=== PATIENT | female | born 1940 | race Caucasian/White ===

== ENCOUNTER 2017-11-16 09:33 | Outpatient (CLI) | payer MEDICARE, OTHER | END 2017-11-16 09:34 | disposition home or self-care (01) | LOC: BICMAMMO 09:33 | PROVIDERS: ATTEND Family Medicine | DX: Z12.31 Encounter for screening mammogram for malignant neoplasm of breast (principal) | CPT/HCPCS: 77063; 77067 ==

== ENCOUNTER 2019-01-13 10:56 | Inpatient (IN) | payer MEDICARE, OTHER ==
[2019-01-13 11:52] LABS: #Basophils 0.1 thou/uL (0.0-0.2); #Eosinphils 0.1 thou/uL (0.0-0.7); #Lymphocytes 1.7 thou/uL (1.20-3.40); #Monocytes 0.5 thou/uL (0.11-0.59); #Neutrophils 3.4 thou/uL (1.40-6.50); %Basophils 1.2 % (0.0-1.0); %Eosinophils 1.2 % (0.0-10.0); %Lymphocytes 29.2 % (21.0-51.0); %Monocytes 8.7 % (0.0-10.0); %Neutrophils 59.7 % (42.0-75.0); Hemoglobin 13.9 g/dL (12.0-16.0); Mean Corpuscular HGB CONC 31.9 g/dL (32.0-36.0); Mean Corpuscular Hemoglobin 28.3 pg (27.0-31.0); Mean Platelet Volume 9.4 fL (7.4-10.4); Platelet Count 164 thou/uL (130-400); Red Blood Cell (RBC) Count 4.91 mill/uL (4.20-5.40); White Blood Cell (WBC) Count 5.7 thou/uL (4.8-10.8)
[2019-01-13 11:58] LABS: INR-International Normal Ratio 2.4; PTT 34.5 SEC (22.9-36.1); Prothrombin Time 26.1 SEC (12.0-14.7)
[2019-01-13 12:06] LABS: Bilirubin Small (Negative); Blood, Urine Trace (Negative); Clarity CLOUDY (Clear); Glucose, Urine (Dipstick) Negative (Negative); Leukocyte Small (Negative); Nitrite Positive (Negative); Protein, Urine (Dipstick) Trace mg/dL (Neg-Trace); Specific Gravity, Urine 1.026 (1.002-1.036); Urobilinogen 0.2 mg/dL (0.2-1.0)
[2019-01-13 12:08] LABS: Bacteria/HPF 4+ HPF (None Seen); Squamous Epithelial 0-3 HPF (0-3)
[2019-01-13 12:10] LABS: Pathc Cast-AUWi Flag 5.71 (0-2.49)
[2019-01-13 12:19] LABS: ALT (SGPT) 20 U/L (8-55); AST (SGOT) 34 U/L (5-34); Albumin 3.8 g/dL (3.4-4.8); Alkaline Phosphatase 48 U/L (40-150); Anion Gap 15 mmol/L (10-20); BUN (Urea Nitrogen) 14 mg/dL (9.8-20.1); Bilirubin, Total 1.1 mg/dL (0.2-1.2); CK (CPK) 61 U/L (29-168); Calc. Creatinine Clearance 0 mL/min (70-130); Calcium 9.1 mg/dL (7.8-10.44); Carbon Dioxide 21 mmol/L (23-31); Chloride 110 mmol/L (98-107); Estimated GFR-MDRD Greater than 90; Globulin 3.3 g/dL (2.4-3.5); Glucose 105 mg/dL (83-110); Potassium 4.8 mmol/L (3.5-5.1); Protein, Total 7.1 g/dL (6.0-8.3); Sodium 141 mmol/L (136-145)
[2019-01-13 12:24] LABS: RBC/HPF 0-3 HPF (0-3)
[2019-01-13 12:25] LABS: Hyaline Casts/LPF 0-3 HYALINE CAST LPF (0-3 Hyaline)
--- NOTE | 2019-01-13 12:36 | CT ---
CT BRAIN NONCONTRAST: DATE: 01/13/2019 TIME: 12:09 p.m. HISTORY: A 78-year-old female with altered mental status. Confusion. Rule out stroke. COMPARISON: 01/05/2019 FINDINGS: Again noted is the moderate-sized region of low attenuation in the right occipital lobe. This is pro bably an infarction, either old or subacute (old is favored). There is a smaller possibility that th is could represent vasogenic edema, surrounding a tumor. Typically, an MRI with and without contrast would be recommended for this type of situation. However, the patient has a pacemaker. Therefore, contrast enhanced brain CT is recommended. The ventricles are normal in size and configuration. The re is diffuse prominence of the sulcus markings, representing diffuse brain parenchymal volume loss, typical for this age group. No acute intraaxial hemorrhage, mass effect, midline shift, or extraaxia l fluid collection. The calvarium is intact. There is no interval change overall. IMPRESSION: 1. No acute intracranial findings. 2. Moderate sized region of intraaxial low attenuation in the right occipital lobe, favored to repre sent an old or subacute infarction, in the right posterior cerebral artery territory, rather than rep resenting vasogenic edema around a neoplasm. In order to rule out the latter possibility, a contrast enhanced brain CT is recommended (unless there are contraindications). 3. No interval change overall since 01/05/2019. SHAWNEE Pollard POS: ABUNDIO
[2019-01-13] MEDS ORDERED: ISOVUE-370 76%-LOCM 1 ML ONE (12:47)
[2019-01-13] MEDS ORDERED: cefTRIAXone\\ROCEPHIN 1 GM VIAL ONE (13:05)
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
[2019-01-13 13:52] LABS: Digoxin 0.75 ng/mL (0.8-2.0)
--- NOTE | 2019-01-13 15:00 | PDOC.EVN ---
Event Note - Event Note Event Note: Date/Time: 01/13/19 1456 I personally evaluated the patient and discussed the management with Dr. Caba I agree with the History, Examination, Assessment and Plan documented above with any addition or exceptions noted below - 78 yo female with h/o A-fib on warfarin, hypothyroidism, NEGRITA, dementia brought to hospital due to worsening confusion over last 2 weeks. Recently seen by PCP and started on donazepril and had CT scan of brain. Son reports that plan was to obtain an MRI but that had not been scheduled yet. Denies any fever/chills/ N/V. PMH/PSH/Meds/SH reviewed and agree with resident's documentation. BP: 138/89 HR: 87 RR: 15 Tmax: 97.8 Pox: 98% on RA Wt: 64 kg Exam repeated by me and agree with resident's findings. Labs: WBC=5.7, H/H=13.9/43.7, Agc=999, UD=734, K=4.8, Ma=622, CO2=21, BUN/Cr=14/0.60, Udwx=561, Trop I,0.010, PT/INR=26.1/2.4, digoxin=0.75, U/A= (+) nitrite, tr blood, small LAE, 11-20 WBC, 4+ bact. CT brain- moderate sized area of intraaxial lowattenuatpmin R occipital lobe favoring old or subacute infarct. A/P: 1) AMS- increased confusion- Admit to stroke. Will check MRI if able due to findings on CT scan. On warfaring no need for aspirin. 2) UTI- start rocephin. Check urine culture. May also be contributing to patient's confusion. 3) H/o Afib now with pacer- continue warfarin. Monitor PT/INR. 4) Hypothyroidism- continue home meds.
[2019-01-13] MEDS ORDERED: Ondansetron ODT 4 MG TAB PO PRN (16:03)
[2019-01-13] MEDS ORDERED: Acetaminophen 325 MG TAB PO PRN (16:03)
[2019-01-13 16:06] VITALS: BMI 25.8
[2019-01-13 16:37] LABS: Amphetamine Not Detected (NotDetected); Barbiturates Screen Not Detected (NotDetected); Benzodiazepine Screen Not Detected (NotDetected); Cocaine Metabolite Screen Not Detected (NotDetected); Medtox Control Line Valid? VALID (VALID); Medtox Reader # READER 1; Methadone Not Detected (NotDetected); Methamphetamine Not Detected (NotDetected); Opiate Screen Not Detected (NotDetected); Oxycodone Screen Not Detected (NotDetected); Phencyclidine (PCP) Not Detected (NotDetected); THC/Cannabinoid Screen Not Detected (NotDetected); Tricyclic Screen Not Detected (NotDetected)
[2019-01-13 17:07] LABS: HIV (1/2) Antibody/Antigen Non-Reactive (NonReactive); HIV 1/2 INDEX 0.11 S/CO (<1.00); Syphilis Antibody Nonreactive (Nonreactive); Syphilis Antibody Index 0.06 S/CO (<1.00 Non-Reactive)
[2019-01-13] MEDS: Warfarin Sodium 2.5 MG TAB PO SCH (17:16)
--- NOTE | 2019-01-13 17:31 | CT ---
PRE AND POSTCONTRAST ENHANCED CT IMAGES BRAIN WELL CONTRAST ENHANCED CTA CAROTID ARTERY AND INT RACRANIAL CTA 01/13/19 2D and 3D reconstructed images performed on an independent 3D workstation. Pre and postcontrast enhanced CT images of the brain demonstrate an old area of infarction in the rig ht occipital area. This was seen on the patient's previous CT from 01/05/19 but has developed since th e previous CT from 03/19/16. CTA carotids/neck CT demonstrate multiple calcification of the aortopulmonary lymph nodes. This may r epresent previous inflammatory process. The right brachiocephalic artery is patent. The right and left subclavian arteries are patent. RIGHT CAROTID: The right common carotid artery is patent. Some mild atherosclerotic plaque seen in the distal right CCA extending to the right ECA. The right ICA is patent along its entire course. LEFT CAROTID: The left common carotid artery is patent. Minimal distal most aspect left CCA calcification seen. The right and left vertebral arteries are patent. INTRACRANIAL CTA: The supraclinoid ICAs bilaterally are unremarkable. Good flow seen in the GABRIELLA and MCA vessels bilater ally without evidence of occlusion. The right and left posterior cerebral arteries are patent. IMPRESSION: Subacute or old right occipital area of stroke present on patient's recent CT from 01/05/19. No other significant intracranial abnormality seen. No significant carotid or intracranial vascular abnormalit y seen. POS: TRAVIS
[2019-01-13] MEDS ORDERED: Prevnar 13-Val Conj/PF 0.5 ML SYRINGE IM ONE (21:00)
[2019-01-14 05:47] LABS: Anion Gap 11 mmol/L (10-20); BUN (Urea Nitrogen) 8 mg/dL (9.8-20.1); Calc. Creatinine Clearance 76 mL/min (70-130); Calcium 8.6 mg/dL (7.8-10.44); Carbon Dioxide 22 mmol/L (23-31); Chloride 110 mmol/L (98-107); Estimated GFR-MDRD Greater than 90; Glucose 110 mg/dL (83-110); Sodium 139 mmol/L (136-145)
--- NOTE | 2019-01-14 05:57 | PDOC.FM ---
- Subjective Subjective: A&O x2, not to time. Denies weakness, dysuria. No overnight events. She is unsure of the type of pacemaker she has placed. - Objective MAR Reviewed: Yes Vital Signs & Weight: Vital Signs (12 hours) Temp Pulse Resp BP Pulse Ox 01/14/19 03:48 97.9 F 72 18 140/87 97 01/13/19 23:47 98.1 F 70 12 103/69 95 01/13/19 20:00 98.7 F 72 16 123/78 97 Weight Weight 64.042 kg I&O: 01/12/19 01/13/19 01/14/19 06:59 06:59 06:59 Intake Total 540 Balance 540 Result Diagrams: 01/13/19 11:16 01/14/19 05:12 Phys Exam - Physical Examination Constitutional: NAD HEENT: moist MMs Neck: supple Respiratory: no wheezing, clear to auscultation bilateral Cardiovascular: RRR, no significant murmur V paced Gastrointestinal: soft, non-tender, positive bowel sounds Musculoskeletal: no edema Neurological: non-focal, moves all 4 limbs Psychiatric: normal affect Deviation from normal: A&O to person and place. Not to time Skin: cap refill <2 seconds Dx/Plan (1) UTI (urinary tract infection) Status: Acute (2) Acute encephalopathy Code(s): G93.40 - ENCEPHALOPATHY, UNSPECIFIED Status: Acute (3) Dementia Code(s): F03.90 - UNSPECIFIED DEMENTIA WITHOUT BEHAVIORAL DISTURBANCE Status: Acute (4) Generalized anxiety disorder Code(s): F41.1 - GENERALIZED ANXIETY DISORDER Status: Chronic (5) HTN (hypertension) Code(s): I10 - ESSENTIAL (PRIMARY) HYPERTENSION Status: Chronic (6) Hypothyroidism Code(s): E03.9 - HYPOTHYROIDISM, UNSPECIFIED Status: Chronic (7) Vitamin D deficiency Code(s): E55.9 - VITAMIN D DEFICIENCY, UNSPECIFIED Status: Chronic (8) Atrial fibrillation Code(s): I48.91 - UNSPECIFIED ATRIAL FIBRILLATION Status: Chronic - Plan Plan: 78yo female with pmh of dementia and atrial fibrillation on chronic AC with warfarin admitted for acute encephalopathy of 2 weeks duration Acute encephalopathy - Uncertain etiology. Treating UTI found on UA, culture pending. - Recent bloodwork 2 weeks ago, normal B12 & TSH levels - CT 3/8: subacute infarct vs vasogenic edema around neoplasm Right occipital lobe - Head & neck CTA: Subacute or old right occipital area of stroke seen on CT - UDS, RPR, HIV neg. Digoxin 0.75 - Haldol PRN for agitation, frequently reorientation. Avoid caffeine which, per son, provokes agitation. - Plan for MRI although pt with pacemaker, this will need to be evaluated to see if it is compatible. - Unable to have CT with contrast today due to contrast yesterday. Will order this for tomorrow. - PT/OT ordered to eval for placement - Echo ordered UTI - UA: cloudy & reynaldo in color with 4+ bacteria, LE, & nitrites. - Previous urine Cxs have been + for E. coli sensitive to cephalosporins - Continue IV Rocephin - Culture pending Hyperchloremic metabolic acidosis - Bicarb slightly low at 22 & Chloride 110. No GI losses but decreased PO intake. Likely mildly volume depleted 2/2 poor PO intake. - Improving with PO hydration - No IVF as not clinically volume depleted and HD stable Dementia - Continue home meds HTN - Continue home meds Hypothyroidism - Continue home meds Atrial fibrillation on chronic AC w/ warfarin - Continue Warfarin - Monitor INR Vitamin D deficiency - 01/05 low Vitamin D level - Continue home meds NEGRITA - Haldol for agitation - Consider chronic anxiolytic therapy initiation as an outpatient. Code Status: FULL DVT ppx: warfarin GI ppx: none
[2019-01-14] MEDS ORDERED: cefTRIAXone\\ROCEPHIN 1 GM in Sodium Chloride 0.9% 100 ML IVPB SCH (14:00)
[2019-01-14] MEDS: Warfarin Sodium 2.5 MG TAB PO SCH (16:55)
[2019-01-14] MEDS: Haloperidol Lactate 5 MG/ML VIAL SLOW IVP PRN ×2 (16:55→21:03)
[2019-01-14] MEDS: Donepezil HCl 5 MG TAB PO SCH (21:04)
--- NOTE | 2019-01-15 05:36 | PDOC.FM ---
- Subjective Subjective: Overnight had agitation requiring addition of scheduled quetiapine. This morning she was much more alert and oriented than yesterday. Oriented to person , place and year. - Objective MAR Reviewed: Yes Vital Signs & Weight: Vital Signs (12 hours) Temp Pulse Resp BP Pulse Ox 01/15/19 04:00 98.2 F 76 16 122/75 100 01/15/19 00:00 97.4 F L 71 16 109/64 94 L 01/14/19 20:00 97.4 F L 73 16 163/86 H 100 Weight Weight 64.042 kg I&O: 01/13/19 01/14/19 01/15/19 06:59 06:59 07:59 Intake Total 540 600 Balance 540 600 Result Diagrams: 01/13/19 11:16 01/14/19 05:12 Phys Exam - Physical Examination Constitutional: NAD HEENT: moist MMs Neck: supple Respiratory: no wheezing, clear to auscultation bilateral Cardiovascular: RRR, no significant murmur Gastrointestinal: soft, non-tender, positive bowel sounds Musculoskeletal: no edema Neurological: non-focal, moves all 4 limbs Psychiatric: normal affect Deviation from normal: Oriented to person place and year Skin: cap refill <2 seconds Dx/Plan (1) UTI (urinary tract infection) Status: Acute (2) Acute encephalopathy Code(s): G93.40 - ENCEPHALOPATHY, UNSPECIFIED Status: Acute (3) Dementia Code(s): F03.90 - UNSPECIFIED DEMENTIA WITHOUT BEHAVIORAL DISTURBANCE Status: Acute (4) Generalized anxiety disorder Code(s): F41.1 - GENERALIZED ANXIETY DISORDER Status: Chronic (5) HTN (hypertension) Code(s): I10 - ESSENTIAL (PRIMARY) HYPERTENSION Status: Chronic (6) Hypothyroidism Code(s): E03.9 - HYPOTHYROIDISM, UNSPECIFIED Status: Chronic (7) Vitamin D deficiency Code(s): E55.9 - VITAMIN D DEFICIENCY, UNSPECIFIED Status: Chronic (8) Atrial fibrillation Code(s): I48.91 - UNSPECIFIED ATRIAL FIBRILLATION Status: Chronic - Plan Plan: 78yo female with pmh of dementia and atrial fibrillation on chronic AC with warfarin admitted for acute encephalopathy of 2 weeks duration Acute encephalopathy - Uncertain etiology. Treating UTI found on UA, culture pending. - Recent bloodwork 2 weeks ago, normal B12 & TSH levels - CT 01/13: subacute infarct vs vasogenic edema around neoplasm Right occipital lobe - Head & neck CTA: Subacute or old right occipital area of stroke seen on CT - UDS, RPR, HIV neg. Digoxin 0.75 - Quetiapine GHADA and Haldol PRN for agitation, frequently reorientation. Avoid caffeine which, per son, provokes agitation. - Plan for CT with contrast today. Depending on results consider MRI although pacemaker compatibility will need to be investigated. - PT/OT ordered to eval for placement - Echo ordered UTI - UA: cloudy & reynaldo in color with 4+ bacteria, LE, & nitrites. - Urine culture E coli resistant to Augmentin and amoxicillin, intermediate to Zosyn - Transition from IV rocephin to Omnicef Hyperchloremic metabolic acidosis - Likely mildly volume depleted 12/10 poor PO intake - Improved with PO hydration - No IVF as not clinically volume depleted and HD stable Dementia - Continue home meds HTN - Continue home meds Hypothyroidism - Continue home meds Atrial fibrillation on chronic AC w/ warfarin - Continue Warfarin - Monitor INR Vitamin D deficiency - 01/05 low Vitamin D level - Continue home meds NEGRITA - Haldol for agitation - Consider chronic anxiolytic therapy initiation as an outpatient. Code Status: FULL DVT ppx: warfarin GI ppx: none
[2019-01-15] MEDS: Levothyroxine Sodium 100 MCG TAB PO SCH (05:54)
[2019-01-15 06:14] LABS: INR-International Normal Ratio 2.8; Prothrombin Time 29.3 SEC (12.0-14.7)
[2019-01-15] MEDS: Cefdinir 300 MG CAP PO SCH ×2 (10:28→20:52)
[2019-01-15] MEDS: Digoxin 0.125 MG TAB PO SCH (10:28)
[2019-01-15] MEDS ORDERED: Aspirin 81 mg Enteric Coated Tablet PO SCH (14:15)
[2019-01-15] MEDS: Warfarin Sodium 2.5 MG TAB PO SCH (18:10)
[2019-01-15] MEDS: Donepezil HCl 5 MG TAB PO SCH (20:52)
--- NOTE | 2019-01-16 05:50 | PDOC.FM ---
- Subjective Subjective: No overnight events. Oriented to person and place. Not time. Feels well and expresses desire to go home and to visit . Denies weakness, tingling. - Objective MAR Reviewed: Yes Vital Signs & Weight: Vital Signs (12 hours) Temp Pulse Resp BP Pulse Ox 01/16/19 04:00 97.5 F L 70 16 93/60 97 01/16/19 00:00 97.9 F 76 16 91/50 L 96 01/15/19 20:00 99.3 F 73 16 111/63 97 Weight Weight 64.042 kg I&O: 01/14/19 01/15/19 01/16/19 05:59 06:59 06:59 Intake Total 530 Balance 530 Result Diagrams: 01/13/19 11:16 01/14/19 05:12 Phys Exam - Physical Examination Constitutional: NAD HEENT: moist MMs Neck: supple Respiratory: no wheezing, clear to auscultation bilateral Cardiovascular: RRR, no significant murmur Gastrointestinal: soft, non-tender, positive bowel sounds Musculoskeletal: no edema Neurological: non-focal, moves all 4 limbs Psychiatric: normal affect Skin: cap refill <2 seconds Dx/Plan (1) UTI (urinary tract infection) Status: Acute (2) Acute encephalopathy Code(s): G93.40 - ENCEPHALOPATHY, UNSPECIFIED Status: Acute (3) Dementia Code(s): F03.90 - UNSPECIFIED DEMENTIA WITHOUT BEHAVIORAL DISTURBANCE Status: Acute (4) Generalized anxiety disorder Code(s): F41.1 - GENERALIZED ANXIETY DISORDER Status: Chronic (5) HTN (hypertension) Code(s): I10 - ESSENTIAL (PRIMARY) HYPERTENSION Status: Chronic (6) Hypothyroidism Code(s): E03.9 - HYPOTHYROIDISM, UNSPECIFIED Status: Chronic (7) Vitamin D deficiency Code(s): E55.9 - VITAMIN D DEFICIENCY, UNSPECIFIED Status: Chronic (8) Atrial fibrillation Code(s): I48.91 - UNSPECIFIED ATRIAL FIBRILLATION Status: Chronic - Plan Plan: 78yo female with pmh of dementia and atrial fibrillation on chronic AC with warfarin admitted for acute encephalopathy of 2 weeks duration Acute encephalopathy - Uncertain etiology. Treating E coli UTI - Recent bloodwork 2 weeks ago, normal B12 & TSH levels - CT 01/13: subacute infarct vs vasogenic edema around neoplasm Right occipital lobe - Head & neck CTA/CT with contrast: Subacute or old right occipital area of stroke seen on CT 01/05/19 - UDS, RPR, HIV neg. Digoxin 0.75 - Quetiapine GHADA and Haldol PRN for agitation, frequently reorientation. Avoid caffeine which, per son, provokes agitation. - PT/OT ordered to eval for placement - Echo: EF 50-55%. Mod/Sever mitral, tricuspid regurg. Mod aortic regurg. UTI - UA: cloudy & reynaldo in color with 4+ bacteria, LE, & nitrites. - Urine culture E coli resistant to Augmentin and amoxicillin, intermediate to Zosyn - Transition from IV rocephin to Omnicef Hyperchloremic metabolic acidosis - Likely mildly volume depleted 12/10 poor PO intake - Improved with PO hydration - No IVF as not clinically volume depleted and HD stable Dementia - Holding home med due to med interaction HTN - Continue home meds Hypothyroidism - Continue home meds Atrial fibrillation on chronic AC w/ warfarin - Continue Warfarin - Monitor INR Vitamin D deficiency - 01/05 low Vitamin D level - Continue home meds NEGRITA - Haldol for agitation - Consider chronic anxiolytic therapy initiation as an outpatient. Code Status: FULL DVT ppx: warfarin GI ppx: none Dispo: pending OT recs and CM
[2019-01-16] MEDS: Levothyroxine Sodium 100 MCG TAB PO SCH (06:06)
[2019-01-16 06:11] LABS: INR-International Normal Ratio 3.2; Prothrombin Time 32.7 SEC (12.0-14.7)
[2019-01-16] MEDS: Aspirin 81 mg Enteric Coated Tablet PO SCH (09:17)
[2019-01-16] MEDS: Digoxin 0.125 MG TAB PO SCH (09:17)
[2019-01-16] MEDS: Cefdinir 300 MG CAP PO SCH ×2 (09:17→21:07)
--- NOTE | 2019-01-16 10:01 | CON ---
DATE OF CONSULTATION: ADDENDUM: Please see the note from Dr. Ortiz, for which I agree. The patient was seen, evaluated, and discussed with the residents by bedside. This is a 78-year-old patient, who is being admitted for some change in mental status. She is not a good historian. Family is not around her. It sounds like it has been there for now a few weeks. She seems to completely deny it and is confabulating reasons why including little epithelial inclusion cyst on her scalp that she keeps talking about whenever we talk about what is going on with her intracranially. She is alert, oriented to place and name, but off on the date, although not severely. The problem is the CTA showed subacute or old right occipital area of the stroke; however, the CT was also read as the possibility of a vasogenic edema around the neoplasm as possible and so they wanted to repeat the CT. Otherwise, the workup for altered mental status and delirium has been basically normal. She has no focal signs or symptoms. Possibly UTI based on urine and actually some Escherichia coli is growing, so that could also be playing into this and has been put on Rocephin for that. On exam, I think it seems really pretty normal. So, unfortunately, because when the contrast was given, we are not able to get a CT with contrast until tomorrow and has a pacemaker, so we cannot get an MRI. So, as long as that looks like just a previous stroke, likely be able to be discharged home with outpatient therapy. Job ID: [id number]
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
[2019-01-16 15:23] LABS: Platelet Count 158 thou/uL (130-400)
[2019-01-16] MEDS ORDERED: Warfarin Sodium 2.5 MG TAB PO SCH (17:00)
[2019-01-16] MEDS: Donepezil HCl 5 MG TAB PO SCH (21:07)
[2019-01-16] MEDS: Haloperidol Lactate 5 MG/ML VIAL SLOW IVP PRN (23:01)
[2019-01-17] MEDS ORDERED: Haloperidol Lactate 5 MG/ML VIAL SLOW IVP SCH (01:00)
[2019-01-17 05:48] LABS: Prothrombin Time 31.2 SEC (12.0-14.7)
--- NOTE | 2019-01-17 06:26 | PDOC.FM ---
- Subjective Subjective: Patient attempted to leave the hospital yesterday evening. Required Haldol. Otherwise no events overnight. Oriented to person and time but not place. Son arranging caregiver during the day while he is at work. Plans to discharge today with son. Denies pain, weakness. - Objective MAR Reviewed: Yes Vital Signs & Weight: Vital Signs (12 hours) Temp Pulse Resp BP Pulse Ox 01/17/19 00:00 97.6 F 85 19 119/61 97 01/16/19 20:00 97.8 F 75 19 97/57 L 98 Weight Weight 64.042 kg I&O: 01/15/19 01/16/19 01/17/19 06:59 06:59 06:59 Intake Total 530 1500 Balance 530 1500 Result Diagrams: 01/16/19 15:14 01/14/19 05:12 Phys Exam - Physical Examination Constitutional: NAD HEENT: moist MMs Neck: supple Respiratory: no wheezing, clear to auscultation bilateral Cardiovascular: RRR, no significant murmur Gastrointestinal: soft, non-tender, positive bowel sounds Musculoskeletal: no edema Neurological: moves all 4 limbs Deviation from normal: oriented to person and time. Not place Skin: cap refill <2 seconds Dx/Plan (1) UTI (urinary tract infection) Status: Acute (2) Acute encephalopathy Code(s): G93.40 - ENCEPHALOPATHY, UNSPECIFIED Status: Acute (3) Dementia Code(s): F03.90 - UNSPECIFIED DEMENTIA WITHOUT BEHAVIORAL DISTURBANCE Status: Acute (4) Generalized anxiety disorder Code(s): F41.1 - GENERALIZED ANXIETY DISORDER Status: Chronic (5) HTN (hypertension) Code(s): I10 - ESSENTIAL (PRIMARY) HYPERTENSION Status: Chronic (6) Hypothyroidism Code(s): E03.9 - HYPOTHYROIDISM, UNSPECIFIED Status: Chronic (7) Vitamin D deficiency Code(s): E55.9 - VITAMIN D DEFICIENCY, UNSPECIFIED Status: Chronic (8) Atrial fibrillation Code(s): I48.91 - UNSPECIFIED ATRIAL FIBRILLATION Status: Chronic - Plan Plan: 78yo female with pmh of dementia and atrial fibrillation on chronic AC with warfarin admitted for acute encephalopathy of 2 weeks duration Acute encephalopathy - Improving with treatment of UTI - Head & neck CTA/CT with contrast: Subacute or old right occipital area of stroke seen on CT 01/05/19 - UDS, RPR, HIV neg. Digoxin 0.75 - Quetiapine GHADA and Haldol PRN for agitation, frequently reorientation. Avoid caffeine. - F/u OT recommendations UTI - UA: cloudy & reynaldo in color with 4+ bacteria, LE, & nitrites. - Urine culture E coli resistant to Augmentin and amoxicillin, intermediate to Zosyn - Continue Omnicef Hyperchloremic metabolic acidosis - Likely mildly volume depleted 2/2 poor PO intake - Improved with PO hydration - No IVF as not clinically volume depleted and HD stable Dementia - Holding home med due to med interaction HTN - Continue home meds Hypothyroidism - Continue home meds Atrial fibrillation on chronic AC w/ warfarin - Continue Warfarin - Monitor INR and adjust dose accordingly Vitamin D deficiency - 01/05 low Vitamin D level - Continue home meds NEGRITA - Haldol for agitation - Consider chronic anxiolytic therapy initiation as an outpatient. Code Status: FULL DVT ppx: warfarin GI ppx: none Dispo: with son home with 24hr care
[2019-01-17] MEDS: Digoxin 0.125 MG TAB PO SCH (08:07)
[2019-01-17] MEDS: Cefdinir 300 MG CAP PO SCH (08:09)
[2019-01-17] MEDS: Levothyroxine Sodium 100 MCG TAB PO SCH (08:09)
[2019-01-17] MEDS: Aspirin 81 mg Enteric Coated Tablet PO SCH (08:10)
[2019-01-17 11:39] VITALS: BP 121/62; TEMP 97.5
--- NOTE | 2019-01-17 12:14 | PRG ---
DATE OF SERVICE: 01/17/2019 SUBJECTIVE: Ms. Willard is sitting quietly in a chair, in no distress. We are awaiting her son to take her home. She has old cerebrovascular disease and dementia, currently stable. Job ID: [id number]
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
== END 2019-01-17 16:10 | disposition home or self-care (01) | DRG 71 ==
LOC: ERS 10:56 → ERHOLD 14:20 → EEVIPCON 14:20 → 2SE 15:41
PROVIDERS: ADMIT Family Medicine; ATTEND Family Medicine
DX: G93.40 Encephalopathy, unspecified (principal); N39.0 Urinary tract infection, site not specified; E87.2 Acidosis; F03.90 Unspecified dementia, unspecified severity, without behavioral disturbance, psychotic disturbance, mood disturbance, and anxiety; I48.91 Unspecified atrial fibrillation; I10 Essential (primary) hypertension; B96.20 Unspecified Escherichia coli [E. coli] as the cause of diseases classified elsewhere; I08.3 Combined rheumatic disorders of mitral, aortic and tricuspid valves; R40.2412 Glasgow coma scale score 13-15, at arrival to emergency department; E03.9 Hypothyroidism, unspecified; E55.9 Vitamin D deficiency, unspecified; F41.1 Generalized anxiety disorder; Z95.0 Presence of cardiac pacemaker; Z86.73 Personal history of transient ischemic attack (TIA), and cerebral infarction without residual deficits; Z79.01 Long term (current) use of anticoagulants; Z91.14 Patient's other noncompliance with medication regimen; Z16.11 Resistance to penicillins
CPT/HCPCS: 36415; 70450; 70496; 70498; 80048; 80053; 80162; 80306; 81003; 81015; 82550; 84484; 85014; 85018; 85025; 85049; 85610; 85730; 86780; 87077; 87086; 87186; 87389; 90471; 90662; 90670; 93005; 93306; 96365; G0008; G0009; J0696; J1630; J7050; Q9966

== ENCOUNTER 2020-09-06 09:36 | Inpatient (IN) | payer MEDICARE, OTHER ==
[2020-09-06 10:44] LABS: #Eosinphils 0.1 thou/uL (0.0-0.7); #Lymphocytes 1.5 thou/uL (1.20-3.40); #Monocytes 0.6 thou/uL (0.11-0.59); #Neutrophils 3.3 thou/uL (1.40-6.50); %Basophils 0.5 % (0.0-1.0); %Lymphocytes 27.7 % (21.0-51.0); %Monocytes 11.2 % (0.0-10.0); %Neutrophils 59.6 % (42.0-75.0); Hemoglobin 12.7 g/dL (12.0-16.0); Mean Corpuscular HGB CONC 32.2 g/dL (32.0-36.0); Mean Corpuscular Hemoglobin 28.5 pg (27.0-31.0); Mean Corpuscular Volume 88.3 fL (78.0-98.0); Mean Platelet Volume 7.8 fL (7.4-10.4); Platelet Count 151 thou/uL (130-400); RBC Distribution Width 13.3 % (11.5-14.5); Red Blood Cell (RBC) Count 4.47 mill/uL (4.20-5.40); White Blood Cell (WBC) Count 5.5 thou/uL (4.8-10.8)
--- NOTE | 2020-09-06 11:10 | CT ---
CT ABDOMEN AND PELVIS WITH IV CONTRAST 09/06/2020 CLINICAL INFORMATION: Diarrhea and fever. Generalized weakness. COMPARISON: 08/19/2016 Technique: Multiple contiguous axial CT images are obtained through the abdomen and pelvis with IV contrast. Cor onal reformatted images are provided. FINDINGS: Lower Chest: There are groundglass density seen at each lung base greater on the right which are nons pecific but worrisome for viral pneumonitis such as Covid 19. The heart is enlarged. There is partial visualization of cardiac pacemaking leads. Trace left pleural effusion is present. Vessels: Scattered vascular calcium lesions are seen. The abdominal aorta is normal in caliber withou t evidence of an aortic dissection. Abdomen: Portal vein:Not opacified on this exam due to phase of imaging. Gallbladder: Surgically absent. Liver: Scattered hepatic granulomata. Spleen: Scattered splenic granulomata. Pancreas: within normal limits. Adrenals: within normal limits. Kidneys: Small fat density mass inferior pole left kidney is seen measuring 10 mm likely represents a n angiomyolipoma. There is a slightly increased density cystic lesion at the inferior pole right kidney measuring 1.4 cm which is stable in size compared to prior study although this lesion demonstr ated more hypodense appearance compared to prior study. Findings may be related to small amount of hemorrhage within the cyst. Subcentimeter too small to characterize hypodense lesions are seen in eac h kidney. Bowel: Multiple colonic diverticuli seen involving the descending and sigmoid colon. There is suggest ion of mild eccentric thickening involving the distal esophagus. Appendix: Not definitely visualized on this exam, but there are no secondary signs to suggest appendi citis. Peritoneum: No ascites or free air; no fluid collection. Mesentery and Retroperitoneum: No enlarged mesenteric or retroperitoneal lymph nodes. Abdominal Wall: within normal limits. Pelvis: Reproductive Organs: Evidence of hysterectomy. Bladder: within normal limits. Bones: Multilevel degenerative changes again present in the spine. IMPRESSION: 1. Bibasilar groundglass densities greater on the right which have the appearance suggestive of viral pneumonitis such as Covid 19. 2. Trace left pleural effusion. 3. Suggestion of eccentric thickening distal esophagus. Further evaluation with follow-up upper GI or endoscopy is recommended. 4. Left renal angiomyolipoma. 5. Hypodense cystic lesion inferior pole right kidney which is stable in size compared to prior exam in 2016, but now demonstrates slightly greater increased density which could be related to small amount of hemorrhage within the cyst. 6. Colonic diverticulosis. 7. Cardiomegaly. 8. Postoperative changes related to hysterectomy and cholecystectomy.
[2020-09-06 11:14] LABS: ALT (SGPT) 16 U/L (8-55); AST (SGOT) 27 U/L (5-34); Albumin 2.8 g/dL (3.4-4.8); Alkaline Phosphatase 49 U/L (40-110); Anion Gap 11 mmol/L (10-20); BUN (Urea Nitrogen) 11 mg/dL (9.8-20.1); Bilirubin, Total 0.3 mg/dL (0.2-1.2); Calc. Creatinine Clearance 0 mL/min (70-130); Calcium 7.4 mg/dL (7.8-10.44); Carbon Dioxide 22 mmol/L (23-31); Chloride 103 mmol/L (98-107); Estimated GFR-MDRD 88; Glucose 80 mg/dL (83-110); Lipase 22 U/L (8-78); Potassium 3.7 mmol/L (3.5-5.1); Protein, Total 5.8 g/dL (6.0-8.3); Sodium 132 mmol/L (136-145)
[2020-09-06] MEDS ORDERED: Cefepime 2 GM VIAL ONE (13:01)
[2020-09-06] MEDS ORDERED: Levofloxacin 500 mg/D5W 100 ml Premix Bag ONE (13:02)
[2020-09-06] MEDS ORDERED: Vancomycin 1 GM/200 ML BAG ONE (13:06)
[2020-09-06 13:48] LABS: SARS-CoV-2 NAA Rapid Test DETECTED (NotDetected)
--- NOTE | 2020-09-06 14:55 | RAD ---
PORTABLE CHEST ONE VIEW: 09/06/20 at 10:46 a.m. HISTORY: Fever, diarrhea. Generalized weakness. FINDINGS: Comparison is made with the exam of 06/10/20. The heart size is normal. Left sided pacing device remains in place. Calcified lymph node in the AP w indow is again noted. The lungs are well expanded with stable chronic changes. No lobar consolidation , pneumothoraces, or pleural effusions are seen. IMPRESSION: No acute process. POS: AH
[2020-09-06] MEDS ORDERED: Iopamidol 370 76% 100 ML VIAL ONE (15:06)
--- NOTE | 2020-09-06 15:27 | PDOC.HHP ---
Hospitalist HPI - History of Present Illness Fever, diarrhea History of Present Illness: 80 YO F with a PMH of Dementia, aFIB and hypothyroidism who resides in a NH and presented with fever and diarrhea. Pt is not able to provide a hx due to Dementia. Hx is therefore taken from discussion with Er Dr and review of past records. Pt was noted w fever and diarrhea of a few days duration. However, on presen tation to the ER, she was noted to be hypothermic requiring a bear hugger. CT abd was neg but COVID was positive. Unclear if [place] already has a COVID outbreak. she is therefore admitted for further eval. Hospitalist ROS - Review of Systems ROS unobtainable: due to mental status Constitutional: reports: fever Gastrointestinal: reports: diarrhea Hospitalist History - Past Medical History Source: old records Cardiac: reports: AFIB DESIGN TRANSFERRER: reports: Dementia Musculoskeletal: reports: Osteoarthritis Endocrine: reports: Hypothyroidism - Past Surgical History Past Surgical History: reports: Hysterectomy, Total Knee Replacement - Family History Family History: reports: cancer, cerebrovascular accident, hypertension - Social History Smoking Status: Former smoker Alcohol: reports: None Drugs: reports: none Living Situation: [facility] Activity level: uses cane/walker - Exam General Appearance: awake alert Eye: PERRL, anicteric sclera ENT: normocephalic atraumatic, no oropharyngeal lesions Neck: supple, symmetric, no JVD, no thyromegaly Heart: RRR, no gallops, no rubs, normal peripheral pulses Respiratory: CTAB, no wheezes, no rales, no ronchi Gastrointestinal: soft, non-tender, non-distended Gastrointestinal - other findings: distended due to palable bladder Extremities: no cyanosis, no clubbing, no edema Skin: no lesions, no rashes Neurological: cranial nerve grossly intact, no focal deficits Neurological - other findings: Not AAO x 3. Musculoskeletal: no muscle wasting Psychiatric - other findings: unable to fully asses due to dementia Hospitalist Results - Labs Result Diagrams: 09/06/20 10:37 09/06/20 10:37 Lab results: WBC 5.5 thou/uL (4.8-10.8) 09/06/20 10:37 Hgb 12.7 g/dL (12.0-16.0) 09/06/20 10:37 Hct 39.5 % (36.0-47.0) 10/30/20 10:37 MCV 88.3 fL (78.0-98.0) 09/06/20 10:37 Plt Count 151 thou/uL (130-400) 09/06/20 10:37 Neutrophils % 59.6 % (42.0-75.0) 09/06/20 10:37 Sodium 132 mmol/L (136-145) L 09/06/20 10:37 Potassium 3.7 mmol/L (3.5-5.1) 09/06/20 10:37 Chloride 103 mmol/L (98-107) 09/06/20 10:37 Carbon Dioxide 22 mmol/L (23-31) L 09/06/20 10:37 BUN 11 mg/dL (9.8-20.1) 09/06/20 10:37 Creatinine 0.65 mg/dL (0.6-1.1) 09/06/20 10:37 Glucose 80 mg/dL (83-110) L 09/06/20 10:37 Lactic Acid 1.2 mmol/L (0.5-2.2) 09/06/20 10:37 Calcium 7.4 mg/dL (7.8-10.44) L 09/06/20 10:37 Total Bilirubin 0.3 mg/dL (0.2-1.2) 09/06/20 10:37 AST 27 U/L (5-34) 09/06/20 10:37 ALT 16 U/L (8-55) 09/06/20 10:37 Alkaline Phosphatase 49 U/L (40-110) 09/06/20 10:37 Serum Total Protein 5.8 g/dL (6.0-8.3) L 09/06/20 10:37 Albumin 2.8 g/dL (3.4-4.8) L 09/06/20 10:37 Lipase 22 U/L (8-78) 09/06/20 10:37 Hospitalist H&P A/P - Problem (1) COVID-19 Code(s): U07.1 - COVID-19 Status: Acute Assessment and Plan: New diagnosis. Has received abx and steroids in the ER. Will cont abx and steroids. Add Vit D and C, Zinc. Monitor for symp improvement. (2) Dementia Code(s): F03.90 - UNSPECIFIED DEMENTIA WITHOUT BEHAVIORAL DISTURBANCE Status: Acute Qualifiers: Dementia type: unspecified type Dementia behavioral disturbance: without behavioral disturbance Qualified Code(s): F03.90 - Unspecified dementia without behavioral disturbance Assessment and Plan: Stable, cont supportive mgt. (3) HTN (hypertension) Code(s): I10 - ESSENTIAL (PRIMARY) HYPERTENSION Status: Chronic Assessment and Plan: Was hypotensive, improved after IVF. Monitor for now. Hold BP meds. (4) Hypothyroidism Code(s): E03.9 - HYPOTHYROIDISM, UNSPECIFIED Status: Chronic Qualifiers: Hypothyroidism type: unspecified Qualified Code(s): E03.9 - Hypothyroidism, unspecified Assessment and Plan: Will check TSH given recent hypothermia. (5) Hypothermia Code(s): T68.XXXA - HYPOTHERMIA, INITIAL ENCOUNTER Status: Acute Assessment and Plan: May be due to sepsis. Cont junior hugger as needed. Treat sepsis. (6) Sepsis Code(s): A41.9 - SEPSIS, UNSPECIFIED ORGANISM Status: Acute Qualifiers: Sepsis type: sepsis due to unspecified organism Assessment and Plan: Blood cx are pending. Sepsis as identified w hypothermia is likley due to COVID. Cont abx. Monitor sepsis indices (7) Diarrhea Code(s): R19.7 - DIARRHEA, UNSPECIFIED Status: Acute Qualifiers: Diarrhea type: unspecified type Qualified Code(s): R19.7 - Diarrhea, unspecified Assessment and Plan: Will send stool for cx and C diff testing. - Plan Plan: PPx: SCDs. CODE: Full. Dispo: Admit as inpat.
[2020-09-06] MEDS ORDERED: Guaifenesin DM 100-10/5 ML UDCUP PO PRN (15:51)
[2020-09-06] MEDS ORDERED: Communication Order-Pharmacy FS PRN (15:51)
[2020-09-06] MEDS ORDERED: Ondansetron PF 4 MG/2 ML Vial IVP PRN (15:51)
[2020-09-06 17:59] VITALS: BMI 25.2
[2020-09-06 18:08] LABS: Bacteria/HPF None Seen HPF (None Seen); Bilirubin Negative (Negative); Blood, Urine Negative (Negative); Clarity Clear (Clear); Glucose, Urine (Dipstick) Normal (Negative); Ketone, Urine Negative (Negative); Leukocyte Negative Leu/uL (Negative); Nitrite Negative (Negative); Protein, Urine (Dipstick) Negative (Neg-Trace); RBC/HPF 0-3 HPF (0-3); Specific Gravity, Urine 1.014 (1.002-1.036); Squamous Epithelial None Seen HPF (0-3); Urobilinogen Normal mg/dL (Less than 2); WBC/HPF 0-3 HPF (0-3); pH, Urine 6.5 (5.0-9.0)
[2020-09-06 18:14] LABS: Urine Culture Reflex No No
[2020-09-06] MEDS ORDERED: Enoxaparin Sodium 40 MG/0.4 ML SYRINGE SC SCH (21:00)
[2020-09-06] MEDS: Temazepam 15 MG CAP PO SCH (21:14)
[2020-09-06] MEDS: Cefepime 1 GM in Sodium Chloride 0.9% 100 ML IVPB SCH (21:14)
[2020-09-06] MEDS: OLANZapine 2.5 MG TAB PO SCH (21:15)
[2020-09-06] MEDS: Apixaban 5 MG TAB PO SCH (21:15)
[2020-09-06] MEDS: Famotidine 20 MG TAB PO SCH (21:15)
[2020-09-06] MEDS: OLANZapine 5 MG TAB PO SCH (21:15)
[2020-09-06] MEDS: Donepezil HCl 10 MG TAB PO SCH (21:15)
[2020-09-07] MEDS ORDERED: Levothyroxine Sodium 25 MCG TAB PO SCH (06:00)
[2020-09-07 06:46] LABS: #Lymphocytes 1.1 thou/uL (1.20-3.40); #Monocytes 0.7 thou/uL (0.11-0.59); #Neutrophils 6.9 thou/uL (1.40-6.50); %Eosinophils 0.2 % (0.0-10.0); %Lymphocytes 12.3 % (21.0-51.0); %Monocytes 7.6 % (0.0-10.0); Hemoglobin 13.3 g/dL (12.0-16.0); Mean Corpuscular HGB CONC 32.9 g/dL (32.0-36.0); Mean Corpuscular Hemoglobin 28.4 pg (27.0-31.0); Mean Corpuscular Volume 86.2 fL (78.0-98.0); Mean Platelet Volume 7.9 fL (7.4-10.4); Platelet Count 204 thou/uL (130-400); RBC Distribution Width 13.1 % (11.5-14.5); White Blood Cell (WBC) Count 8.6 thou/uL (4.8-10.8)
[2020-09-07 07:10] LABS: Anion Gap 12 mmol/L (10-20); BUN (Urea Nitrogen) 8 mg/dL (9.8-20.1); Calc. Creatinine Clearance 72 mL/min (70-130); Calcium 8.3 mg/dL (7.8-10.44); Carbon Dioxide 27 mmol/L (23-31); Chloride 104 mmol/L (98-107); Estimated GFR-MDRD Greater than 90; Glucose 91 mg/dL (83-110); Potassium 3.4 mmol/L (3.5-5.1); Sodium 140 mmol/L (136-145)
[2020-09-07] MEDS ORDERED: Potassium Chloride 20 MEQ TAB PO SCH (08:30)
[2020-09-07] MEDS ORDERED: FLU VACC QS2020-21(65YR UP)/PF 240 MCG/0.7 ML SYRINGE IM ONE (09:00)
[2020-09-07] MEDS: Apixaban 5 MG TAB PO SCH ×2 (09:45→20:26)
[2020-09-07] MEDS: Ascorbic Acid 500 mg Chewable Tablet PO SCH (09:45)
[2020-09-07] MEDS: Cholecalciferol 1,000 UNITS (25 MCG) TAB PO SCH (09:45)
[2020-09-07] MEDS: Cefepime 1 GM in Sodium Chloride 0.9% 100 ML IVPB SCH ×2 (09:45→20:27)
[2020-09-07] MEDS: OLANZapine 2.5 MG TAB PO SCH ×2 (09:45→20:26)
[2020-09-07] MEDS: Famotidine 20 MG TAB PO SCH ×2 (09:45→20:26)
[2020-09-07] MEDS: Zinc Sulfate 220 MG CAP PO SCH (09:45)
[2020-09-07] MEDS: Hydrochlorothiazide 25 MG TAB PO SCH (09:45)
[2020-09-07] MEDS: Aspirin 81 mg Enteric Coated Tablet PO SCH (09:45)
[2020-09-07] MEDS: Dexamethasone 4 mg/ml Vial SLOW IVP SCH (09:45)
--- NOTE | 2020-09-07 11:52 | PDOC.HOSPP ---
- Subjective Encounter Date: 09/07/20 Subjective: Pt is more and interactive. Looks clinically improved. Not oriented to place, I'm assuming this is her baseline. - Objective Vital Signs & Weight: Vital Signs (12 hours) Temp Pulse Resp BP Pulse Ox 09/07/20 04:00 98.3 F 75 18 125/74 99 Weight Weight 138 lb Result Diagrams: 09/07/20 06:07 09/07/20 06:07 Hospitalist ROS - Review of Systems Constitutional: denies: fever, chills, sweats, weakness, malaise, other Eyes: denies: pain, vision change, conjunctivae inflammation, eyelid inflammation, redness, other ENT: denies: ear pain, ear discharge, nose pain, nose discharge, nose congestion, mouth pain, mouth swelling, throat pain, throat swelling, other Respiratory: denies: cough, dry, shortness of breath, hemoptysis, SOB with excertion, pleuritic pain, sputum, wheezing, other Cardiovascular: denies: chest pain, palpitations, orthopnea, paroxysmal noc. dyspnea, edema, light headedness, other Gastrointestinal: denies: nausea, vomiting, abdominal pain, diarrhea, constipation, melena, hematochezia, other Genitourinary: denies: dysuria, frequency, incontinence, hematuria, retention, other Musculoskeletal: denies: neck pain, shoulder pain, arm pain, back pain, hand pain, leg pain, foot pain, other Skin: denies: rash, lesions, na, bruising, other Neurological: denies: weakness, numbness, incoordination, change in speech, confusion, seizures, other - Medication Medications: Active Medications Generic Name Dose Route Start Last Admin Trade Name Freq PRN Reason Stop Dose Admin Apixaban 5 mg 09/06/20 21:00 09/06/20 21:15 Apixaban 5 Mg Tab PO 5 mg BID GHADA Administration Donepezil HCl 10 mg 09/06/20 21:00 09/06/20 21:15 Donepezil Hcl 10 Mg Tab PO 10 mg HS GHADA Administration Famotidine 20 mg 09/06/20 21:00 09/06/20 21:15 Famotidine 20 Mg Tab PO 20 mg BID GHADA Administration Cefepime HCl 1 gm/ Sodium 100 mls @ 200 mls/hr 09/06/20 21:00 09/06/20 21:14 Chloride IVPB 100 mls Q12HR GHADA Administration Memantine 10 mg 09/06/20 21:00 09/06/20 21:15 Memantine Hcl 10 Mg Tab PO 10 mg BID GHADA Administration Olanzapine 2.5 mg 09/06/20 21:00 09/06/20 21:15 Olanzapine 2.5 Mg Tab PO 2.5 mg BID GHADA Administration Olanzapine 10 mg 09/06/20 21:00 09/06/20 21:15 Olanzapine 5 Mg Tab PO 10 mg HS GHADA Administration Temazepam 30 mg 09/06/20 21:00 09/06/20 21:14 Temazepam 15 Mg Cap PO 30 mg HS GHADA Administration - Exam General Appearance: NAD, awake alert Eye: PERRL, anicteric sclera ENT: normocephalic atraumatic, no oropharyngeal lesions Neck: supple, symmetric, no JVD, no thyromegaly Heart: RRR, no murmur, no gallops, no rubs Respiratory: CTAB, no wheezes, no rales, no ronchi Gastrointestinal: soft, non-tender, non-distended, normal bowel sounds Extremities: no clubbing, no edema Skin: no lesions, no rashes Neurological: cranial nerve grossly intact, no focal deficits Musculoskeletal: normal strength, no muscle wasting Psychiatric: normal affect, normal behavior Psychiatric - other findings: Pt has baseline dementia Hosp A/P (1) COVID-19 Code(s): U07.1 - COVID-19 Status: Acute Plan: Pt looks clinically improved. Not needing additional oxygen now. No fever noted. (2) Dementia Code(s): F03.90 - UNSPECIFIED DEMENTIA WITHOUT BEHAVIORAL DISTURBANCE Status: Acute Qualifiers: Dementia type: unspecified type Dementia behavioral disturbance: without behavioral disturbance Qualified Code(s): F03.90 - Unspecified dementia without behavioral disturbance Plan: At baseline. Will cont supportive care. (3) HTN (hypertension) Code(s): I10 - ESSENTIAL (PRIMARY) HYPERTENSION Status: Chronic Qualifiers: Hypertension type: essential hypertension Qualified Code(s): I10 - Essential (primary) hypertension Plan: Controlled. Cont BP meds. (4) Hypothyroidism Code(s): E03.9 - HYPOTHYROIDISM, UNSPECIFIED Status: Chronic Qualifiers: Hypothyroidism type: unspecified Qualified Code(s): E03.9 - Hypothyroidism, unspecified Plan: Very uncontrolled. TSH is 19.31. This may explain pt's hypothermia. Have increased dose of Synthroid to 125 mcg. Pt should f/u with her PCP in 1 month for TSH recheck. (5) Hypothermia Code(s): T68.XXXA - HYPOTHERMIA, INITIAL ENCOUNTER Status: Acute Qualifiers: Encounter type: initial encounter Qualified Code(s): T68.XXXA - Hypothermia, initial encounter Plan: Resolved. May have been from sepsis vs uncontrolled hypothyroidism. Cont to monitor temp. (6) Sepsis Code(s): A41.9 - SEPSIS, UNSPECIFIED ORGANISM Status: Acute Qualifiers: Sepsis type: sepsis due to unspecified organism Plan: Improved, cont current abx. (7) Diarrhea Code(s): R19.7 - DIARRHEA, UNSPECIFIED Status: Acute Qualifiers: Diarrhea type: unspecified type Qualified Code(s): R19.7 - Diarrhea, unspecified Plan: Improved. - Plan continue antibiotics, GI proph PPx: Lovenox. CODE: FULL. Dispo: cont current mgt. d/c in 1 -2 days.
[2020-09-07] MEDS: Temazepam 15 MG CAP PO SCH (20:26)
[2020-09-07] MEDS: Donepezil HCl 10 MG TAB PO SCH (20:26)
[2020-09-07] MEDS: OLANZapine 5 MG TAB PO SCH (20:26)
[2020-09-08] MEDS: Levothyroxine Sodium 125 MCG TAB PO SCH (05:43)
[2020-09-08 06:45] LABS: #Lymphocytes 1.4 thou/uL (1.20-3.40); #Monocytes 0.7 thou/uL (0.11-0.59); #Neutrophils 5.9 thou/uL (1.40-6.50); %Basophils 0.1 % (0.0-1.0); %Eosinophils 0.3 % (0.0-10.0); %Lymphocytes 17.4 % (21.0-51.0); %Monocytes 8.9 % (0.0-10.0); %Neutrophils 73.3 % (42.0-75.0); Hemoglobin 13.6 g/dL (12.0-16.0); Mean Corpuscular HGB CONC 32.6 g/dL (32.0-36.0); Mean Corpuscular Hemoglobin 28.1 pg (27.0-31.0); Mean Corpuscular Volume 86.2 fL (78.0-98.0); Platelet Count 256 thou/uL (130-400); RBC Distribution Width 13.1 % (11.5-14.5); Red Blood Cell (RBC) Count 4.82 mill/uL (4.20-5.40)
[2020-09-08 07:08] LABS: Anion Gap 16 mmol/L (10-20); BUN (Urea Nitrogen) 11 mg/dL (9.8-20.1); Calc. Creatinine Clearance 69 mL/min (70-130); Calcium 8.6 mg/dL (7.8-10.44); Carbon Dioxide 25 mmol/L (23-31); Chloride 103 mmol/L (98-107); Estimated GFR-MDRD 88; Glucose 97 mg/dL (83-110); Potassium 3.8 mmol/L (3.5-5.1); Sodium 140 mmol/L (136-145)
[2020-09-08] MEDS: OLANZapine 2.5 MG TAB PO SCH ×2 (08:59→21:46)
[2020-09-08] MEDS: Zinc Sulfate 220 MG CAP PO SCH (08:59)
[2020-09-08] MEDS: Ascorbic Acid 500 mg Chewable Tablet PO SCH (09:00)
[2020-09-08] MEDS: Famotidine 20 MG TAB PO SCH ×2 (09:01→21:47)
[2020-09-08] MEDS: Cholecalciferol 1,000 UNITS (25 MCG) TAB PO SCH (09:01)
[2020-09-08] MEDS: Aspirin 81 mg Enteric Coated Tablet PO SCH (09:02)
[2020-09-08] MEDS: Apixaban 5 MG TAB PO SCH ×2 (09:02→21:47)
[2020-09-08] MEDS: Cefepime 1 GM in Sodium Chloride 0.9% 100 ML IVPB SCH ×2 (09:02→21:43)
[2020-09-08] MEDS: Hydrochlorothiazide 25 MG TAB PO SCH (09:02)
[2020-09-08] MEDS: Dexamethasone 4 mg/ml Vial SLOW IVP SCH (09:05)
--- NOTE | 2020-09-08 15:42 | PDOC.HOSPP ---
- Subjective Encounter Date: 09/08/20 Encounter Time: 15:35 Subjective: f/u for COVID PNA receiving Cefepime/Dexamethasone/Eliquis/Vit C/Zinc. Has remained confused and placed in soft wrist restraints due to combativeness and pulling at IV's. - Objective Vital Signs & Weight: Vital Signs (12 hours) Temp Pulse Resp BP Pulse Ox 09/08/20 08:00 97.8 F 79 16 105/73 95 Weight Admit Weight 138 lb Weight 138 lb Result Diagrams: 09/08/20 05:58 09/08/20 05:58 Additional Labs: Microbiology 09/06/20 10:37 Venous blood - Right Hand Blood Culture - Preliminary NO GROWTH AT 48 HOURS 09/06/20 10:27 Venous blood - Left Hand Blood Culture - Preliminary NO GROWTH AT 48 HOURS Laboratory Tests 09/06/20 09/06/20 09/07/20 10:00 10:37 06:07 Sodium 132 L Potassium 3.7 3.4 L TSH 3rd Generation SARS-CoV-2 Rap RNA(RT-PCR) DETECTED A* 09/07/20 06:07 Sodium Potassium TSH 3rd Generation 19.3184 H SARS-CoV-2 Rap RNA(RT-PCR) Hospitalist ROS - Medication Medications: Active Medications Generic Name Dose Route Start Last Admin Trade Name Freq PRN Reason Stop Dose Admin Apixaban 5 mg 09/06/20 21:00 09/08/20 09:02 Apixaban 5 Mg Tab PO 5 mg BID GHADA Administration Ascorbic Acid 1,000 mg 09/07/20 09:00 09/08/20 09:00 Ascorbic Acid 500 Mg Chewable Tablet PO 1,000 mg DAILY GHADA Administration Aspirin 81 mg 09/07/20 09:00 09/08/20 09:02 Aspirin 81 Mg Enteric Coated Tablet PO 81 mg DAILY GHADA Administration Cholecalciferol 2,000 units 09/07/20 09:00 09/08/20 09:01 Cholecalciferol 1,000 Units (25 Mcg) Tab PO 2,000 units DAILY GHADA Administration Dexamethasone 6 mg 09/07/20 09:00 09/08/20 09:05 Dexamethasone 4 Mg/Ml Vial SLOW IVP 09/11/20 09:01 6 mg DAILY GHADA Administration Donepezil HCl 10 mg 09/06/20 21:00 09/07/20 20:26 Donepezil Hcl 10 Mg Tab PO 10 mg HS GHADA Administration Famotidine 20 mg 09/06/20 21:00 09/08/20 09:01 Famotidine 20 Mg Tab PO 20 mg BID GHADA Administration Hydrochlorothiazide 25 mg 09/07/20 09:00 09/08/20 09:02 Hydrochlorothiazide 25 Mg Tab PO 25 mg DAILY GHADA Administration Cefepime HCl 1 gm/ Sodium 100 mls @ 200 mls/hr 09/06/20 21:00 09/08/20 09:02 Chloride IVPB 100 mls Q12HR GHADA Administration Levothyroxine Sodium 125 mcg 09/08/20 06:00 09/08/20 05:43 Levothyroxine Sodium 125 Mcg Tab PO 125 mcg 0600 GHADA Administration Memantine 10 mg 09/06/20 21:00 09/08/20 09:01 Memantine Hcl 10 Mg Tab PO 10 mg BID GHADA Administration Metoprolol Succinate 75 mg 09/07/20 09:00 09/08/20 09:00 Metoprolol Succinate Xl 50 Mg Tab PO 75 mg DAILY GHADA Administration Olanzapine 2.5 mg 09/06/20 21:00 09/08/20 08:59 Olanzapine 2.5 Mg Tab PO 2.5 mg BID GHADA Administration Olanzapine 10 mg 09/06/20 21:00 09/07/20 20:26 Olanzapine 5 Mg Tab PO 10 mg HS GHADA Administration Temazepam 30 mg 09/06/20 21:00 09/07/20 20:26 Temazepam 15 Mg Cap PO 30 mg HS GHADA Administration Zinc Sulfate 220 mg 09/07/20 09:00 09/08/20 08:59 Zinc Sulfate 220 Mg Cap PO 220 mg DAILY GHADA Administration - Exam General Appearance: NAD, awake alert Eye: PERRL, anicteric sclera ENT: normocephalic atraumatic, no oropharyngeal lesions Neck: supple, symmetric, no JVD, no thyromegaly, no lymphadenopathy Heart: RRR, no gallops, no rubs, normal peripheral pulses Heart - other findings: S1, S2 Respiratory: CTAB, no wheezes, no rales, no ronchi, normal chest expansion, no tachypnea Gastrointestinal: soft, non-tender, non-distended, normal bowel sounds, no palpable masses Extremities: no cyanosis, no clubbing, no edema Skin: normal turgor, no lesions Neurological: cranial nerve grossly intact, no new deficit Musculoskeletal: normal tone, generalized weakness Psychiatric: oriented to person, flat affect Hosp A/P (1) COVID-19 Code(s): U07.1 - COVID-19 Status: Acute Plan: Continue Cefepime/Dexamethasone/Eliquis/Vit C/Zinc, currently no O2 requirement (2) Diarrhea Code(s): R19.7 - DIARRHEA, UNSPECIFIED Status: Acute Qualifiers: Diarrhea type: unspecified type Qualified Code(s): R19.7 - Diarrhea, unspecified Plan: Likely related to #1, supportive (3) Sepsis Code(s): A41.9 - SEPSIS, UNSPECIFIED ORGANISM Status: Acute Qualifiers: Sepsis type: sepsis due to unspecified organism Plan: Secondary to #1, resolving (4) Acute encephalopathy Code(s): G93.40 - ENCEPHALOPATHY, UNSPECIFIED Status: Acute Plan: Likely multifactorial given COVID 19 and baseline dementia (5) Dementia Code(s): F03.90 - UNSPECIFIED DEMENTIA WITHOUT BEHAVIORAL DISTURBANCE Status: Acute Qualifiers: Dementia type: unspecified type Dementia behavioral disturbance: without behavioral disturbance Qualified Code(s): F03.90 - Unspecified dementia without behavioral disturbance (6) Hypothyroidism Code(s): E03.9 - HYPOTHYROIDISM, UNSPECIFIED Status: Chronic Qualifiers: Hypothyroidism type: unspecified Qualified Code(s): E03.9 - Hypothyroidism, unspecified Plan: Poor control, check FT4 level, continue home Synthroid - Plan continue antibiotics, geriatric social worker, respiratory therapy, out of bed/ambulate, DVT proph w/SCDs Continue supportive mgmt Continue Cefepime Continue Dexamethasone Continue Eliquis O2 PRN Soft wrist restraints PRN for safety AM lab: FT4
[2020-09-08] MEDS: Donepezil HCl 10 MG TAB PO SCH (21:46)
[2020-09-08] MEDS: Temazepam 15 MG CAP PO SCH (21:46)
[2020-09-08] MEDS: OLANZapine 5 MG TAB PO SCH (21:46)
[2020-09-09] MEDS: Levothyroxine Sodium 125 MCG TAB PO SCH (05:32)
[2020-09-09] MEDS: Zinc Sulfate 220 MG CAP PO SCH (08:49)
[2020-09-09] MEDS: Hydrochlorothiazide 25 MG TAB PO SCH (08:49)
[2020-09-09] MEDS: Famotidine 20 MG TAB PO SCH ×2 (08:49→20:32)
[2020-09-09] MEDS: Cholecalciferol 1,000 UNITS (25 MCG) TAB PO SCH (08:49)
[2020-09-09] MEDS: Aspirin 81 mg Enteric Coated Tablet PO SCH (08:49)
[2020-09-09] MEDS: Ascorbic Acid 500 mg Chewable Tablet PO SCH (08:50)
[2020-09-09] MEDS: Apixaban 5 MG TAB PO SCH ×2 (08:50→20:33)
[2020-09-09] MEDS: Cefepime 1 GM in Sodium Chloride 0.9% 100 ML IVPB SCH ×2 (08:50→20:33)
[2020-09-09] MEDS: Dexamethasone 4 mg/ml Vial SLOW IVP SCH (08:51)
[2020-09-09] MEDS: OLANZapine 2.5 MG TAB PO SCH ×2 (08:57→20:39)
--- NOTE | 2020-09-09 15:38 | PDOC.HOSPP ---
- Subjective Encounter Date: 09/09/20 Encounter Time: 15:35 Subjective: f/u for COVID PNA on Dexamethasone/Remdesivir/Cefepime/Zinc/Vit C. Remains out of wrist restraints per nursing. - Objective Vital Signs & Weight: Vital Signs (12 hours) Temp Pulse Resp BP Pulse Ox 09/09/20 12:35 97.7 F 72 18 116/69 97 09/09/20 08:00 97.4 F L 77 20 126/73 99 Weight Admit Weight 138 lb Weight 138 lb Result Diagrams: 09/08/20 05:58 09/08/20 05:58 Additional Labs: Microbiology 09/06/20 10:37 Venous blood - Right Hand Blood Culture - Preliminary NO GROWTH AT 48 HOURS 09/06/20 10:27 Venous blood - Left Hand Blood Culture - Preliminary NO GROWTH AT 48 HOURS Laboratory Tests 09/06/20 09/06/20 09/07/20 10:00 10:37 06:07 Sodium 132 L Potassium 3.7 3.4 L TSH 3rd Generation SARS-CoV-2 Rap RNA(RT-PCR) DETECTED A* 09/07/20 06:07 Sodium Potassium TSH 3rd Generation 19.3184 H SARS-CoV-2 Rap RNA(RT-PCR) Hospitalist ROS - Medication Medications: Active Medications Generic Name Dose Route Start Last Admin Trade Name Freq PRN Reason Stop Dose Admin Apixaban 5 mg 09/06/20 21:00 09/09/20 08:50 Apixaban 5 Mg Tab PO 5 mg BID GHADA Administration Ascorbic Acid 1,000 mg 09/07/20 09:00 09/09/20 08:50 Ascorbic Acid 500 Mg Chewable Tablet PO 1,000 mg DAILY GHADA Administration Aspirin 81 mg 09/07/20 09:00 09/09/20 08:49 Aspirin 81 Mg Enteric Coated Tablet PO 81 mg DAILY GHADA Administration Cholecalciferol 2,000 units 09/07/20 09:00 09/09/20 08:49 Cholecalciferol 1,000 Units (25 Mcg) Tab PO 2,000 units DAILY GHADA Administration Dexamethasone 6 mg 09/07/20 09:00 09/09/20 08:51 Dexamethasone 4 Mg/Ml Vial SLOW IVP 09/11/20 09:01 6 mg DAILY GHADA Administration Donepezil HCl 10 mg 09/06/20 21:00 09/08/20 21:46 Donepezil Hcl 10 Mg Tab PO 10 mg HS GHADA Administration Famotidine 20 mg 09/06/20 21:00 09/09/20 08:49 Famotidine 20 Mg Tab PO 20 mg BID GHADA Administration Hydrochlorothiazide 25 mg 09/07/20 09:00 09/09/20 08:49 Hydrochlorothiazide 25 Mg Tab PO 25 mg DAILY GHADA Administration Cefepime HCl 1 gm/ Sodium 100 mls @ 200 mls/hr 09/06/20 21:00 09/09/20 08:50 Chloride IVPB 100 mls Q12HR GHADA Administration Levothyroxine Sodium 125 mcg 09/08/20 06:00 09/09/20 05:32 Levothyroxine Sodium 125 Mcg Tab PO 125 mcg 0600 GHADA Administration Memantine 10 mg 09/06/20 21:00 09/09/20 08:51 Memantine Hcl 10 Mg Tab PO 10 mg BID GHADA Administration Metoprolol Succinate 75 mg 09/07/20 09:00 09/09/20 08:51 Metoprolol Succinate Xl 50 Mg Tab PO 75 mg DAILY GHADA Administration Olanzapine 2.5 mg 09/06/20 21:00 09/09/20 08:57 Olanzapine 2.5 Mg Tab PO 2.5 mg BID GHADA Administration Olanzapine 10 mg 09/06/20 21:00 09/08/20 21:46 Olanzapine 5 Mg Tab PO 10 mg HS GHADA Administration Temazepam 30 mg 09/06/20 21:00 09/08/20 21:46 Temazepam 15 Mg Cap PO 30 mg HS GHADA Administration Zinc Sulfate 220 mg 09/07/20 09:00 09/09/20 08:49 Zinc Sulfate 220 Mg Cap PO 220 mg DAILY GHADA Administration - Exam General Appearance: NAD, awake alert Eye: PERRL, anicteric sclera ENT: normocephalic atraumatic, no oropharyngeal lesions Neck: supple, symmetric, no JVD, no thyromegaly, no lymphadenopathy Heart: RRR, no gallops, no rubs, normal peripheral pulses Heart - other findings: S1, S2 Respiratory: CTAB, no wheezes, no rales, no ronchi, normal chest expansion, no tachypnea Gastrointestinal: soft, non-tender, non-distended, normal bowel sounds, no palpable masses, no hepatomegaly Extremities: no cyanosis, no clubbing, no edema Skin: normal turgor, no lesions Neurological: cranial nerve grossly intact, no new deficit Musculoskeletal: normal tone, generalized weakness Psychiatric: oriented to person, flat affect Hosp A/P (1) COVID-19 Code(s): U07.1 - COVID-19 Status: Acute Plan: Continue Dexamethasone/Cefepime/Eliquis/Vit C/Zinc (2) Diarrhea Code(s): R19.7 - DIARRHEA, UNSPECIFIED Status: Acute Qualifiers: Diarrhea type: unspecified type Qualified Code(s): R19.7 - Diarrhea, unspecified Plan: Resolving (3) Sepsis Code(s): A41.9 - SEPSIS, UNSPECIFIED ORGANISM Status: Acute Qualifiers: Sepsis type: sepsis due to unspecified organism (4) Acute encephalopathy Code(s): G93.40 - ENCEPHALOPATHY, UNSPECIFIED Status: Acute Plan: Persistent but improved, out of wrist restraints, supportive mgmt (5) Dementia Code(s): F03.90 - UNSPECIFIED DEMENTIA WITHOUT BEHAVIORAL DISTURBANCE Status: Acute Qualifiers: Dementia type: unspecified type Dementia behavioral disturbance: without behavioral disturbance Qualified Code(s): F03.90 - Unspecified dementia without behavioral disturbance (6) Hypothyroidism Code(s): E03.9 - HYPOTHYROIDISM, UNSPECIFIED Status: Chronic Qualifiers: Hypothyroidism type: unspecified Qualified Code(s): E03.9 - Hypothyroidism, unspecified - Plan continue antibiotics, PT/OT, forensic social worker, out of bed/ambulate, DVT proph w/SCDs Continue supportive mgmt Continue Cefepime Continue Dexamethasone Continue Eliquis O2 PRN Soft wrist restraints d/c Continue isolation protocol
[2020-09-09] MEDS: Temazepam 15 MG CAP PO SCH (20:32)
[2020-09-09] MEDS: Melatonin 3 MG TAB PO PRN (20:33)
[2020-09-09] MEDS: Donepezil HCl 10 MG TAB PO SCH (20:33)
[2020-09-09] MEDS: OLANZapine 5 MG TAB PO SCH (20:40)
[2020-09-10] MEDS: Levothyroxine Sodium 125 MCG TAB PO SCH (06:05)
[2020-09-10] MEDS: Famotidine 20 MG TAB PO SCH ×2 (07:46→22:17)
[2020-09-10] MEDS: Cholecalciferol 1,000 UNITS (25 MCG) TAB PO SCH (07:46)
[2020-09-10] MEDS: Aspirin 81 mg Enteric Coated Tablet PO SCH (07:46)
[2020-09-10] MEDS: Apixaban 5 MG TAB PO SCH ×2 (07:46→22:14)
[2020-09-10] MEDS: Ascorbic Acid 500 mg Chewable Tablet PO SCH (07:46)
[2020-09-10] MEDS: Hydrochlorothiazide 25 MG TAB PO SCH (07:47)
[2020-09-10] MEDS: Dexamethasone 4 mg/ml Vial SLOW IVP SCH (07:47)
[2020-09-10] MEDS: Cefepime 1 GM in Sodium Chloride 0.9% 100 ML IVPB SCH ×2 (07:47→22:14)
[2020-09-10] MEDS: Zinc Sulfate 220 MG CAP PO SCH (07:51)
[2020-09-10] MEDS: OLANZapine 2.5 MG TAB PO SCH ×2 (07:53→22:18)
[2020-09-10] MEDS: Acetaminophen 325 MG TAB PO PRN (15:45)
--- NOTE | 2020-09-10 18:07 | PDOC.HOSPP ---
- Subjective Encounter Date: 09/10/20 Encounter Time: 18:00 Subjective: f/u for COVID PNA on Remdesivir/Cefepime/Dexamethasone/Vit C/Zinc. Remains confused and required soft wrist restraints temporarily. - Objective Vital Signs & Weight: Vital Signs (12 hours) Temp Pulse Resp BP Pulse Ox 09/10/20 13:00 97.7 F 71 24 H 130/98 H 96 09/10/20 08:15 97.3 F L 76 20 126/80 98 Weight Admit Weight 138 lb Weight 138 lb I&O: 09/09/20 09/10/20 09/11/20 06:59 06:59 06:59 Intake Total 810 120 Balance 810 120 Result Diagrams: 09/08/20 05:58 09/08/20 05:58 Additional Labs: Microbiology 09/06/20 10:37 Venous blood - Right Hand Blood Culture - Preliminary NO GROWTH AT 48 HOURS 09/06/20 10:27 Venous blood - Left Hand Blood Culture - Preliminary NO GROWTH AT 48 HOURS Laboratory Tests 09/06/20 09/06/20 09/07/20 10:00 10:37 06:07 Sodium 132 L Potassium 3.7 3.4 L TSH 3rd Generation SARS-CoV-2 Rap RNA(RT-PCR) DETECTED A* 09/07/20 06:07 Sodium Potassium TSH 3rd Generation 19.3184 H SARS-CoV-2 Rap RNA(RT-PCR) Hospitalist ROS - Medication Medications: Active Medications Generic Name Dose Route Start Last Admin Trade Name Freq PRN Reason Stop Dose Admin Acetaminophen 650 mg 09/06/20 15:51 09/10/20 15:45 Acetaminophen 325 Mg Tab PO 650 mg Q4H PRN Administration Headache/Fever/Mild Pain (1-3) Apixaban 5 mg 09/06/20 21:00 09/10/20 07:46 Apixaban 5 Mg Tab PO 5 mg BID GHADA Administration Ascorbic Acid 1,000 mg 09/07/20 09:00 09/10/20 07:46 Ascorbic Acid 500 Mg Chewable Tablet PO 1,000 mg DAILY GHADA Administration Aspirin 81 mg 09/07/20 09:00 09/10/20 07:46 Aspirin 81 Mg Enteric Coated Tablet PO 81 mg DAILY GHADA Administration Cholecalciferol 2,000 units 09/07/20 09:00 09/10/20 07:46 Cholecalciferol 1,000 Units (25 Mcg) Tab PO 2,000 units DAILY GHADA Administration Dexamethasone 6 mg 09/07/20 09:00 09/10/20 07:47 Dexamethasone 4 Mg/Ml Vial SLOW IVP 09/11/20 09:01 6 mg DAILY GHADA Administration Donepezil HCl 10 mg 09/06/20 21:00 09/09/20 20:33 Donepezil Hcl 10 Mg Tab PO 10 mg HS GHADA Administration Famotidine 20 mg 09/06/20 21:00 09/10/20 07:46 Famotidine 20 Mg Tab PO 20 mg BID GHADA Administration Hydrochlorothiazide 25 mg 09/07/20 09:00 09/10/20 07:47 Hydrochlorothiazide 25 Mg Tab PO 25 mg DAILY GHADA Administration Cefepime HCl 1 gm/ Sodium 100 mls @ 200 mls/hr 09/06/20 21:00 09/10/20 07:47 Chloride IVPB 100 mls Q12HR GHADA Administration Levothyroxine Sodium 125 mcg 09/08/20 06:00 09/10/20 06:05 Levothyroxine Sodium 125 Mcg Tab PO 125 mcg 0600 GHADA Administration Melatonin 3 mg 09/09/20 19:56 09/09/20 20:33 Melatonin 3 Mg Tab PO 3 mg HS PRN Administration Insomnia Memantine 10 mg 09/06/20 21:00 09/10/20 07:47 Memantine Hcl 10 Mg Tab PO 10 mg BID GHADA Administration Metoprolol Succinate 75 mg 09/07/20 09:00 09/10/20 07:45 Metoprolol Succinate Xl 50 Mg Tab PO 75 mg DAILY GHADA Administration Olanzapine 2.5 mg 09/06/20 21:00 09/10/20 07:53 Olanzapine 2.5 Mg Tab PO 2.5 mg BID GHADA Administration Olanzapine 10 mg 09/06/20 21:00 09/09/20 20:40 Olanzapine 5 Mg Tab PO 10 mg HS GHADA Administration Temazepam 30 mg 09/06/20 21:00 09/09/20 20:32 Temazepam 15 Mg Cap PO 30 mg HS GHADA Administration Zinc Sulfate 220 mg 09/07/20 09:00 09/10/20 07:51 Zinc Sulfate 220 Mg Cap PO 220 mg DAILY GHADA Administration - Exam General Appearance: NAD, awake alert Eye: PERRL, anicteric sclera ENT: normocephalic atraumatic, no oropharyngeal lesions Neck: supple, symmetric, no JVD, no thyromegaly Heart: RRR, no gallops, no rubs, normal peripheral pulses Heart - other findings: S1, S2 Respiratory: normal chest expansion, no tachypnea Respiratory - other findings: few rhonchi o/w clear Gastrointestinal: soft, non-tender, non-distended, normal bowel sounds, no palpable masses Extremities: no cyanosis, no clubbing, no edema Skin: normal turgor, no lesions Neurological: cranial nerve grossly intact, no new deficit Psychiatric: oriented to person, flat affect Hosp A/P (1) COVID-19 Code(s): U07.1 - COVID-19 Status: Acute Plan: Continue Remdesivir/Cefepime/Dexamethasone/Vit C/Zinc (2) Diarrhea Code(s): R19.7 - DIARRHEA, UNSPECIFIED Status: Acute Qualifiers: Diarrhea type: unspecified type Qualified Code(s): R19.7 - Diarrhea, unspecified (3) Sepsis Code(s): A41.9 - SEPSIS, UNSPECIFIED ORGANISM Status: Acute Qualifiers: Sepsis type: sepsis due to unspecified organism (4) Acute encephalopathy Code(s): G93.40 - ENCEPHALOPATHY, UNSPECIFIED Status: Acute Plan: Improved, continue supportive mgmt, likely exacerbated by underlying dementia (5) Dementia Code(s): F03.90 - UNSPECIFIED DEMENTIA WITHOUT BEHAVIORAL DISTURBANCE Status: Acute Qualifiers: Dementia type: unspecified type Dementia behavioral disturbance: without behavioral disturbance Qualified Code(s): F03.90 - Unspecified dementia without behavioral disturbance (6) Hypothyroidism Code(s): E03.9 - HYPOTHYROIDISM, UNSPECIFIED Status: Chronic Qualifiers: Hypothyroidism type: unspecified Qualified Code(s): E03.9 - Hypothyroidism, unspecified - Plan continue antibiotics, PT/OT, social sciences chair, respiratory therapy, out of bed/ambulate, DVT proph w/SCDs Continue supportive mgmt Continue Cefepime Continue Dexamethasone Continue Eliquis O2 PRN Soft wrist restraints d/c Continue isolation protocol
[2020-09-10] MEDS: Donepezil HCl 10 MG TAB PO SCH (22:16)
[2020-09-10] MEDS: OLANZapine 5 MG TAB PO SCH (22:18)
[2020-09-10] MEDS: Temazepam 15 MG CAP PO SCH (22:18)
[2020-09-11] MEDS: Levothyroxine Sodium 125 MCG TAB PO SCH (06:11)
[2020-09-11] MEDS: Cefepime 1 GM in Sodium Chloride 0.9% 100 ML IVPB SCH ×2 (08:42→21:14)
[2020-09-11] MEDS: Ascorbic Acid 500 mg Chewable Tablet PO SCH (08:47)
[2020-09-11] MEDS: Cholecalciferol 1,000 UNITS (25 MCG) TAB PO SCH (08:47)
[2020-09-11] MEDS: Apixaban 5 MG TAB PO SCH ×2 (08:48→21:14)
[2020-09-11] MEDS: Famotidine 20 MG TAB PO SCH ×2 (08:48→21:15)
[2020-09-11] MEDS: Dexamethasone 4 mg/ml Vial SLOW IVP SCH (08:48)
[2020-09-11] MEDS: Aspirin 81 mg Enteric Coated Tablet PO SCH (08:48)
[2020-09-11] MEDS: Hydrochlorothiazide 25 MG TAB PO SCH (08:48)
[2020-09-11] MEDS: Zinc Sulfate 220 MG CAP PO SCH (08:48)
[2020-09-11] MEDS: OLANZapine 2.5 MG TAB PO SCH ×2 (12:36→21:16)
--- NOTE | 2020-09-11 17:25 | PDOC.HOSPP ---
- Subjective Encounter Date: 09/11/20 Encounter Time: 17:15 Subjective: f/u for COVID PNA s/p Remdesivir now receiving Dexamethasone/Cefepime/Vit C/Zinc. - Objective Vital Signs & Weight: Vital Signs (12 hours) Temp Pulse Resp BP BP Pulse Ox 09/11/20 15:21 98 F 80 20 118/80 97 09/11/20 13:00 98 F 74 20 112/77 96 09/11/20 08:40 98 F 74 20 121/80 99 Weight Admit Weight 138 lb Weight 138 lb I&O: 09/10/20 09/11/20 09/12/20 06:59 06:59 06:59 Intake Total 810 120 920 Output Total 1500 Balance 810 120 -580 Result Diagrams: 09/08/20 05:58 09/08/20 05:58 Additional Labs: Microbiology 09/06/20 10:37 Venous blood - Right Hand Blood Culture - Preliminary NO GROWTH AT 48 HOURS 09/06/20 10:27 Venous blood - Left Hand Blood Culture - Preliminary NO GROWTH AT 48 HOURS Laboratory Tests 09/06/20 09/06/20 09/07/20 10:00 10:37 06:07 Sodium 132 L Potassium 3.7 3.4 L TSH 3rd Generation SARS-CoV-2 Rap RNA(RT-PCR) DETECTED A* 09/07/20 06:07 Sodium Potassium TSH 3rd Generation 19.3184 H SARS-CoV-2 Rap RNA(RT-PCR) Hospitalist ROS - Medication Medications: Active Medications Generic Name Dose Route Start Last Admin Trade Name Freq PRN Reason Stop Dose Admin Acetaminophen 650 mg 09/06/20 15:51 09/10/20 15:45 Acetaminophen 325 Mg Tab PO 650 mg Q4H PRN Administration Headache/Fever/Mild Pain (1-3) Apixaban 5 mg 09/06/20 21:00 09/11/20 08:48 Apixaban 5 Mg Tab PO 5 mg BID GHADA Administration Ascorbic Acid 1,000 mg 09/07/20 09:00 09/11/20 08:47 Ascorbic Acid 500 Mg Chewable Tablet PO 1,000 mg DAILY GHADA Administration Aspirin 81 mg 09/07/20 09:00 09/11/20 08:48 Aspirin 81 Mg Enteric Coated Tablet PO 81 mg DAILY GHADA Administration Cholecalciferol 2,000 units 09/07/20 09:00 09/11/20 08:47 Cholecalciferol 1,000 Units (25 Mcg) Tab PO 2,000 units DAILY GHADA Administration Donepezil HCl 10 mg 09/06/20 21:00 09/10/20 22:16 Donepezil Hcl 10 Mg Tab PO 10 mg HS GHADA Administration Famotidine 20 mg 09/06/20 21:00 09/11/20 08:48 Famotidine 20 Mg Tab PO 20 mg BID GHADA Administration Hydrochlorothiazide 25 mg 09/07/20 09:00 09/11/20 08:48 Hydrochlorothiazide 25 Mg Tab PO 25 mg DAILY GHADA Administration Cefepime HCl 1 gm/ Sodium 100 mls @ 200 mls/hr 09/06/20 21:00 09/11/20 08:42 Chloride IVPB 100 mls Q12HR GHADA Administration Levothyroxine Sodium 125 mcg 09/08/20 06:00 09/11/20 06:11 Levothyroxine Sodium 125 Mcg Tab PO 125 mcg 0600 GHADA Administration Melatonin 3 mg 09/09/20 19:56 09/09/20 20:33 Melatonin 3 Mg Tab PO 3 mg HS PRN Administration Insomnia Memantine 10 mg 09/06/20 21:00 09/11/20 08:48 Memantine Hcl 10 Mg Tab PO 10 mg BID GHADA Administration Metoprolol Succinate 75 mg 09/07/20 09:00 09/11/20 08:47 Metoprolol Succinate Xl 50 Mg Tab PO 75 mg DAILY GHADA Administration Olanzapine 2.5 mg 09/06/20 21:00 09/11/20 12:36 Olanzapine 2.5 Mg Tab PO 2.5 mg BID GHADA Administration Olanzapine 10 mg 09/06/20 21:00 09/10/20 22:18 Olanzapine 5 Mg Tab PO 10 mg HS GHADA Administration Temazepam 30 mg 09/06/20 21:00 09/10/20 22:18 Temazepam 15 Mg Cap PO 30 mg HS GHADA Administration Zinc Sulfate 220 mg 09/07/20 09:00 09/11/20 08:48 Zinc Sulfate 220 Mg Cap PO 220 mg DAILY GHADA Administration - Exam General Appearance: NAD, awake alert Eye: PERRL, anicteric sclera ENT: normocephalic atraumatic, no oropharyngeal lesions Neck: supple, symmetric, no JVD, no thyromegaly Heart: RRR, no gallops, no rubs, normal peripheral pulses Heart - other findings: S1, S2 Respiratory: CTAB, no wheezes, no rales, no ronchi, normal chest expansion Gastrointestinal: soft, non-tender, non-distended, normal bowel sounds, no palpable masses Extremities: no cyanosis, no clubbing, no edema Skin: normal turgor, no lesions Neurological: cranial nerve grossly intact, no new deficit Musculoskeletal: generalized weakness Psychiatric: oriented to person, flat affect Hosp A/P (1) COVID-19 Code(s): U07.1 - COVID-19 Status: Acute (2) Diarrhea Code(s): R19.7 - DIARRHEA, UNSPECIFIED Status: Acute Qualifiers: Diarrhea type: unspecified type Qualified Code(s): R19.7 - Diarrhea, unspecified Plan: Resolving, likely related to COVID-19 (3) Sepsis Code(s): A41.9 - SEPSIS, UNSPECIFIED ORGANISM Status: Acute Qualifiers: Sepsis type: sepsis due to unspecified organism (4) Acute encephalopathy Code(s): G93.40 - ENCEPHALOPATHY, UNSPECIFIED Status: Acute (5) Dementia Code(s): F03.90 - UNSPECIFIED DEMENTIA WITHOUT BEHAVIORAL DISTURBANCE Status: Acute Qualifiers: Dementia type: unspecified type Dementia behavioral disturbance: without behavioral disturbance Qualified Code(s): F03.90 - Unspecified dementia without behavioral disturbance (6) Hypothyroidism Code(s): E03.9 - HYPOTHYROIDISM, UNSPECIFIED Status: Chronic Qualifiers: Hypothyroidism type: unspecified Qualified Code(s): E03.9 - Hypothyroidism, unspecified - Plan 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
[2020-09-11] MEDS: Donepezil HCl 10 MG TAB PO SCH (21:15)
[2020-09-11] MEDS: Temazepam 15 MG CAP PO SCH (21:16)
[2020-09-11] MEDS: OLANZapine 5 MG TAB PO SCH (21:36)
[2020-09-12] MEDS: Levothyroxine Sodium 125 MCG TAB PO SCH (05:36)
[2020-09-12] MEDS: Zinc Sulfate 220 MG CAP PO SCH (09:14)
[2020-09-12] MEDS: Cholecalciferol 1,000 UNITS (25 MCG) TAB PO SCH (09:14)
[2020-09-12] MEDS: OLANZapine 2.5 MG TAB PO SCH ×2 (09:14→23:04)
[2020-09-12] MEDS: Apixaban 5 MG TAB PO SCH ×2 (09:15→23:02)
[2020-09-12] MEDS: Hydrochlorothiazide 25 MG TAB PO SCH (09:16)
[2020-09-12] MEDS: Aspirin 81 mg Enteric Coated Tablet PO SCH (09:16)
[2020-09-12] MEDS: Famotidine 20 MG TAB PO SCH ×2 (09:17→23:02)
[2020-09-12] MEDS: Ascorbic Acid 500 mg Chewable Tablet PO SCH (09:18)
[2020-09-12] MEDS: Cefepime 1 GM in Sodium Chloride 0.9% 100 ML IVPB SCH (09:18)
[2020-09-12] MEDS: Acetaminophen 325 MG TAB PO PRN (11:30)
--- NOTE | 2020-09-12 11:39 | PDOC.HOSPP ---
- Subjective Encounter Date: 09/12/20 Encounter Time: 11:25 Subjective: f/u for COVID-19 viral infection receiving Cefepime/Eliquis. Nurse reports pt was wandering in halls and had to be placed in restraints. - Objective Vital Signs & Weight: Vital Signs (12 hours) Pulse Resp Pulse Ox 09/12/20 00:15 74 18 97 Weight Admit Weight 138 lb Weight 138 lb I&O: 09/11/20 09/12/20 09/13/20 06:59 06:59 06:59 Intake Total 120 1750 Output Total 1500 Balance 120 250 Result Diagrams: 09/08/20 05:58 09/08/20 05:58 Additional Labs: Microbiology 09/06/20 10:37 Venous blood - Right Hand Blood Culture - Preliminary NO GROWTH AT 48 HOURS 09/06/20 10:27 Venous blood - Left Hand Blood Culture - Preliminary NO GROWTH AT 48 HOURS Laboratory Tests 09/06/20 09/06/20 09/07/20 10:00 10:37 06:07 Sodium 132 L Potassium 3.7 3.4 L TSH 3rd Generation SARS-CoV-2 Rap RNA(RT-PCR) DETECTED A* 09/07/20 06:07 Sodium Potassium TSH 3rd Generation 19.3184 H SARS-CoV-2 Rap RNA(RT-PCR) Hospitalist ROS - Medication Medications: Active Medications Generic Name Dose Route Start Last Admin Trade Name Freq PRN Reason Stop Dose Admin Acetaminophen 650 mg 09/06/20 15:51 09/10/20 15:45 Acetaminophen 325 Mg Tab PO 650 mg Q4H PRN Administration Headache/Fever/Mild Pain (1-3) Apixaban 5 mg 09/06/20 21:00 09/12/20 09:15 Apixaban 5 Mg Tab PO 5 mg BID GHADA Administration Ascorbic Acid 1,000 mg 09/07/20 09:00 09/12/20 09:18 Ascorbic Acid 500 Mg Chewable Tablet PO 1,000 mg DAILY GHADA Administration Aspirin 81 mg 09/07/20 09:00 09/12/20 09:16 Aspirin 81 Mg Enteric Coated Tablet PO 81 mg DAILY GHADA Administration Cholecalciferol 2,000 units 09/07/20 09:00 09/12/20 09:14 Cholecalciferol 1,000 Units (25 Mcg) Tab PO 2,000 units DAILY GHADA Administration Donepezil HCl 10 mg 09/06/20 21:00 09/11/20 21:15 Donepezil Hcl 10 Mg Tab PO 10 mg HS GHADA Administration Famotidine 20 mg 09/06/20 21:00 09/12/20 09:17 Famotidine 20 Mg Tab PO 20 mg BID GHADA Administration Hydrochlorothiazide 25 mg 09/07/20 09:00 09/12/20 09:16 Hydrochlorothiazide 25 Mg Tab PO 25 mg DAILY GHADA Administration Cefepime HCl 1 gm/ Sodium 100 mls @ 200 mls/hr 09/06/20 21:00 09/12/20 09:18 Chloride IVPB 100 mls Q12HR GHADA Administration Levothyroxine Sodium 125 mcg 09/08/20 06:00 09/12/20 05:36 Levothyroxine Sodium 125 Mcg Tab PO 125 mcg 0600 GHADA Administration Melatonin 3 mg 09/09/20 19:56 09/09/20 20:33 Melatonin 3 Mg Tab PO 3 mg HS PRN Administration Insomnia Memantine 10 mg 09/06/20 21:00 09/12/20 09:17 Memantine Hcl 10 Mg Tab PO 10 mg BID GHADA Administration Metoprolol Succinate 75 mg 09/07/20 09:00 09/12/20 09:17 Metoprolol Succinate Xl 50 Mg Tab PO 75 mg DAILY GHADA Administration Olanzapine 2.5 mg 09/06/20 21:00 09/12/20 09:14 Olanzapine 2.5 Mg Tab PO 2.5 mg BID GHADA Administration Olanzapine 10 mg 09/06/20 21:00 09/11/20 21:36 Olanzapine 5 Mg Tab PO 10 mg HS GHADA Administration Temazepam 30 mg 09/06/20 21:00 09/11/20 21:16 Temazepam 15 Mg Cap PO 30 mg HS GHADA Administration Zinc Sulfate 220 mg 09/07/20 09:00 09/12/20 09:14 Zinc Sulfate 220 Mg Cap PO 220 mg DAILY GHADA Administration - Exam General Appearance: NAD, awake alert Eye: PERRL, anicteric sclera ENT: normocephalic atraumatic, no oropharyngeal lesions Neck: supple, symmetric, no JVD, no thyromegaly, no lymphadenopathy Heart: RRR, no gallops, no rubs, normal peripheral pulses Heart - other findings: S1, S2 Respiratory: CTAB, no wheezes, no rales, no ronchi, normal chest expansion Gastrointestinal: soft, non-tender, non-distended, normal bowel sounds, no palpable masses Extremities: no cyanosis, no clubbing, no edema Skin: normal turgor, no lesions Neurological: cranial nerve grossly intact, no new deficit Musculoskeletal: normal tone, generalized weakness Psychiatric: oriented to person, flat affect Hosp A/P (1) COVID-19 Code(s): U07.1 - COVID-19 Status: Acute Plan: s/p Remdesivir, continue Eliquis/Vit C/Zinc (2) Diarrhea Code(s): R19.7 - DIARRHEA, UNSPECIFIED Status: Acute Qualifiers: Diarrhea type: unspecified type Qualified Code(s): R19.7 - Diarrhea, unspecified Plan: Resolving (3) Sepsis Code(s): A41.9 - SEPSIS, UNSPECIFIED ORGANISM Status: Acute Qualifiers: Sepsis type: sepsis due to unspecified organism Plan: Resolved (4) Acute encephalopathy Code(s): G93.40 - ENCEPHALOPATHY, UNSPECIFIED Status: Acute Plan: Likely multifactorial with component of advanced dementia (5) Dementia Code(s): F03.90 - UNSPECIFIED DEMENTIA WITHOUT BEHAVIORAL DISTURBANCE Status: Acute Qualifiers: Dementia type: unspecified type Dementia behavioral disturbance: without behavioral disturbance Qualified Code(s): F03.90 - Unspecified dementia without behavioral disturbance (6) Hypothyroidism Code(s): E03.9 - HYPOTHYROIDISM, UNSPECIFIED Status: Chronic Qualifiers: Hypothyroidism type: unspecified Qualified Code(s): E03.9 - Hypothyroidism, unspecified Plan: Continue Levothyroxine - Plan 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
[2020-09-12] MEDS: Temazepam 15 MG CAP PO SCH (23:01)
[2020-09-12] MEDS: Donepezil HCl 10 MG TAB PO SCH (23:02)
[2020-09-12] MEDS: OLANZapine 5 MG TAB PO SCH (23:04)
[2020-09-13] MEDS: Levothyroxine Sodium 125 MCG TAB PO SCH (06:44)
[2020-09-13] MEDS: Ascorbic Acid 500 mg Chewable Tablet PO SCH (09:48)
[2020-09-13] MEDS: Famotidine 20 MG TAB PO SCH ×2 (09:48→23:50)
[2020-09-13] MEDS: Hydrochlorothiazide 25 MG TAB PO SCH (09:48)
[2020-09-13] MEDS: Apixaban 5 MG TAB PO SCH ×2 (09:48→23:50)
[2020-09-13] MEDS: Cholecalciferol 1,000 UNITS (25 MCG) TAB PO SCH (09:49)
[2020-09-13] MEDS: Zinc Sulfate 220 MG CAP PO SCH (09:49)
[2020-09-13] MEDS: Aspirin 81 mg Enteric Coated Tablet PO SCH (09:50)
[2020-09-13] MEDS: OLANZapine 2.5 MG TAB PO SCH ×2 (09:53→23:50)
--- NOTE | 2020-09-13 12:14 | PDOC.HOSPP ---
- Subjective Encounter Date: 09/13/20 Encounter Time: 11:00 Subjective: f/u for COVID infection but no respiratory compromise receiving previous Remdesivir/Cefepime now on Eliquis. Wandering in halls per nursing and required wrist restraints given COVID infection. - Objective Vital Signs & Weight: Vital Signs (12 hours) Temp Pulse Resp BP Pulse Ox 09/13/20 08:00 97.8 F 75 18 110/67 96 Weight Admit Weight 138 lb Weight 138 lb I&O: 09/12/20 09/13/20 09/14/20 06:59 06:59 06:59 Intake Total 1750 Output Total 1500 Balance 250 Result Diagrams: 09/08/20 05:58 09/08/20 05:58 Additional Labs: Microbiology 09/06/20 10:37 Venous blood - Right Hand Blood Culture - Preliminary NO GROWTH AT 48 HOURS 09/06/20 10:27 Venous blood - Left Hand Blood Culture - Preliminary NO GROWTH AT 48 HOURS Laboratory Tests 09/06/20 09/06/20 09/07/20 10:00 10:37 06:07 Sodium 132 L Potassium 3.7 3.4 L TSH 3rd Generation SARS-CoV-2 Rap RNA(RT-PCR) DETECTED A* 09/07/20 06:07 Sodium Potassium TSH 3rd Generation 19.3184 H SARS-CoV-2 Rap RNA(RT-PCR) Hospitalist ROS - Medication Medications: Active Medications Generic Name Dose Route Start Last Admin Trade Name Freq PRN Reason Stop Dose Admin Acetaminophen 650 mg 09/06/20 15:51 09/12/20 11:30 Acetaminophen 325 Mg Tab PO 650 mg Q4H PRN Administration Headache/Fever/Mild Pain (1-3) Apixaban 5 mg 09/06/20 21:00 09/13/20 09:48 Apixaban 5 Mg Tab PO 5 mg BID GHADA Administration Ascorbic Acid 1,000 mg 09/07/20 09:00 09/13/20 09:48 Ascorbic Acid 500 Mg Chewable Tablet PO 1,000 mg DAILY GHADA Administration Aspirin 81 mg 09/07/20 09:00 09/13/20 09:50 Aspirin 81 Mg Enteric Coated Tablet PO 81 mg DAILY GHADA Administration Cholecalciferol 2,000 units 09/07/20 09:00 09/13/20 09:49 Cholecalciferol 1,000 Units (25 Mcg) Tab PO 2,000 units DAILY GHADA Administration Donepezil HCl 10 mg 09/06/20 21:00 09/12/20 23:02 Donepezil Hcl 10 Mg Tab PO 10 mg HS GHADA Administration Famotidine 20 mg 09/06/20 21:00 09/13/20 09:48 Famotidine 20 Mg Tab PO 20 mg BID GHADA Administration Hydrochlorothiazide 25 mg 09/07/20 09:00 09/13/20 09:48 Hydrochlorothiazide 25 Mg Tab PO 25 mg DAILY GHADA Administration Levothyroxine Sodium 125 mcg 09/08/20 06:00 09/13/20 06:44 Levothyroxine Sodium 125 Mcg Tab PO 125 mcg 0600 GHADA Administration Melatonin 3 mg 09/09/20 19:56 09/09/20 20:33 Melatonin 3 Mg Tab PO 3 mg HS PRN Administration Insomnia Memantine 10 mg 09/06/20 21:00 09/13/20 09:48 Memantine Hcl 10 Mg Tab PO 10 mg BID GHADA Administration Metoprolol Succinate 75 mg 09/07/20 09:00 09/13/20 09:49 Metoprolol Succinate Xl 50 Mg Tab PO 75 mg DAILY GHADA Administration Olanzapine 2.5 mg 09/06/20 21:00 09/13/20 09:53 Olanzapine 2.5 Mg Tab PO 2.5 mg BID GHADA Administration Olanzapine 10 mg 09/06/20 21:00 09/12/20 23:04 Olanzapine 5 Mg Tab PO 10 mg HS GHADA Administration Temazepam 30 mg 09/06/20 21:00 09/12/20 23:01 Temazepam 15 Mg Cap PO 30 mg HS GHADA Administration Zinc Sulfate 220 mg 09/07/20 09:00 09/13/20 09:49 Zinc Sulfate 220 Mg Cap PO 220 mg DAILY GHADA Administration - Exam General Appearance: NAD, awake alert Eye: PERRL, anicteric sclera ENT: normocephalic atraumatic, no oropharyngeal lesions Neck: supple, symmetric, no JVD, no thyromegaly, no lymphadenopathy Heart: RRR, no gallops, no rubs, normal peripheral pulses Heart - other findings: S1, S2 Respiratory: CTAB, no wheezes, no rales, no ronchi, normal chest expansion Gastrointestinal: soft, non-tender, non-distended, normal bowel sounds, no palpa ble masses Extremities: no cyanosis, no clubbing, no edema Skin: normal turgor, no lesions Neurological: cranial nerve grossly intact, no new deficit Musculoskeletal: normal tone, no muscle wasting Psychiatric: oriented to person, flat affect Hosp A/P (1) COVID-19 Code(s): U07.1 - COVID-19 Status: Acute Plan: s/p Dexamethasone/Remdesivir/Cefepime, continue Eliquis/Vit C/Zinc, no respiratory compromise (2) Diarrhea Code(s): R19.7 - DIARRHEA, UNSPECIFIED Status: Acute Qualifiers: Diarrhea type: unspecified type Qualified Code(s): R19.7 - Diarrhea, unspecified Plan: resolving (3) Sepsis Code(s): A41.9 - SEPSIS, UNSPECIFIED ORGANISM Status: Acute Qualifiers: Sepsis type: sepsis due to unspecified organism Plan: Resolved (4) Acute encephalopathy Code(s): G93.40 - ENCEPHALOPATHY, UNSPECIFIED Status: Acute (5) Dementia Code(s): F03.90 - UNSPECIFIED DEMENTIA WITHOUT BEHAVIORAL DISTURBANCE Status: Acute Qualifiers: Dementia type: unspecified type Dementia behavioral disturbance: without behavioral disturbance Qualified Code(s): F03.90 - Unspecified dementia without behavioral disturbance Plan: Advanced, supportive mgmt, re-orientation techniques (6) Hypothyroidism Code(s): E03.9 - HYPOTHYROIDISM, UNSPECIFIED Status: Chronic Qualifiers: Hypothyroidism type: unspecified Qualified Code(s): E03.9 - Hypothyroidism, unspecified - 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
[2020-09-13] MEDS ORDERED: Ziprasidone 20 MG CAP PO SCH (17:30)
[2020-09-13] MEDS: OLANZapine 5 MG TAB PO SCH (23:49)
[2020-09-13] MEDS: Donepezil HCl 10 MG TAB PO SCH (23:50)
[2020-09-14] MEDS: Temazepam 15 MG CAP PO SCH ×2 (00:40→20:01)
[2020-09-14] MEDS: Levothyroxine Sodium 125 MCG TAB PO SCH (07:25)
[2020-09-14] MEDS: Ascorbic Acid 500 mg Chewable Tablet PO SCH (08:47)
[2020-09-14] MEDS: Aspirin 81 mg Enteric Coated Tablet PO SCH (08:48)
[2020-09-14] MEDS: Hydrochlorothiazide 25 MG TAB PO SCH (08:48)
[2020-09-14] MEDS: Cholecalciferol 1,000 UNITS (25 MCG) TAB PO SCH (08:48)
[2020-09-14] MEDS: Famotidine 20 MG TAB PO SCH ×2 (08:48→20:01)
[2020-09-14] MEDS: Apixaban 5 MG TAB PO SCH ×2 (08:48→20:01)
[2020-09-14] MEDS: OLANZapine 2.5 MG TAB PO SCH ×2 (08:49→20:01)
[2020-09-14] MEDS: Zinc Sulfate 220 MG CAP PO SCH (08:49)
[2020-09-14] MEDS: Ziprasidone 20 MG CAP PO SCH (08:49)
[2020-09-14 10:01] LABS: Thyroid Stimulating Hormone 18.9977 uIU/mL (0.35-4.94)
[2020-09-14 10:06] LABS: Free T4 (Free Thyroxine) 0.9 ng/dL (0.70-1.48)
--- NOTE | 2020-09-14 13:11 | PDOC.HOSPP ---
- Subjective Encounter Date: 09/14/20 Encounter Time: 09:50 Subjective: She is confused and talking nonstop. Very tangential talk not able to comprehend anything. She is on restraints and that has been renewed today.sats are better 96% in the room air. Afebrile. - Objective Vital Signs & Weight: Vital Signs (12 hours) Temp Pulse Resp BP Pulse Ox 09/14/20 09:30 97.3 F L 70 16 120/80 96 09/14/20 08:47 96 Weight Admit Weight 138 lb Weight 138 lb I&O: 09/13/20 09/14/20 09/15/20 06:59 06:59 06:59 Intake Total 400 Balance 400 Result Diagrams: 09/08/20 05:58 09/08/20 05:58 Hospitalist ROS - Medication Medications: Active Medications Generic Name Dose Route Start Last Admin Trade Name Freq PRN Reason Stop Dose Admin Acetaminophen 650 mg 09/06/20 15:51 09/12/20 11:30 Acetaminophen 325 Mg Tab PO 650 mg Q4H PRN Administration Headache/Fever/Mild Pain (1-3) Apixaban 5 mg 09/06/20 21:00 09/14/20 08:48 Apixaban 5 Mg Tab PO 5 mg BID GHADA Administration Ascorbic Acid 1,000 mg 09/07/20 09:00 09/14/20 08:47 Ascorbic Acid 500 Mg Chewable Tablet PO 1,000 mg DAILY GHADA Administration Aspirin 81 mg 09/07/20 09:00 09/14/20 08:48 Aspirin 81 Mg Enteric Coated Tablet PO 81 mg DAILY GHADA Administration Cholecalciferol 2,000 units 09/07/20 09:00 09/14/20 08:48 Cholecalciferol 1,000 Units (25 Mcg) Tab PO 2,000 units DAILY GHADA Administration Donepezil HCl 10 mg 09/06/20 21:00 09/13/20 23:50 Donepezil Hcl 10 Mg Tab PO 10 mg HS GHADA Administration Famotidine 20 mg 09/06/20 21:00 09/14/20 08:48 Famotidine 20 Mg Tab PO 20 mg BID GHADA Administration Hydrochlorothiazide 25 mg 09/07/20 09:00 09/14/20 08:48 Hydrochlorothiazide 25 Mg Tab PO 25 mg DAILY GHADA Administration Levothyroxine Sodium 125 mcg 09/08/20 06:00 09/14/20 07:25 Levothyroxine Sodium 125 Mcg Tab PO 125 mcg 0600 GHADA Administration Melatonin 3 mg 09/09/20 19:56 09/09/20 20:33 Melatonin 3 Mg Tab PO 3 mg HS PRN Administration Insomnia Memantine 10 mg 09/06/20 21:00 09/14/20 08:48 Memantine Hcl 10 Mg Tab PO 10 mg BID GHADA Administration Metoprolol Succinate 75 mg 09/07/20 09:00 09/14/20 08:52 Metoprolol Succinate Xl 50 Mg Tab PO 75 mg DAILY GHADA Administration Olanzapine 2.5 mg 09/06/20 21:00 09/14/20 08:49 Olanzapine 2.5 Mg Tab PO 2.5 mg BID GHADA Administration Olanzapine 10 mg 09/06/20 21:00 09/13/20 23:49 Olanzapine 5 Mg Tab PO 10 mg HS GHADA Administration Temazepam 30 mg 09/06/20 21:00 09/14/20 00:40 Temazepam 15 Mg Cap PO 30 mg HS GHADA Administration Zinc Sulfate 220 mg 09/07/20 09:00 09/14/20 08:49 Zinc Sulfate 220 Mg Cap PO 220 mg DAILY GHADA Administration Ziprasidone 40 mg 09/14/20 08:00 09/14/20 08:49 Ziprasidone 20 Mg Cap PO 40 mg QAM-WM GHADA Administration - Exam General Appearance: NAD, awake alert General - other findings: Disoriented Eye: PERRL ENT: normocephalic atraumatic Neck: supple Neurological: no focal deficits Psychiatric: not oriented Hosp A/P - Plan (1) COVID-19 Code(s): U07.1 - COVID-19 Status: Acute Plan: s/p Dexamethasone/Remdesivir/Cefepime, continue Eliquis/Vit C/Zinc, no respiratory compromise (2) Diarrhea Resolved (3) Sepsis Code(s): A41.9 - SEPSIS, UNSPECIFIED ORGANISM Status: Acute Qualifiers: Sepsis type: sepsis due to unspecified organism Plan: Resolved (4) Acute encephalopathy Code(s): G93.40 - ENCEPHALOPATHY, UNSPECIFIED Status: Acute (5) Dementia Code(s): F03.90 - UNSPECIFIED DEMENTIA WITHOUT BEHAVIORAL DISTURBANCE Status: Acute Qualifiers: Dementia type: unspecified type Dementia behavioral disturbance: without behavioral disturbance Qualified Code(s): F03.90 - Unspecified dementia without behavioral disturbance Plan: Advanced, supportive mgmt, re-orientation techniques (6) Hypothyroidism Code(s): E03.9 - HYPOTHYROIDISM, UNSPECIFIED Status: Chronic Qualifiers: Hypothyroidism type: unspecified Qualified Code(s): E03.9 - Hypothyroidism, unspecified Status post cefepime dexamethasone and remdesivir Continue Eliquis O2 PRN--sats are better 96% in the room air. Soft wrist restraints PRN for safety Continue isolation protocol CM for SNF/NH options
--- NOTE | 2020-09-14 16:39 | EKG ---
Test Reason : Blood Pressure : / mmHG Vent. Rate : 072 BPM Atrial Rate : 083 BPM P-R Int : 000 ms QRS Dur : 166 ms QT Int : 480 ms P-R-T Axes : 000 -76 084 degrees QTc Int : 525 ms Electronic ventricular pacemaker Confirmed by NU MERAZ MD [id number]), news editor LANCE LARA ([id number]) on 09/14/2020 4:39:44 PM Referred By: Confirmed By:NU MERAZ MD
[2020-09-14] MEDS: OLANZapine 5 MG TAB PO SCH (20:01)
[2020-09-14] MEDS: Donepezil HCl 10 MG TAB PO SCH (20:01)
[2020-09-14] MEDS: Acetaminophen 325 MG TAB PO PRN (21:27)
[2020-09-15] MEDS: Levothyroxine Sodium 125 MCG TAB PO SCH (05:26)
[2020-09-15] MEDS: Famotidine 20 MG TAB PO SCH ×2 (09:07→20:10)
[2020-09-15] MEDS: Ziprasidone 20 MG CAP PO SCH (09:07)
[2020-09-15] MEDS: Ascorbic Acid 500 mg Chewable Tablet PO SCH (09:07)
[2020-09-15] MEDS: Cholecalciferol 1,000 UNITS (25 MCG) TAB PO SCH (09:07)
[2020-09-15] MEDS: Apixaban 5 MG TAB PO SCH ×2 (09:08→20:11)
[2020-09-15] MEDS: OLANZapine 2.5 MG TAB PO SCH ×2 (09:08→20:10)
[2020-09-15] MEDS: Hydrochlorothiazide 25 MG TAB PO SCH (09:08)
[2020-09-15] MEDS: Aspirin 81 mg Enteric Coated Tablet PO SCH (09:08)
[2020-09-15] MEDS: Zinc Sulfate 220 MG CAP PO SCH (09:08)
--- NOTE | 2020-09-15 13:00 | PDOC.HOSPP ---
- Subjective Encounter Date: 09/15/20 Encounter Time: 09:50 Subjective: Patient is resting. She is talking on her own again. Not able to communicate meaningfully with the patient. Requires ongoing restraint renewal. Sats good at 97% in room air. Blood pressure is on the low side of normal. - Objective Vital Signs & Weight: Vital Signs (12 hours) Temp Pulse Resp BP Pulse Ox 09/15/20 09:26 97.9 F 69 16 98/65 97 09/15/20 09:08 97 Weight Admit Weight 138 lb Weight 138 lb I&O: 09/14/20 09/15/20 09/16/20 06:59 06:59 06:59 Intake Total 760 Balance 760 Result Diagrams: 09/08/20 05:58 09/08/20 05:58 Hospitalist ROS - Medication Medications: Active Medications Generic Name Dose Route Start Last Admin Trade Name Freq PRN Reason Stop Dose Admin Acetaminophen 650 mg 09/06/20 15:51 09/14/20 21:27 Acetaminophen 325 Mg Tab PO 650 mg Q4H PRN Administration Headache/Fever/Mild Pain (1-3) Apixaban 5 mg 09/06/20 21:00 09/15/20 09:08 Apixaban 5 Mg Tab PO 5 mg BID GHADA Administration Ascorbic Acid 1,000 mg 09/07/20 09:00 09/15/20 09:07 Ascorbic Acid 500 Mg Chewable Tablet PO 1,000 mg DAILY GHADA Administration Aspirin 81 mg 09/07/20 09:00 09/15/20 09:08 Aspirin 81 Mg Enteric Coated Tablet PO 81 mg DAILY GHADA Administration Cholecalciferol 2,000 units 09/07/20 09:00 09/15/20 09:07 Cholecalciferol 1,000 Units (25 Mcg) Tab PO 2,000 units DAILY GHADA Administration Donepezil HCl 10 mg 09/06/20 21:00 09/14/20 20:01 Donepezil Hcl 10 Mg Tab PO 10 mg HS GHADA Administration Famotidine 20 mg 09/06/20 21:00 09/15/20 09:07 Famotidine 20 Mg Tab PO 20 mg BID GHADA Administration Hydrochlorothiazide 25 mg 09/07/20 09:00 09/15/20 09:08 Hydrochlorothiazide 25 Mg Tab PO 25 mg DAILY GHADA Administration Levothyroxine Sodium 125 mcg 09/08/20 06:00 09/15/20 05:26 Levothyroxine Sodium 125 Mcg Tab PO 125 mcg 0600 GHADA Administration Melatonin 3 mg 09/09/20 19:56 09/09/20 20:33 Melatonin 3 Mg Tab PO 3 mg HS PRN Administration Insomnia Memantine 10 mg 09/06/20 21:00 09/15/20 09:08 Memantine Hcl 10 Mg Tab PO 10 mg BID GHADA Administration Metoprolol Succinate 75 mg 09/07/20 09:00 09/15/20 09:28 Metoprolol Succinate Xl 50 Mg Tab PO Not Given DAILY GHADA Olanzapine 2.5 mg 09/06/20 21:00 09/15/20 09:08 Olanzapine 2.5 Mg Tab PO 2.5 mg BID GHADA Administration Olanzapine 10 mg 09/06/20 21:00 09/14/20 20:01 Olanzapine 5 Mg Tab PO 10 mg HS GHADA Administration Temazepam 30 mg 09/06/20 21:00 09/14/20 20:01 Temazepam 15 Mg Cap PO 30 mg HS GHADA Administration Zinc Sulfate 220 mg 09/07/20 09:00 09/15/20 09:08 Zinc Sulfate 220 Mg Cap PO 220 mg DAILY GHADA Administration Ziprasidone 40 mg 09/14/20 08:00 09/15/20 09:07 Ziprasidone 20 Mg Cap PO 40 mg QAM-WM GHADA Administration - Exam General Appearance: NAD General - other findings: Confused; tangential Eye: PERRL ENT: normocephalic atraumatic Neck: supple Heart: RRR Respiratory: CTAB, normal chest expansion Neurological: no focal deficits Psychiatric: not oriented Hosp A/P - Plan (1) COVID-19 Code(s): U07.1 - COVID-19 Status: Acute Plan: s/p Dexamethasone/Remdesivir/Cefepime, continue Eliquis/Vit C/Zinc, no respiratory compromise (2) Diarrhea Resolved (3) Sepsis Code(s): A41.9 - SEPSIS, UNSPECIFIED ORGANISM Status: Acute Qualifiers: Sepsis type: sepsis due to unspecified organism Plan: Resolved (4) Acute encephalopathy Code(s): G93.40 - ENCEPHALOPATHY, UNSPECIFIED Status: Acute (5) Dementia Code(s): F03.90 - UNSPECIFIED DEMENTIA WITHOUT BEHAVIORAL DISTURBANCE Status: Acute Qualifiers: Dementia type: unspecified type Dementia behavioral disturbance: without behavioral disturbance Qualified Code(s): F03.90 - Unspecified dementia without behavioral disturbance Plan: Advanced, supportive mgmt, re-orientation techniques (6) Hypothyroidism Code(s): E03.9 - HYPOTHYROIDISM, UNSPECIFIED Status: Chronic Qualifiers: Hypothyroidism type: unspecified Qualified Code(s): E03.9 - Hypothyroidism, unspecified Status post cefepime dexamethasone and remdesivir Continue Eliquis O2 PRN--sats are better 96% in the room air. Soft wrist restraints PRN for safety Continue isolation protocol CM for SNF/NH options
[2020-09-15] MEDS: OLANZapine 5 MG TAB PO SCH (20:10)
[2020-09-15] MEDS: Donepezil HCl 10 MG TAB PO SCH (20:11)
[2020-09-15] MEDS: Temazepam 15 MG CAP PO SCH (20:11)
[2020-09-16] MEDS: Levothyroxine Sodium 125 MCG TAB PO SCH (05:12)
[2020-09-16] MEDS: Apixaban 5 MG TAB PO SCH ×2 (08:59→22:10)
[2020-09-16] MEDS: Ziprasidone 20 MG CAP PO SCH (08:59)
[2020-09-16] MEDS: Ascorbic Acid 500 mg Chewable Tablet PO SCH (08:59)
[2020-09-16] MEDS: Cholecalciferol 1,000 UNITS (25 MCG) TAB PO SCH (08:59)
[2020-09-16] MEDS: Hydrochlorothiazide 25 MG TAB PO SCH (09:00)
[2020-09-16] MEDS: OLANZapine 2.5 MG TAB PO SCH ×2 (09:00→22:11)
[2020-09-16] MEDS: Famotidine 20 MG TAB PO SCH ×2 (09:00→22:10)
[2020-09-16] MEDS: Aspirin 81 mg Enteric Coated Tablet PO SCH (09:00)
[2020-09-16] MEDS: Zinc Sulfate 220 MG CAP PO SCH (11:21)
--- NOTE | 2020-09-16 11:35 | PDOC.HOSPP ---
- Subjective Encounter Date: 09/16/20 Encounter Time: 11:33 Subjective: no appropriate responce, confused due to chronic dementia - Objective Vital Signs & Weight: Vital Signs (12 hours) Temp Pulse Resp BP Pulse Ox 09/16/20 08:31 97 09/16/20 08:00 97.9 F 69 16 105/68 97 Weight Admit Weight 138 lb Weight 138 lb I&O: 09/15/20 09/16/20 09/17/20 06:59 06:59 06:59 Intake Total 760 490 Balance 760 490 Result Diagrams: 09/08/20 05:58 09/08/20 05:58 Hospitalist ROS - Medication Medications: Active Medications Generic Name Dose Route Start Last Admin Trade Name Freq PRN Reason Stop Dose Admin Acetaminophen 650 mg 09/06/20 15:51 09/14/20 21:27 Acetaminophen 325 Mg Tab PO 650 mg Q4H PRN Administration Headache/Fever/Mild Pain (1-3) Apixaban 5 mg 09/06/20 21:00 09/16/20 08:59 Apixaban 5 Mg Tab PO 5 mg BID GHADA Administration Ascorbic Acid 1,000 mg 09/07/20 09:00 09/16/20 08:59 Ascorbic Acid 500 Mg Chewable Tablet PO 1,000 mg DAILY GHADA Administration Aspirin 81 mg 09/07/20 09:00 09/16/20 09:00 Aspirin 81 Mg Enteric Coated Tablet PO 81 mg DAILY GHADA Administration Cholecalciferol 2,000 units 09/07/20 09:00 09/16/20 08:59 Cholecalciferol 1,000 Units (25 Mcg) Tab PO 2,000 units DAILY GHADA Administration Donepezil HCl 10 mg 09/06/20 21:00 09/15/20 20:11 Donepezil Hcl 10 Mg Tab PO 10 mg HS GHADA Administration Famotidine 20 mg 09/06/20 21:00 09/16/20 09:00 Famotidine 20 Mg Tab PO 20 mg BID GHADA Administration Hydrochlorothiazide 25 mg 09/07/20 09:00 09/16/20 09:00 Hydrochlorothiazide 25 Mg Tab PO 25 mg DAILY GHADA Administration Levothyroxine Sodium 125 mcg 09/08/20 06:00 09/16/20 05:12 Levothyroxine Sodium 125 Mcg Tab PO 125 mcg 0600 GHADA Administration Melatonin 3 mg 09/09/20 19:56 09/09/20 20:33 Melatonin 3 Mg Tab PO 3 mg HS PRN Administration Insomnia Memantine 10 mg 09/06/20 21:00 09/16/20 09:00 Memantine Hcl 10 Mg Tab PO 10 mg BID GHADA Administration Metoprolol Succinate 75 mg 09/07/20 09:00 09/16/20 09:00 Metoprolol Succinate Xl 50 Mg Tab PO 75 mg DAILY GHADA Administration Olanzapine 2.5 mg 09/06/20 21:00 09/16/20 09:00 Olanzapine 2.5 Mg Tab PO 2.5 mg BID GHADA Administration Olanzapine 10 mg 09/06/20 21:00 09/15/20 20:10 Olanzapine 5 Mg Tab PO 10 mg HS GHADA Administration Temazepam 30 mg 09/06/20 21:00 09/15/20 20:11 Temazepam 15 Mg Cap PO 30 mg HS GHADA Administration Zinc Sulfate 220 mg 09/07/20 09:00 09/16/20 11:21 Zinc Sulfate 220 Mg Cap PO 220 mg DAILY GHADA Administration Ziprasidone 40 mg 09/14/20 08:00 09/16/20 08:59 Ziprasidone 20 Mg Cap PO 40 mg QAM-WM GHADA Administration - Exam General Appearance: awake alert Neck: no JVD Heart: RRR, no murmur Respiratory: CTAB Gastrointestinal: soft, normal bowel sounds Extremities: no edema Hosp A/P (1) COVID-19 Code(s): U07.1 - COVID-19 Status: Acute (2) Dementia Code(s): F03.90 - UNSPECIFIED DEMENTIA WITHOUT BEHAVIORAL DISTURBANCE Status: Acute Qualifiers: Dementia type: unspecified type Dementia behavioral disturbance: without behavioral disturbance Qualified Code(s): F03.90 - Unspecified dementia without behavioral disturbance (3) HTN (hypertension) Code(s): I10 - ESSENTIAL (PRIMARY) HYPERTENSION Status: Chronic Qualifiers: Hypertension type: essential hypertension Qualified Code(s): I10 - Essential (primary) hypertension (4) Hypothyroidism Code(s): E03.9 - HYPOTHYROIDISM, UNSPECIFIED Status: Chronic Qualifiers: Hypothyroidism type: unspecified Qualified Code(s): E03.9 - Hypothyroidism, unspecified (5) Atrial fibrillation Code(s): I48.91 - UNSPECIFIED ATRIAL FIBRILLATION Status: Acute (6) Anticoagulant long-term use Code(s): 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
[2020-09-16] MEDS: Temazepam 15 MG CAP PO SCH (22:02)
[2020-09-16] MEDS: Donepezil HCl 10 MG TAB PO SCH (22:10)
[2020-09-16] MEDS: OLANZapine 5 MG TAB PO SCH (22:11)
[2020-09-16] MEDS: Melatonin 3 MG TAB PO PRN (22:11)
[2020-09-17] MEDS: Levothyroxine Sodium 125 MCG TAB PO SCH (06:23)
[2020-09-17] MEDS: Ziprasidone 20 MG CAP PO SCH (08:58)
[2020-09-17] MEDS: Cholecalciferol 1,000 UNITS (25 MCG) TAB PO SCH (08:58)
[2020-09-17] MEDS: Hydrochlorothiazide 25 MG TAB PO SCH (08:59)
[2020-09-17] MEDS: Ascorbic Acid 500 mg Chewable Tablet PO SCH (08:59)
[2020-09-17] MEDS: Apixaban 5 MG TAB PO SCH ×2 (09:00→20:55)
[2020-09-17] MEDS: Famotidine 20 MG TAB PO SCH ×2 (09:00→20:55)
[2020-09-17] MEDS: Aspirin 81 mg Enteric Coated Tablet PO SCH (09:00)
--- NOTE | 2020-09-17 10:30 | PDOC.HOSPP ---
- Subjective Encounter Date: 09/17/20 Encounter Time: 10:24 Subjective: no distress. severe dementia - Objective Vital Signs & Weight: Weight Admit Weight 138 lb Weight 138 lb I&O: 09/16/20 09/17/20 09/18/20 06:59 06:59 06:59 Intake Total 490 610 Balance 490 610 Result Diagrams: 09/08/20 05:58 09/08/20 05:58 Hospitalist ROS - Medication Medications: Active Medications Generic Name Dose Route Start Last Admin Trade Name Freq PRN Reason Stop Dose Admin Acetaminophen 650 mg 09/06/20 15:51 09/14/20 21:27 Acetaminophen 325 Mg Tab PO 650 mg Q4H PRN Administration Headache/Fever/Mild Pain (1-3) Apixaban 5 mg 09/06/20 21:00 09/17/20 09:00 Apixaban 5 Mg Tab PO 5 mg BID GHADA Administration Ascorbic Acid 1,000 mg 09/07/20 09:00 09/17/20 08:59 Ascorbic Acid 500 Mg Chewable Tablet PO 1,000 mg DAILY GHADA Administration Aspirin 81 mg 09/07/20 09:00 09/17/20 09:00 Aspirin 81 Mg Enteric Coated Tablet PO 81 mg DAILY GHADA Administration Cholecalciferol 2,000 units 09/07/20 09:00 09/17/20 08:58 Cholecalciferol 1,000 Units (25 Mcg) Tab PO 2,000 units DAILY GHADA Administration Donepezil HCl 10 mg 09/06/20 21:00 09/16/20 22:10 Donepezil Hcl 10 Mg Tab PO 10 mg HS GHADA Administration Famotidine 20 mg 09/06/20 21:00 09/17/20 09:00 Famotidine 20 Mg Tab PO 20 mg BID GHADA Administration Hydrochlorothiazide 25 mg 09/07/20 09:00 09/17/20 08:59 Hydrochlorothiazide 25 Mg Tab PO 25 mg DAILY GHADA Administration Levothyroxine Sodium 125 mcg 09/08/20 06:00 09/17/20 06:23 Levothyroxine Sodium 125 Mcg Tab PO 125 mcg 0600 GHADA Administration Melatonin 3 mg 09/09/20 19:56 09/16/20 22:11 Melatonin 3 Mg Tab PO 3 mg HS PRN Administration Insomnia Memantine 10 mg 09/06/20 21:00 09/17/20 08:59 Memantine Hcl 10 Mg Tab PO 10 mg BID GHADA Administration Metoprolol Succinate 75 mg 09/07/20 09:00 09/17/20 08:58 Metoprolol Succinate Xl 50 Mg Tab PO 75 mg DAILY GHADA Administration Olanzapine 2.5 mg 09/06/20 21:00 09/16/20 22:11 Olanzapine 2.5 Mg Tab PO 2.5 mg BID GHADA Administration Olanzapine 10 mg 09/06/20 21:00 09/16/20 22:11 Olanzapine 5 Mg Tab PO 10 mg HS GHADA Administration Zinc Sulfate 220 mg 09/07/20 09:00 09/16/20 11:21 Zinc Sulfate 220 Mg Cap PO 220 mg DAILY GHADA Administration Ziprasidone 40 mg 09/14/20 08:00 09/17/20 08:58 Ziprasidone 20 Mg Cap PO 40 mg QAM-WM GHADA Administration - Exam General Appearance: awake alert Neck: no JVD Heart: RRR, no murmur Respiratory - other findings: diffuse fine rales Gastrointestinal: soft, normal bowel sounds Extremities: no edema Hosp A/P (1) COVID-19 Code(s): U07.1 - COVID-19 Status: Acute (2) Dementia Code(s): F03.90 - UNSPECIFIED DEMENTIA WITHOUT BEHAVIORAL DISTURBANCE Status: Acute Qualifiers: Dementia type: unspecified type Dementia behavioral disturbance: without behavioral disturbance Qualified Code(s): F03.90 - Unspecified dementia without behavioral disturbance (3) HTN (hypertension) Code(s): I10 - ESSENTIAL (PRIMARY) HYPERTENSION Status: Chronic Qualifiers: Hypertension type: essential hypertension Qualified Code(s): I10 - Essential (primary) hypertension (4) Hypothyroidism Code(s): E03.9 - HYPOTHYROIDISM, UNSPECIFIED Status: Chronic Qualifiers: Hypothyroidism type: unspecified Qualified Code(s): E03.9 - Hypothyroidism, unspecified (5) Atrial fibrillation Code(s): I48.91 - UNSPECIFIED ATRIAL FIBRILLATION Status: Acute (6) Anticoagulant long-term use Code(s): 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
[2020-09-17] MEDS: Zinc Sulfate 220 MG CAP PO SCH (12:27)
[2020-09-17] MEDS: OLANZapine 2.5 MG TAB PO SCH ×2 (12:28→20:55)
[2020-09-17] MEDS: OLANZapine 5 MG TAB PO SCH (20:55)
[2020-09-17] MEDS: Donepezil HCl 10 MG TAB PO SCH (20:55)
[2020-09-17] MEDS: Acetaminophen 325 MG TAB PO PRN (21:09)
[2020-09-17] MEDS: Melatonin 3 MG TAB PO PRN (23:16)
[2020-09-18] MEDS: Levothyroxine Sodium 125 MCG TAB PO SCH (05:39)
[2020-09-18] MEDS: Ascorbic Acid 500 mg Chewable Tablet PO SCH (08:18)
[2020-09-18] MEDS: Aspirin 81 mg Enteric Coated Tablet PO SCH (08:19)
[2020-09-18] MEDS: Cholecalciferol 1,000 UNITS (25 MCG) TAB PO SCH (08:19)
[2020-09-18] MEDS: Famotidine 20 MG TAB PO SCH (08:19)
[2020-09-18] MEDS: Apixaban 5 MG TAB PO SCH (08:20)
[2020-09-18] MEDS: Zinc Sulfate 220 MG CAP PO SCH (08:20)
[2020-09-18] MEDS: OLANZapine 5 MG TAB PO SCH (08:20)
[2020-09-18] MEDS: Ziprasidone 20 MG CAP PO SCH (08:21)
[2020-09-18] MEDS: Hydrochlorothiazide 25 MG TAB PO SCH (08:28)
[2020-09-18] MEDS: OLANZapine 2.5 MG TAB PO SCH (08:54)
[2020-09-18 09:33] VITALS: TEMP 97.3
--- NOTE | 2020-09-18 10:49 | DIS ---
DATE OF ADMISSION: 09/07/2020 DATE OF DISCHARGE: 09/18/2020 PRIMARY CARE PROVIDER: Mihai Noyola MD DISPOSITION: Discharged back to [facility]. FINAL DIAGNOSES: COVID-19 infection, atrial fibrillation anticoagulant long-term use, dementia, hypertension, and hypothyroidism. DISCHARGE MEDICATIONS: 1. Metoprolol 75 mg a day. 2. Donepezil 10 mg a day. 3. Temazepam 1 p.o. at bedtime p.r.n. 4. Zyprexa 10 mg at bedtime and 2.5 mg twice a day. 5. Aspirin 81 mg a day. 6. Eliquis 5 mg twice a day. 7. Hydrochlorothiazide 25 mg a day. 8. Levothyroxine 25 mcg a day. 9. Memantine 10 mg p.o. b.i.d. ALLERGIES: ALLERGIC TO SULFA AND CAFFEINE. CODE STATUS: Full. PENDING AT TIME OF DISCHARGE: Nothing. DIET: Heart healthy. HOSPITAL COURSE: The patient admitted to [facility] through the Emergency Department. The patient presented with fever and diarrhea. The patient has dementia, unable to give a decent history, been present for several days. She was noted to be COVID positive. She was admitted. She received antibiotics and steroids in the ER. Pertinent laboratory; white count 5.5, hemoglobin 12.7, and platelet count 151,000. Sodium 132, potassium 3.7, CO2 of 22, BUN 11, and creatinine 0.65. A CT of the abdomen and pelvis was done, which revealed bibasilar ground glass densities suggestive of COVID-19. Consultations during hospital stay, none. On 09/07, she was lucid, although demented. Her status was that she did not need oxygen at that time. Her medications at that time included vitamin C, dexamethasone 6 mg IV, Lovenox, and her usual home medicines including metoprolol, levothyroxine, etc. On 09/09/2020, she was continued on dexamethasone, cefepime, Eliquis, and vancomycin. The enoxaparin was discontinued because of the Eliquis. Because of her dementia and wandering, she required a gentle restraint. Her TSH was elevated, but her T4 was normal. Liver function tests were normal. I do not see where markers such as ferritin and CRP were done. No D-dimer was done. Serology was positive for COVID. The patient remained stable during her hospital stay. She has finally reached a point, where she can be returned to her normal assisted living. She has not required oxygen. She has not been symptomatic since the first day here. No procedures were done. She needs followup with her primary care provider in 3 to 7 days. Job ID: [id number]
[2020-09-18 13:14] VITALS: BP 123/78
== END 2020-09-18 13:55 | DRG 871 ==
LOC: ERS 09:36 → T4-B 15:38 → OBSVTOIN 09-07 11:50
PROVIDERS: ADMIT Hospitalist; ATTEND Internal Medicine
PROC: 8E0ZXY6 Isolation (ICD-10-PCS; principal; 2020-09-07)
DX: A41.89 Other specified sepsis (principal); U07.1 COVID-19; J12.89 Other viral pneumonia; G93.49 Other encephalopathy; E03.9 Hypothyroidism, unspecified; I48.91 Unspecified atrial fibrillation; F03.90 Unspecified dementia, unspecified severity, without behavioral disturbance, psychotic disturbance, mood disturbance, and anxiety; I10 Essential (primary) hypertension; M19.90 Unspecified osteoarthritis, unspecified site; Z96.659 Presence of unspecified artificial knee joint; G89.29 Other chronic pain; M54.89 Other dorsalgia; I25.10 Atherosclerotic heart disease of native coronary artery without angina pectoris; Z78.1 Physical restraint status; Z28.21 Immunization not carried out because of patient refusal; Z79.01 Long term (current) use of anticoagulants; Z88.2 Allergy status to sulfonamides; Z91.018 Allergy to other foods; Z90.710 Acquired absence of both cervix and uterus; Z87.891 Personal history of nicotine dependence; Z95.0 Presence of cardiac pacemaker
CPT/HCPCS: 36415; 71045; 74177; 80048; 80053; 81001; 83605; 83690; 84439; 84443; 85025; 87040; 93005; 96365; 96366; 96367; 96375; G0378; J0692; J1100; J1956; J3370; J3490; Q9967; U0002

== ENCOUNTER 2020-09-30 16:03 | Inpatient (IN) | payer MEDICARE, OTHER ==
[~2020-09-30 16:03] MED LIST: Iopamidol-370 76% 500 ML 1 ML ONE
[2020-09-30 16:56] LABS: #Lymphocytes 1.4 thou/uL (1.20-3.40); #Neutrophils 12.6 thou/uL (1.40-6.50); %Basophils 0.1 % (0.0-1.0); %Eosinophils 0.3 % (0.0-10.0); %Lymphocytes 9.4 % (21.0-51.0); %Monocytes 6.6 % (0.0-10.0); %Neutrophils 83.7 % (42.0-75.0); Hemoglobin 10.3 g/dL (12.0-16.0); Mean Corpuscular HGB CONC 33.1 g/dL (32.0-36.0); Mean Corpuscular Volume 87.6 fL (78.0-98.0); Mean Platelet Volume 8.5 fL (7.4-10.4); Platelet Count 191 thou/uL (130-400); RBC Distribution Width 13.9 % (11.5-14.5); Red Blood Cell (RBC) Count 3.54 mill/uL (4.20-5.40)
[2020-09-30 17:05] LABS: INR-International Normal Ratio 2.1; PTT 39.2 sec (22.9-36.1)
[2020-09-30 17:22] LABS: ALT (SGPT) 14 U/L (8-55); AST (SGOT) 29 U/L (5-34); Alkaline Phosphatase 66 U/L (40-110); Anion Gap 12 mmol/L (10-20); BUN (Urea Nitrogen) 20 mg/dL (9.8-20.1); Bilirubin, Total 1.1 mg/dL (0.2-1.2); Calc. Creatinine Clearance 0 mL/min (70-130); Calcium 7.4 mg/dL (7.8-10.44); Carbon Dioxide 28 mmol/L (23-31); Chloride 103 mmol/L (98-107); Estimated GFR-MDRD 86; Globulin 2.8 g/dL (2.4-3.5); Glucose 96 mg/dL (83-110); Protein, Total 5.8 g/dL (6.0-8.3); Sodium 140 mmol/L (136-145)
[2020-09-30 17:25] LABS: Potassium 2.6 mmol/L (3.5-5.1)
[2020-09-30] MEDS ORDERED: Pantoprazole 40 MG VIAL ONE (18:14)
[2020-09-30] MEDS ORDERED: Magnesium 2 GM/50 ML BAG (IN WATER) ONE (18:14)
[2020-09-30] MEDS ORDERED: Potassium Chloride 20 MEQ TAB ONE (18:14)
--- NOTE | 2020-09-30 19:03 | CT ---
CT ABDOMEN WITH CONTRAST CT PELVIS WITH CONTRAST: DATE: 09-30-2020 TIME: 5:49 P.M. HISTORY: 80-year-old female with bloody stools, hypotension, and generalized abdominal pain. COMPARISON: 09-06-2020 TECHNIQUE: IV injection of iodinated contrast media: Administered Oral contrast media: Not administered FINDINGS: The previously demonstrated bibasilar pulmonary infiltrates have improved. Mild infiltrates remain, r ight greater than left. No pleural effusion, pneumoperitoneum or ascites. New finding of severe distention of the urinary bladder with dome of bladder reaching the L3-4 level, superior to the umbilicus. Normal, thin lópez of the urinary bladder. New finding of moderate dilation of bilateral ureters and bilateral renal collecting systems. 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 No evidence of pyelonephritis. No major pathology of liver, pancreas, or spleen. Normal air filled appendix. New finding of large amount of stool distending the rectum with AP and transverse dimensions of 7.1 x 6.8 cm. Mild perirectal fat stranding representing edema, including presacral space. Mild mural thic kening of rectum, 3 mm. IMPRESSION: 1. Bilateral moderate hydroureteronephrosis due to severely distended urinary bladder. Consider Franklin catheter placement. 2. Fecal rectal stool impaction with risk for stercoral proctitis. 3. Interval improvement, but not resolution of, bilateral pulmonary infiltrates consistent with improvement in pneumonia. SHAWNEE Pollard POS: DENNY
[2020-09-30 19:11] LABS: Bilirubin Negative (Negative); Blood, Urine Negative (Negative); Clarity Clear (Clear); Glucose, Urine (Dipstick) Normal (Negative); Ketone, Urine Negative (Negative); Leukocyte 250 Leu/uL (Negative); Nitrite Negative (Negative); Protein, Urine (Dipstick) Negative (Neg-Trace); Squamous Epithelial 0-3 HPF (0-3); WBC/HPF Greater than 50 HPF (0-3)
[2020-09-30 19:12] LABS: Magnesium 1.6 mg/dL (1.6-2.6); Phosphorus 2.6 mg/dL (2.3-4.7)
[2020-09-30 19:20] LABS: Bacteria/HPF 1+ HPF (None Seen)
[2020-09-30 19:21] LABS: Yeast-Budding 1+ HPF (None Seen); Yeast-Hyphae 1+ HPF (None Seen)
--- NOTE | 2020-09-30 20:41 | PDOC.HHP ---
Hospitalist HPI - History of Present Illness GI bleeding History of Present Illness: Patient is a 80-year-old female with dementia, atrial fibrillation on anticoagulation with recent COVID-19 infection presented to the emergency room by EMS with above complaints. Patient currently resides at a [facility]. Patient is a poor historian and most of the information was obtained from the ER chart. Over the last 3 days patient has blood in her stools. Today patient was found to have bright red diarrhea. Her mentation was also more altered than her usual. She was also found to have low blood pressure at the nursing facility. She received IV fluid bolus after which her blood pressure improved to 114/62 from 93/60. Her hemoglobin in the emergency room was 10.3. Recent hemoglobin 3 weeks ago was 13.6. She was also found to have potassium of 2.6 in the emergency room. PAST MEDICAL HISTORY: Paroxysmal atrial fibrillation on anticoagulation, advanced dementia, recent COVID-19 infection, hypertension, hypothyroidism, diverticulosis, degenerative joint disease, anxiety PAST SURGICAL HISTORY: Colonoscopy in 2013 showed diverticular disease, pacemaker placement, hysterectomy, total knee replacement ALLERGIES: Sulfa and caffeine HOME MEDICATIONS: Unable to Verify Due To Current Mentation SOCIAL HISTORY: Patient currently resides at nursing facility. She is a former smoker. Ambulates with the help of a cane/walker FAMILY HISTORY: Cannot be obtained from the patient due to current mentation ED Course: VITAL SIGNS WedSep 30, 2020 16:28 RENEE Hathaway Brandi BP: 94/55, MAP: 68, Pulse: 79, Resp: 16, Temp: 98.5 (Oral), Pain: 0, O2 sat: 100 on (Room Air), Time: 09/30/2020 16:28. Hospitalist ROS - Review of Systems ROS unobtainable: due to mental status Hospitalist History - Past Medical History Musculoskeletal: reports: Osteoarthritis Endocrine: reports: Hypothyroidism - Past Surgical History Past Surgical History: reports: Hysterectomy, Total Knee Replacement - Social History Alcohol: reports: None Drugs: reports: none - Exam General Appearance: ill appearing Eye: PERRL, anicteric sclera ENT: normocephalic atraumatic, dry oral mucosa Neck: supple, symmetric, no JVD, no thyromegaly Heart: RRR, no gallops, no rubs, normal peripheral pulses Respiratory: no wheezes, no rales, no ronchi, no tachypnea Gastrointestinal: soft, non-distended, normal bowel sounds, no guarding, no rigidity Gastrointestinal - other findings: Rectal exam in the ER showed heme positive stool per ER physician Extremities: no cyanosis, no clubbing Skin: normal turgor Neurological - other findings: Neuro/psych exam limited due to current mentation Hospitalist Results - Labs Result Diagrams: 09/30/20 16:41 09/30/20 16:41 Lab results: WBC 15.0 thou/uL (4.8-10.8) H 09/30/20 16:41 Hgb 10.3 g/dL (12.0-16.0) L 09/30/20 16:41 Hct 31.0 % (36.0-47.0) L 09/30/20 16:41 MCV 87.6 fL (78.0-98.0) 09/30/20 16:41 Plt Count 191 thou/uL (130-400) 09/30/20 16:41 Neutrophils % 83.7 % (42.0-75.0) H 09/30/20 16:41 Sodium 140 mmol/L (136-145) 09/30/20 16:41 Potassium 2.6 mmol/L (3.5-5.1) L* 09/30/20 16:41 Chloride 103 mmol/L (98-107) 09/30/20 16:41 Carbon Dioxide 28 mmol/L (23-31) 09/30/20 16:41 BUN 20 mg/dL (9.8-20.1) 09/30/20 16:41 Creatinine 0.66 mg/dL (0.6-1.1) 09/30/20 16:41 Glucose 96 mg/dL (83-110) 09/30/20 16:41 Calcium 7.4 mg/dL (7.8-10.44) L 09/30/20 16:41 Total Bilirubin 1.1 mg/dL (0.2-1.2) 09/30/20 16:41 AST 29 U/L (5-34) 09/30/20 16:41 ALT 14 U/L (8-55) 09/30/20 16:41 Alkaline Phosphatase 66 U/L (40-110) 09/30/20 16:41 Serum Total Protein 5.8 g/dL (6.0-8.3) L 09/30/20 16:41 Albumin 3.0 g/dL (3.4-4.8) L 09/30/20 16:41 Urine Ketones Negative mg/dL (Negative) 09/30/20 18:53 Urine Blood Negative (Negative) 09/30/20 18:53 Urine Nitrite Negative (Negative) 09/30/20 18:53 Ur Leukocyte Esterase 250 Ines/uL (Negative) A 09/30/20 18:53 Urine RBC 4-6 HPF (0-3) A 09/30/20 18:53 Urine WBC Greater than 50 HPF (0-3) A 09/30/20 18:53 Ur Squamous Epith Cells 0-3 HPF (0-3) 09/30/20 18:53 Urine Bacteria 1+ HPF (None Seen) A 09/30/20 18:53 - EKG Interpretation EKG: Paced rhythm reviewed by me - Radiology Interpretation CT scan - abdomen Status: image reviewed by me Additional Comment: FINDINGS: The previously demonstrated bibasilar pulmonary infiltrates have improved. Mild infiltrates remain, r ight greater than left. No pleural effusion, pneumoperitoneum or ascites. New finding of severe distention of the urinary bladder with dome of bladder reaching the L3-4 level, superior to the umbilicus. Normal, thin lópez of the urinary bladder. New finding of moderate dilation of bilateral ureters and bilateral renal collecting systems. 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 No evidence of pyelonephritis. No major pathology of liver, pancreas, or spleen. Normal air filled appendix. New finding of large amount of stool distending the rectum with AP and transverse dimensions of 7.1 x 6.8 cm. Mild perirectal fat stranding representing edema, including presacral space. Mild mural thic kening of rectum, 3 mm. IMPRESSION: 1. Bilateral moderate hydroureteronephrosis due to severely distended urinary bladder. Consider Franklin catheter placement. 2. Fecal rectal stool impaction with risk for stercoral proctitis. 3. Interval improvement, but not resolution of, bilateral pulmonary infiltrates consistent with improvement in pneumonia. Hospitalist H&P A/P - Plan Plan: Acute GI bleeding Acute blood loss anemia Urinary retention with bilateral moderate hydroureteronephrosis requiring Franklin catheter placement in the emergency room Stool impaction Hypokalemia Hypomagnesemia Toxic metabolic encephalopathy/sepsis due to UTI Recent COVID-19 infection CKD stage II Advanced dementia Hypertension Chronic atrial fibrillation on Eliquis Hypothyroidism Moderate protein calorie malnutrition Plan: Patient will be monitored in the telemetry unit due to abnormal electrolytes and hypotension. Patient will be kept n.p.o. Consult gastroenterology. Monitor H&H closely. Type and screen and transfuse if needed. IV PPIs. Start bowel regimen. Replace potassium and magnesium. Stool work-up. Empiric antibiotics for UTI. CT abdomen also showed bilateral moderate hydroureteronephrosis due to severely distended urinary bladder. Restart home medications once verified. Full code. DPKATELYN is her son
[2020-09-30] MEDS ORDERED: Electrolyte Replacement Protoc 1 EACH EACH IVPB PRN (20:44)
[2020-09-30] MEDS ORDERED: Magnesium Sulfate 4 GM in Sodium Chloride 0.9% 250 ML 250 ML IVPB SCH (20:45)
[2020-09-30] MEDS ORDERED: Acetaminophen 325 MG TAB PO PRN (21:11)
[2020-09-30] MEDS ORDERED: Calcium Carbonate 500 MG ChewTAB PO PRN (21:11)
[2020-09-30] MEDS ORDERED: Polyethylene Glycol 3350 17 GM Packet PO SCH (21:15)
[2020-09-30] MEDS ORDERED: Senokot S 8.6-50 MG TAB PO SCH (21:15)
[2020-09-30] MEDS: Pantoprazole 40 MG VIAL IVP SCH (23:28)
[2020-10-01] MEDS: cefTRIAXone\\ROCEPHIN 2 GM in Sodium Chloride 0.9% 100 ML IVPB SCH ×2 (00:05→21:04)
[2020-10-01] MEDS: D5 1/2 NS w/40 mEq KCL 1,000 ML IV SCH ×4 (01:53→21:03)
[2020-10-01] MEDS ORDERED: Sodium Chloride 0.9% 500 ML IVPB SCH (02:00)
[2020-10-01 02:28] VITALS: BMI 22.1
[2020-10-01 04:20] LABS: #Eosinphils 0.1 thou/uL (0.0-0.7); #Lymphocytes 1.5 thou/uL (1.20-3.40); #Monocytes 0.8 thou/uL (0.11-0.59); #Neutrophils 8.7 thou/uL (1.40-6.50); %Basophils 0.2 % (0.0-1.0); %Lymphocytes 13.7 % (21.0-51.0); %Monocytes 7.5 % (0.0-10.0); %Neutrophils 77.6 % (42.0-75.0); Mean Corpuscular HGB CONC 32.3 g/dL (32.0-36.0); Mean Corpuscular Hemoglobin 28.3 pg (27.0-31.0); Mean Corpuscular Volume 87.8 fL (78.0-98.0); Mean Platelet Volume 8.6 fL (7.4-10.4); Platelet Count 194 thou/uL (130-400); Red Blood Cell (RBC) Count 3.52 mill/uL (4.20-5.40); White Blood Cell (WBC) Count 11.2 thou/uL (4.8-10.8)
[2020-10-01 04:37] LABS: ALT (SGPT) 17 U/L (8-55); AST (SGOT) 28 U/L (5-34); Albumin 2.9 g/dL (3.4-4.8); Alkaline Phosphatase 71 U/L (40-110); Anion Gap 12 mmol/L (10-20); BUN (Urea Nitrogen) 11 mg/dL (9.8-20.1); Bilirubin, Total 0.7 mg/dL (0.2-1.2); Calc. Creatinine Clearance 82 mL/min (70-130); Calcium 7.1 mg/dL (7.8-10.44); Carbon Dioxide 23 mmol/L (23-31); Chloride 111 mmol/L (98-107); Estimated GFR-MDRD Greater than 90; Globulin 2.6 g/dL (2.4-3.5); Glucose 114 mg/dL (83-110); Iron 34 ug/dL (50-170); Iron Binding Capacity, Total 163 mcg/dL (265-497); Potassium 3.2 mmol/L (3.5-5.1); Protein, Total 5.5 g/dL (6.0-8.3); Sodium 143 mmol/L (136-145)
[2020-10-01 05:07] LABS: Ferritin 434.77 ng/mL (10-291)
--- NOTE | 2020-10-01 08:16 | PDOC.HOSPP ---
- Subjective Encounter Date: 10/01/20 Encounter Time: 08:12 Subjective: pleasantly demented - Objective Vital Signs & Weight: Vital Signs (12 hours) Pulse Ox 10/01/20 03:24 100 Weight Weight 133 lb Most Recent Monitor Data Heart Rate from ECG 80 NIBP 117/90 NIBP BP-Mean 99 Respiration from ECG 21 SpO2 100 I&O: 09/30/20 10/01/20 10/02/20 06:59 06:59 06:59 Output Total 1300 Balance -1300 Result Diagrams: 10/01/20 03:55 10/01/20 03:55 Hospitalist ROS - Medication Medications: Active Medications Generic Name Dose Route Start Last Admin Trade Name Freq PRN Reason Stop Dose Admin Potassium Chloride/Dextrose/Sod Cl 1,000 mls @ 125 mls/hr 09/30/20 20:45 10/01/20 01:53 D5 1/2 Ns W/40 Meq Kcl IV 1,000 mls .Q8H GHADA Administration Ceftriaxone Sodium 2 gm/ 100 mls @ 200 mls/hr 09/30/20 22:00 10/01/20 00:05 Sodium Chloride IVPB 100 mls Q24HR GHADA Administration Pantoprazole Sodium 40 mg 09/30/20 21:00 09/30/20 23:28 Pantoprazole 40 Mg Vial IVP Not Given Q12HR GHADA - Exam General Appearance: awake alert Neck: no JVD Heart: RRR, no murmur Respiratory: CTAB Gastrointestinal: soft, non-distended, normal bowel sounds Extremities: no edema Hosp A/P (1) Hydronephrosis Code(s): N13.30 - UNSPECIFIED HYDRONEPHROSIS Status: Acute Qualifiers: Hydronephrosis type: unspecified Qualified Code(s): N13.30 - Unspecified hydronephrosis (2) GI bleeding Code(s): K92.2 - GASTROINTESTINAL HEMORRHAGE, UNSPECIFIED Status: Acute Qualifiers: GI bleed type/associated pathology: anorectal hemorrhage Qualified Code(s): K62.5 - Hemorrhage of anus and rectum (3) Anemia due to blood loss, acute Code(s): D62 - ACUTE POSTHEMORRHAGIC ANEMIA Status: Acute (4) Anticoagulant long-term use Code(s): Z79.01 - JAIL (CURRENT) USE OF ANTICOAGULANTS Status: Chronic (5) Atrial fibrillation Code(s): I48.91 - UNSPECIFIED ATRIAL FIBRILLATION Status: Chronic Qualifiers: Atrial fibrillation type: permanent Qualified Code(s): I48.21 - Permanent atrial fibrillation (6) COVID-19 Code(s): U07.1 - COVID-19 Status: Acute (7) Dementia Code(s): F03.90 - UNSPECIFIED DEMENTIA WITHOUT BEHAVIORAL DISTURBANCE Status: Acute Qualifiers: Dementia type: unspecified type Dementia behavioral disturbance: without behavioral disturbance Qualified Code(s): F03.90 - Unspecified dementia without behavioral disturbance (8) Atrial fibrillation Code(s): I48.91 - UNSPECIFIED ATRIAL FIBRILLATION Status: Chronic (9) HTN (hypertension) Code(s): I10 - ESSENTIAL (PRIMARY) HYPERTENSION Status: Chronic Qualifiers: Hypertension type: essential hypertension Qualified Code(s): I10 - Essential (primary) hypertension - Plan cont indwelling mann serial CBC, BMP hold anticoag transfuse prn GI consult cont rocephin, await urine C&S
[2020-10-01] MEDS ORDERED: Potassium Chloride 20 MEQ TAB PO SCH (08:30)
[2020-10-01] MEDS ORDERED: Polyethylene Glycol 3350 17 GM Packet PO SCH ×2 (09:00→20:00)
[2020-10-01] MEDS ORDERED: FLU VACC QS2020-21(65YR UP)/PF 240 MCG/0.7 ML SYRINGE IM ONE (09:00)
[2020-10-01] MEDS: Saccharomyces boulardii 250 MG CAP PO SCH (09:44)
[2020-10-01] MEDS: Senokot S 8.6-50 MG TAB PO SCH ×2 (09:44→21:04)
[2020-10-01] MEDS: Cyanocobalamin (Vitamin B-12) 1,000 MCG TAB PO SCH (09:44)
[2020-10-01] MEDS: Calcium Carbonate 600 MG + Vit D TAB PO SCH ×2 (09:44→18:45)
--- NOTE | 2020-10-01 11:05 | CON ---
DATE OF CONSULTATION: 10/01/2020 REASON FOR CONSULTATION: Rectal bleeding. HISTORY OF PRESENT ILLNESS: Ms. Willard is a 80-year-old female, who is a long-term resident with history significant for dementia and atrial fibrillation, on Eliquis, recently had COVID-19 infection a month ago. Reportedly, she was noted to have some claudia-colored stool and bright red rectal bleeding at the long-term. The patient was thus admitted for further observation and evaluation. The patient is demented and further history is not obtainable. She has done well overnight without any evidence of rectal bleeding. There is no indication of abdominal pain. There is no observation of any nausea or vomiting. On admission, CT showed distended bladder with hydronephrosis in addition to fecal impaction. PAST MEDICAL HISTORY: 1. Advanced dementia. 2. Paroxysmal atrial fibrillation, on Eliquis. 3. Hypertension. 4. Hypothyroidism. 5. Diverticulosis coli, last colonoscopy in 2013. 6. Degenerative joint disease. ALLERGIES: SULFA AND CAFFEINE. [facility] MEDICATIONS: Include: 1. Donepezil 10 mg at bedtime. 2. Ecotrin 81 mg daily. 3. Eliquis 5 mg b.i.d. 4. Metoprolol 50 mg tablet, 1.5 tablets p.o. daily. 5. Memantine 10 mg b.i.d. 6. Synthroid 25 mcg daily. 7. Hydrochlorothiazide 25 mg daily. 8. Zyprexa p.o. at bedtime. 9. Temazepam 15 mg 2 tablets at bedtime. SOCIAL HISTORY: The patient is a long-term resident. No tobacco history or alcohol usage per chart review. FAMILY HISTORY: Not obtainable because of mental status. REVIEW OF SYSTEMS: Not obtainable because of mental status. PHYSICAL EXAMINATION: VITAL SIGNS: Temperature is 98.4, blood pressure 117/90, pulse of 80. GENERAL: She is alert without distress, obviously demented. HEENT: Shows anicteric sclerae. Oropharynx is clear. CV: Shows normal S1 and S2, regular rate and rhythm. CHEST: Shows breath sounds poor excursion. ABDOMEN: Nondistended. No tympany. No tenderness. She has active bowel sounds. EXTREMITIES: Show no edema. RECTAL: Shows small flat external hemorrhoids, large amount of impacted stool in the rectal vault. Stool is brown. LABORATORY DATA: WBCs 11.2; hemoglobin 10.3, baseline is 12 to 13. INR is 2.1, PT 24. Electrolytes within normal range. Creatinine 0.53, BUN of 11. LFTs are normal. B12 is 288. Folic acid is 5.9. Ferritin is 434. ASSESSMENT: 1. A 80-year-old female with fecal impaction, confirmed by rectal exam and seen on CT, presented with rectal bleeding from the long-term. I suspect rectal bleeding is outlet in origin. The stool in the rectal vault on exam is brownish and nonbloody. No further signs of bleeding since admission. 2. Anemia, multifactorial. 3. Dementia. 4. Atrial fibrillation. 5. Recent COVID-19 infection. RECOMMENDATIONS: 1. Bedside fecal disimpaction this afternoon. 2. Continue to hold Eliquis. 3. Bleeding appears to be outlet in origin. As of now, no indication for any endoscopic evaluation. Job ID: [id number]
[2020-10-01 11:34] LABS: SARS-CoV-2 MS2 Positive; SARS-CoV-2 N Gene Negative; SARS-CoV-2 S Gene Negative; SARS-CoV-2 by NAA Not Detected (NotDetected); SARS-CoV-2 orf1ab Negative
[2020-10-01] MEDS ORDERED: Fleet Enema 133 ML BOT FS PRN (12:00)
[2020-10-01] MEDS ORDERED: Fleet Enema 133 ML BOT FS SCH (12:00)
--- NOTE | 2020-10-01 12:15 | PDOC.PALCO ---
Palliative Care Consult - Consult Details Requesting Physician: Dr coreas Reason for Consult: goals of care, advance directives assistance, family support Family Members Present: None - spoke with patient son Jr Willard via phone - Pertinent HPI 80 year old female with history of dementia. She also is noted to have atrial fibrillation, on anticoagulation with recent discharge from [facility] secondary to Covid 19. She had recently lived at [facility] in [place], her this past June. Over the past three days she has been noted to have blood in her stools, and on day of presentation to emergency room she was noted to have bright red bloody diarrhea, with increase in altered mentation as well as hypotension. She was transferred to [facility] for further evaluation. Given fluid bolus. HGB was 10.3 and three weeks ago was 13.6. Admitted for further evaluation and medical management. 6 Emergency room/hospital stays in past year. - Pertinent PMH Paroxysmal atrial fibrillation currently on anticoagulation, advanced dementia, hypertension, hypothyroid, diverticulosis, anxiety, recent Covid 19 in August 2020. - Social History Smoking Status: Former smoker Smoking: quit greater than 1 year Alcohol Use: none Drug Use History: none Living Situation: residential resident - Medications MAR Reviewed: Yes - Allergies Allergies/Adverse Reactions: Allergies Allergy/AdvReac Type Severity Reaction Status Date / Time Sulfa (Sulfonamide Allergy Verified 10/01/20 02:23 Antibiotics) caffeine AdvReac Intermediate Anxiety Verified 10/01/20 02:23 - Subjective Confused, oriented to self and that she is "in a hospital" but unable to recall where. In attempts to orient she did not understand or believe she was in [place] at [facility]. Confused by mann cath. States "her tummy hurts" but is non specific, poor historian - ROS Non Response: due to mental status - Objective Vital Signs: Vital Signs - Most Recent Temp Pulse Resp BP Pulse Ox 95 10/01/20 08:00 Palliative Performance Scale: 40 - Physical Exam Constitutional: cachectic, confusion, ill appearing HEENT: EOMI, moist MMs, sclera anicteric Respiratory: no wheezing, unlabored breathing Cardiovascular: RRR Gastrointestinal: soft, positive bowel sounds Deviation from normal: no guarding Genitourinary: mann catheter Musculoskeletal: no cyanosis, no clubbing, no edema Neurology: moves all 4 limbs Skin: cap refill <2 seconds, fragile Deviation from normal: Oriented to self - Problem List (1) Palliative care encounter Code(s): Z51.5 - ENCOUNTER FOR PALLIATIVE CARE Current Visit: Yes Status: Acute (2) Anemia due to blood loss, acute Code(s): D62 - ACUTE POSTHEMORRHAGIC ANEMIA Current Visit: Yes Status: Acute (3) GI bleeding Code(s): K92.2 - GASTROINTESTINAL HEMORRHAGE, UNSPECIFIED Current Visit: Yes Status: Acute Qualifiers: GI bleed type/associated pathology: anorectal hemorrhage Qualified Code(s): K62.5 - Hemorrhage of anus and rectum (4) Dementia Code(s): F03.90 - UNSPECIFIED DEMENTIA WITHOUT BEHAVIORAL DISTURBANCE Current Visit: No Status: Acute Qualifiers: Dementia type: unspecified type Dementia behavioral disturbance: without behavioral disturbance Qualified Code(s): F03.90 - Unspecified dementia without behavioral disturbance (5) Anticoagulant long-term use Code(s): Z79.01 - 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 Communicated with patient son Jr. He confirmed his father/patient spouse in Jun. Discussed multiple hospital/emergency room visits/admissions. Addressed disease trajectory of dementia, understanding. He wishes to have best care currently with knowledge that in the future it may be appropriate with declining functional status to add the supportive layer of hospice. Asked for assistance in locating his mothers lost glasses from her hospital stay in August 2020. S Aaron to assist with communicating with housekeeping in an attempt to locate. Introduced Palliative Care. Discussed Disease trajectory and Goal of Care *DNAR status, also wishes to complete an OOHDNAR *Requested that a new residential for his mother to discharge to be looked into. States he lives in [place] and he would prefer to have her closer to him for more frequent visits. *Patient had previously been on [place] HIP 1gm tab / 1 PO BID. This was prescribed by Dr Hansen for chronic UTI. communicated with Dr Yanez [70] minutes spent on this encounter with >50% of the time in counseling and coordination of care. Thank you for this very appropriate consult.
[2020-10-01 14:10] LABS: Hemoglobin 9.8 g/dL (12.0-16.0); Platelet Count 211 thou/uL (130-400)
[2020-10-01] MEDS: Pantoprazole 40 MG VIAL IVP SCH ×2 (15:22→21:03)
--- NOTE | 2020-10-02 00:30 | OP ---
DATE OF PROCEDURE: 10/01/2020 PROCEDURE PERFORMED: Fecal disimpaction, bedside. DESCRIPTION OF PROCEDURE: The patient was placed in left lateral recumbent position. Digital exam showed very hard fecal impaction. Manual disimpaction was performed using multiple [employer]. Large amount of ranging from light brown to dark brownish stool were disimpacted and evacuated from the rectum. There was no rectal bleeding at the time of manual disimpaction. The patient tolerated it well without any difficulty. ASSESSMENT: Status post disimpaction of large amount of stool from the rectal vault. RECOMMENDATION: 1. A 34 g of MiraLAX tonight followed by 17 g of MiraLAX daily starting tomorrow. 2. No need for any future evaluation as her rectal bleeding is from benign rectal outlet as her stool is brown and nonbloody. 3. Can resume Eliquis 5 mg p.o. b.i.d. from GI standpoint. Job ID: [id number]
[2020-10-02 03:48] LABS: #Eosinphils 0.3 thou/uL (0.0-0.7); #Lymphocytes 1.8 thou/uL (1.20-3.40); #Neutrophils 8.1 thou/uL (1.40-6.50); %Basophils 0.2 % (0.0-1.0); %Eosinophils 2.6 % (0.0-10.0); %Lymphocytes 15.9 % (21.0-51.0); %Monocytes 8.6 % (0.0-10.0); %Neutrophils 72.7 % (42.0-75.0); Mean Corpuscular HGB CONC 32.9 g/dL (32.0-36.0); Mean Corpuscular Volume 88.3 fL (78.0-98.0); Mean Platelet Volume 8.2 fL (7.4-10.4); Platelet Count 210 thou/uL (130-400); RBC Distribution Width 14.1 % (11.5-14.5); Red Blood Cell (RBC) Count 3.44 mill/uL (4.20-5.40); White Blood Cell (WBC) Count 11.2 thou/uL (4.8-10.8)
[2020-10-02 04:09] LABS: ALT (SGPT) 14 U/L (8-55); AST (SGOT) 25 U/L (5-34); Albumin 2.7 g/dL (3.4-4.8); Alkaline Phosphatase 68 U/L (40-110); Anion Gap 11 mmol/L (10-20); BUN (Urea Nitrogen) Less than 4 mg/dL (9.8-20.1); Bilirubin, Total 0.9 mg/dL (0.2-1.2); Calc. Creatinine Clearance 87 mL/min (70-130); Calcium 7.5 mg/dL (7.8-10.44); Carbon Dioxide 28 mmol/L (23-31); Chloride 109 mmol/L (98-107); Estimated GFR-MDRD Greater than 90; Globulin 2.7 g/dL (2.4-3.5); Glucose 103 mg/dL (83-110); Potassium 4.2 mmol/L (3.5-5.1); Protein, Total 5.4 g/dL (6.0-8.3); Sodium 144 mmol/L (136-145)
--- NOTE | 2020-10-02 07:53 | RAD ---
EXAM: KUB PROVIDED CLINICAL HISTORY: Status post fecal disimpaction COMPARISON: CT 09/30/2020 FINDINGS: Visualized lung bases appear clear. Bowel gas pattern is nonspecific. No radiographically apparent ur inary tract calculi. Evaluation for pneumoperitoneum is limited given the supine nature of study. IMPRESSION: Nonspecific bowel gas pattern.
--- NOTE | 2020-10-02 07:54 | PDOC.HOSPP ---
- Subjective Encounter Date: 10/02/20 Encounter Time: 07:52 Subjective: oriented to person only, chronic. no distress - Objective Vital Signs & Weight: Vital Signs (12 hours) Temp Pulse Ox 10/02/20 07:36 98.0 F 10/02/20 03:51 98.6 F 10/01/20 20:00 100 Weight Weight 133 lb Most Recent Monitor Data Heart Rate from ECG 80 NIBP 102/64 NIBP BP-Mean 76 Respiration from ECG 26 SpO2 100 I&O: 10/01/20 10/02/20 10/03/20 06:59 06:59 06:59 Intake Total 1500 Output Total 4150 Balance -2650 Result Diagrams: 10/02/20 03:32 10/02/20 03:32 Hospitalist ROS - Medication Medications: Active Medications Generic Name Dose Route Start Last Admin Trade Name Freq PRN Reason Stop Dose Admin Calcium/Vitamin D 1 tab 10/01/20 08:00 10/01/20 18:45 Calcium Carbonate 600 Mg + Vit D Tab PO 1 tab BID-WM GHADA Administration Cyanocobalamin 1,000 mcg 10/01/20 09:00 10/01/20 09:44 Cyanocobalamin (Vitamin B-12) 1,000 Mcg Tab PO 1,000 mcg DAILY GHADA Administration Potassium Chloride/Dextrose/Sod Cl 1,000 mls @ 125 mls/hr 09/30/20 20:45 10/01/20 21:03 D5 1/2 Ns W/40 Meq Kcl IV 1,000 mls .Q8H GHADA Administration Ceftriaxone Sodium 2 gm/ 100 mls @ 200 mls/hr 09/30/20 22:00 10/01/20 21:04 Sodium Chloride IVPB 100 mls Q24HR GHADA Administration Pantoprazole Sodium 40 mg 09/30/20 21:00 10/01/20 21:03 Pantoprazole 40 Mg Vial IVP 40 mg Q12HR GHADA Administration Saccharomyces Boulardii 250 mg 10/01/20 09:00 10/01/20 09:44 Saccharomyces Boulardii 250 Mg Cap PO 250 mg DAILY GHADA Administration Senna/Docusate Sodium 2 tab 10/01/20 09:00 10/01/20 21:04 Senokot S 8.6-50 Mg Tab PO 2 tab BID GHADA Administration - Exam Neck: no JVD Heart: no murmur, irregular Respiratory: CTAB Gastrointestinal: soft, normal bowel sounds, no palpable masses Extremities: no edema Hosp A/P (1) Hydronephrosis Code(s): N13.30 - UNSPECIFIED HYDRONEPHROSIS Status: Acute Qualifiers: Hydronephrosis type: unspecified Qualified Code(s): N13.30 - Unspecified hydronephrosis (2) GI bleeding Code(s): K92.2 - GASTROINTESTINAL HEMORRHAGE, UNSPECIFIED Status: Acute Qualifiers: GI bleed type/associated pathology: anorectal hemorrhage Qualified Code(s): K62.5 - Hemorrhage of anus and rectum (3) Anemia due to blood loss, acute Code(s): D62 - ACUTE POSTHEMORRHAGIC ANEMIA Status: Acute (4) Anticoagulant long-term use Code(s): 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) USE OF ANTICOAGULANTS Status: Chronic (5) Atrial fibrillation Code(s): I48.91 - UNSPECIFIED ATRIAL FIBRILLATION Status: Chronic Qualifiers: Atrial fibrillation type: permanent Qualified Code(s): I48.21 - Permanent atrial fibrillation (6) COVID-19 Code(s): U07.1 - COVID-19 Status: Acute (7) Dementia Code(s): F03.90 - UNSPECIFIED DEMENTIA WITHOUT BEHAVIORAL DISTURBANCE Status: Acute Qualifiers: Dementia type: unspecified type Dementia behavioral disturbance: without behavioral disturbance Qualified Code(s): F03.90 - Unspecified dementia without behavioral disturbance (8) Atrial fibrillation Code(s): I48.91 - UNSPECIFIED ATRIAL FIBRILLATION Status: Chronic (9) HTN (hypertension) Code(s): I10 - ESSENTIAL (PRIMARY) HYPERTENSION Status: Chronic Qualifiers: Hypertension type: essential hypertension Qualified Code(s): I10 - Essen tial (primary) hypertension - Plan cont indwelling mann serial CBC, BMP no indication for endoscopy CM for placement OOH DNAR cont rocephin, await urine C&S resume home meds
[2020-10-02] MEDS ORDERED: Aspirin 81 mg Enteric Coated Tablet PO SCH (09:00)
[2020-10-02] MEDS: D5 1/2 NS w/40 mEq KCL 1,000 ML IV SCH ×3 (09:08→20:02)
[2020-10-02] MEDS: Calcium Carbonate 600 MG + Vit D TAB PO SCH ×2 (09:08→17:36)
[2020-10-02] MEDS: Cyanocobalamin (Vitamin B-12) 1,000 MCG TAB PO SCH (09:09)
[2020-10-02] MEDS: Aspirin 81 mg Enteric Coated Tablet PO SCH (09:09)
[2020-10-02] MEDS: OLANZapine 2.5 MG TAB PO SCH ×2 (09:09→20:04)
[2020-10-02] MEDS: Senokot S 8.6-50 MG TAB PO SCH ×2 (09:09→20:01)
[2020-10-02] MEDS: Apixaban 5 MG TAB PO SCH ×2 (09:09→20:02)
[2020-10-02] MEDS: Polyethylene Glycol 3350 17 GM Packet PO SCH (09:10)
[2020-10-02] MEDS: Saccharomyces boulardii 250 MG CAP PO SCH (09:10)
[2020-10-02] MEDS: Pantoprazole 40 MG VIAL IVP SCH ×2 (09:10→20:01)
--- NOTE | 2020-10-02 12:02 | PRG ---
DATE OF SERVICE: 10/02/2020 SUBJECTIVE: The patient is sleepy this morning. She did not sleep well last night. She has had 3 bowel movements with soft stools since her fecal disimpaction yesterday. No rectal bleeding seen. OBJECTIVE: VITAL SIGNS: Temperature is 98.2, blood pressure 94/53, pulse of 76. GENERAL: She is sleepy but arousable. HEENT: Shows anicteric sclerae. CV: Shows normal S1, S2. Regular rate and rhythm. CHEST: Shows breath sounds. ABDOMEN: Soft. No distention. No tympany. No tenderness. She has active bowel sounds. EXTREMITIES: Show no edema. LABORATORY DATA: WBC is 11.3, hemoglobin 10.0, and platelet count of 210. Electrolytes within normal range. Creatinine is 0.50. LFTs are normal. KUB, no stool seen anywhere along the colon. ASSESSMENT: 1. Fecal impaction, status post manual disimpaction yesterday with good result. The patient has since had further bowel movements with clearing of all stool at least by KUB. 2. Chronic anemia, multifactorial. 3. Rectal bleeding, outlet in origin. No further rectal bleeding seen. 4. Dementia. 5. Atrial fibrillation. 6. Recent COVID-19 infection. RECOMMENDATIONS: 1. MiraLAX 17 g p.o. daily. 2. The patient is doing well from GI standpoint now. No new recommendation. We will sign off, please recall if needed. Job ID: [id number]
[2020-10-02] MEDS: Temazepam 15 MG CAP PO SCH (20:01)
[2020-10-02] MEDS: Donepezil HCl 10 MG TAB PO SCH (20:02)
[2020-10-02] MEDS: cefTRIAXone\\ROCEPHIN 2 GM in Sodium Chloride 0.9% 100 ML IVPB SCH (20:02)
[2020-10-03] MEDS ORDERED: Sodium Chloride 0.9% 500 ML IV SCH (00:15)
[2020-10-03] MEDS: D5 1/2 NS w/40 mEq KCL 1,000 ML IV SCH ×4 (03:30→15:18)
[2020-10-03] MEDS ORDERED: Levothyroxine Sodium 50 MCG TAB PO SCH (06:00)
[2020-10-03] MEDS: Levothyroxine Sodium 25 MCG TAB PO SCH (06:25)
[2020-10-03] MEDS: Calcium Carbonate 600 MG + Vit D TAB PO SCH ×2 (08:49→17:47)
[2020-10-03] MEDS: Apixaban 5 MG TAB PO SCH ×2 (08:49→20:14)
[2020-10-03] MEDS: Cyanocobalamin (Vitamin B-12) 1,000 MCG TAB PO SCH (08:49)
[2020-10-03] MEDS: Aspirin 81 mg Enteric Coated Tablet PO SCH (08:49)
[2020-10-03] MEDS: Polyethylene Glycol 3350 17 GM Packet PO SCH (08:50)
[2020-10-03] MEDS: Pantoprazole 40 MG VIAL IVP SCH ×2 (08:50→20:23)
[2020-10-03] MEDS: OLANZapine 2.5 MG TAB PO SCH ×2 (08:50→21:30)
[2020-10-03] MEDS: Senokot S 8.6-50 MG TAB PO SCH ×2 (08:50→20:15)
[2020-10-03] MEDS: Saccharomyces boulardii 250 MG CAP PO SCH (08:50)
--- NOTE | 2020-10-03 12:53 | PDOC.HOSPP ---
- Subjective Encounter Date: 10/03/20 Encounter Time: 12:45 Subjective: f/u for UTI showing taniya receiving Rocephin. s/p fecal disimpaction with associated rectal bleeding locally. Feels better overall but remains confused with hx of dementia. - Objective Vital Signs & Weight: Vital Signs (12 hours) Temp Pulse Pulse Ox 10/03/20 11:27 97.9 F 73 95 10/03/20 07:34 97.7 F 73 100 Weight Weight 133 lb Most Recent Monitor Data Heart Rate from ECG 74 NIBP 101/54 NIBP BP-Mean 69 Respiration from ECG 19 SpO2 98 I&O: 10/02/20 10/03/20 10/04/20 06:59 06:59 06:59 Intake Total 1500 1600 Output Total 4150 1950 550 Balance -2650 -350 -550 Result Diagrams: 10/02/20 03:32 10/02/20 03:32 Additional Labs: Microbiology 09/30/20 18:53 Urine mann catheter Urine Culture - Final Presumptive Taniya albicans 09/25/20 14:26 Urine clean catch Urine Culture - Final Presumptive Taniya albicans 09/06/20 10:37 Venous blood - Right Hand Blood Culture - Preliminary NO GROWTH AT 48 HOURS 09/06/20 10:27 Venous blood - Left Hand Blood Culture - Preliminary NO GROWTH AT 48 HOURS Laboratory Tests 09/06/20 09/06/20 09/07/20 10:00 10:37 06:07 Sodium 132 L Potassium 3.7 3.4 L TSH 3rd Generation SARS-CoV-2 (PCR) SARS-CoV-2 Rap RNA(RT-PCR) DETECTED A* 09/07/20 09/30/20 06:07 22:40 Sodium Potassium TSH 3rd Generation 19.3184 H SARS-CoV-2 (PCR) Not Detected SARS-CoV-2 Rap RNA(RT-PCR) Radiology Reviewed by me: Yes (KUB - non-specific bowel gas pattern) EKG Reviewed by me: Yes (Tele - A-fib in 's) Hospitalist ROS - Medication Medications: Active Medications Generic Name Dose Route Start Last Admin Trade Name Freq PRN Reason Stop Dose Admin Apixaban 5 mg 10/02/20 09:00 10/03/20 08:49 Apixaban 5 Mg Tab PO 5 mg BID GHADA Administration Aspirin 81 mg 10/02/20 09:00 10/03/20 08:49 Aspirin 81 Mg Enteric Coated Tablet PO 81 mg DAILY GHADA Administration Calcium/Vitamin D 1 tab 10/01/20 08:00 10/03/20 08:49 Calcium Carbonate 600 Mg + Vit D Tab PO 1 tab BID-WM GHADA Administration Cyanocobalamin 1,000 mcg 10/01/20 09:00 10/03/20 08:49 Cyanocobalamin (Vitamin B-12) 1,000 Mcg Tab PO 1,000 mcg DAILY GHADA Administration Donepezil HCl 10 mg 10/02/20 21:00 10/02/20 20:02 Donepezil Hcl 10 Mg Tab PO 10 mg HS GHADA Administration Potassium Chloride/Dextrose/Sod Cl 1,000 mls @ 125 mls/hr 09/30/20 20:45 10/03/20 03:30 D5 1/2 Ns W/40 Meq Kcl IV 1,000 mls .Q8H GHADA Administration Ceftriaxone Sodium 2 gm/ 100 mls @ 200 mls/hr 09/30/20 22:00 10/02/20 20:02 Sodium Chloride IVPB 100 mls Q24HR GHADA Administration Levothyroxine Sodium 25 mcg 10/03/20 06:00 10/03/20 06:25 Levothyroxine Sodium 25 Mcg Tab PO 25 mcg 0600 GHADA Administration Memantine 10 mg 10/02/20 09:00 10/03/20 08:49 Memantine Hcl 10 Mg Tab PO 10 mg BID GHADA Administration Metoprolol Succinate 75 mg 10/02/20 09:00 10/03/20 08:49 Metoprolol Succinate Xl 50 Mg Tab PO 75 mg DAILY GHADA Administration Olanzapine 2.5 mg 10/02/20 09:00 10/03/20 08:50 Olanzapine 2.5 Mg Tab PO 2.5 mg BID GHADA Administration Pantoprazole Sodium 40 mg 09/30/20 21:00 10/03/20 08:50 Pantoprazole 40 Mg Vial IVP 40 mg Q12HR GHADA Administration Polyethylene Glycol 17 gm 10/02/20 09:00 10/03/20 08:50 Polyethylene Glycol 3350 17 Gm Packet PO Not Given DAILY GHADA Saccharomyces Boulardii 250 mg 10/01/20 09:00 10/03/20 08:50 Saccharomyces Boulardii 250 Mg Cap PO 250 mg DAILY GHADA Administration Senna/Docusate Sodium 2 tab 10/01/20 09:00 10/03/20 08:50 Senokot S 8.6-50 Mg Tab PO Not Given BID GHADA Temazepam 30 mg 10/02/20 21:00 10/02/20 20:01 Temazepam 15 Mg Cap PO 30 mg HS GHADA Administration - Exam General Appearance: NAD, awake alert Eye: PERRL, anicteric sclera ENT: normocephalic atraumatic, no oropharyngeal lesions Neck: supple, symmetric, no JVD, no thyromegaly, no lymphadenopathy Heart: no murmur, no gallops, no rubs, normal peripheral pulses, irregular Heart - other findings: S1, S2 Respiratory: CTAB, no wheezes, no rales, no ronchi, normal chest expansion, no tachypnea Gastrointestinal: soft, non-tender, non-distended, normal bowel sounds, no palpable masses Extremities: no cyanosis, no clubbing, no edema Skin: normal turgor, no lesions Neurological: cranial nerve grossly intact, no new deficit Musculoskeletal: normal tone, generalized weakness Psychiatric: normal affect, oriented to person Hosp A/P (1) UTI (urinary tract infection) Status: Acute Plan: Taniya spp isolated, start Diflucan 100mg po daily (2) Sepsis Code(s): A41.9 - SEPSIS, UNSPECIFIED ORGANISM Status: Acute Qualifiers: Sepsis type: sepsis due to unspecified organism Plan: Resolving, continue supportive mgmt (3) Acute encephalopathy Code(s): G93.40 - ENCEPHALOPATHY, UNSPECIFIED Status: Acute Plan: Secondary to UTI/Sepsis, metabolic in nature, resolving (4) Anticoagulant long-term use Code(s): 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) USE OF ANTICOAGULANTS Status: Chronic Plan: Continue Eliquis (5) Atrial fibrillation Code(s): I48.91 - UNSPECIFIED ATRIAL FIBRILLATION Status: Chronic Plan: Rate-controlled, continue Metoprolol/Eliquis (6) Hypothyroidism Code(s): E03.9 - HYPOTHYROIDISM, UNSPECIFIED Status: Chronic Qualifiers: Hypothyroidism type: unspecified Qualified Code(s): E03.9 - Hypothyroidism, unspecified Plan: Continue Levothyroxine - Plan continue antibiotics, PT/OT, social secretary, DVT proph w/SCDs Stable currently Continue Rocephin another 24h Start Diflucan 100mg po daily OOB with PT Continue Metoprolol/Eliquis Appreciate GI assistance Start Flomax 0.4mg daily Monitor bladder residuals Decrease IVF 75ml/h AM lab: H/H Transfer to medical floor
[2020-10-03] MEDS ORDERED: Fluconazole 100 MG TAB PO SCH (13:00)
[2020-10-03] MEDS: Tamsulosin HCl 0.4 MG CAP PO SCH (13:23)
[2020-10-03] MEDS: Donepezil HCl 10 MG TAB PO SCH (20:15)
[2020-10-03] MEDS: Temazepam 15 MG CAP PO SCH (20:15)
[2020-10-03] MEDS: cefTRIAXone\\ROCEPHIN 2 GM in Sodium Chloride 0.9% 100 ML IVPB SCH (21:29)
[2020-10-04] MEDS: Levothyroxine Sodium 25 MCG TAB PO SCH (05:37)
[2020-10-04] MEDS: D5 1/2 NS w/40 mEq KCL 1,000 ML IV SCH (05:37)
[2020-10-04 05:54] LABS: Hemoglobin 10.6 g/dL (12.0-16.0); Platelet Count 251 thou/uL (130-400)
[2020-10-04] MEDS: OLANZapine 2.5 MG TAB PO SCH ×2 (09:39→20:59)
[2020-10-04] MEDS: Polyethylene Glycol 3350 17 GM Packet PO SCH (09:39)
[2020-10-04] MEDS: Aspirin 81 mg Enteric Coated Tablet PO SCH (09:40)
[2020-10-04] MEDS: Tamsulosin HCl 0.4 MG CAP PO SCH (09:40)
[2020-10-04] MEDS: Apixaban 5 MG TAB PO SCH ×2 (09:40→20:59)
[2020-10-04] MEDS: Calcium Carbonate 600 MG + Vit D TAB PO SCH ×2 (09:40→16:33)
[2020-10-04] MEDS: Senokot S 8.6-50 MG TAB PO SCH ×2 (09:40→20:58)
[2020-10-04] MEDS: Cyanocobalamin (Vitamin B-12) 1,000 MCG TAB PO SCH (09:40)
[2020-10-04] MEDS: Saccharomyces boulardii 250 MG CAP PO SCH (09:40)
[2020-10-04] MEDS: Fluconazole 100 MG TAB PO SCH (09:40)
[2020-10-04] MEDS: Pantoprazole 40 MG VIAL IVP SCH ×2 (09:40→20:59)
--- NOTE | 2020-10-04 10:24 | PDOC.HOSPP ---
- Subjective Encounter Date: 10/04/20 Encounter Time: 10:00 Subjective: f/u s/p fecal disimpaction with local rectal bleeding. Overall doing well. Had Mann catheter replaced due to high PVR by bladder scan. - Objective Vital Signs & Weight: Vital Signs (12 hours) Temp Pulse Resp BP Pulse Ox 10/04/20 07:42 98.1 F 72 18 133/75 98 10/04/20 05:42 99 10/04/20 00:00 98.4 F 71 16 137/80 99 Weight Weight 133 lb Most Recent Monitor Data Heart Rate from ECG 74 NIBP 111/66 NIBP BP-Mean 81 Respiration from ECG 19 SpO2 98 I&O: 10/03/20 10/04/20 10/05/20 06:59 06:59 06:59 Intake Total 1600 Output Total 1950 3350 Balance -350 -3350 Result Diagrams: 10/04/20 05:38 10/02/20 03:32 Additional Labs: Microbiology 09/30/20 18:53 Urine mann catheter Urine Culture - Final Presumptive Taniya albicans 09/25/20 14:26 Urine clean catch Urine Culture - Final Presumptive Taniya albicans 09/06/20 10:37 Venous blood - Right Hand Blood Culture - Preliminary NO GROWTH AT 48 HOURS 09/06/20 10:27 Venous blood - Left Hand Blood Culture - Preliminary NO GROWTH AT 48 HOURS Laboratory Tests 09/06/20 09/06/20 09/07/20 10:00 10:37 06:07 Sodium 132 L Potassium 3.7 3.4 L TSH 3rd Generation SARS-CoV-2 (PCR) SARS-CoV-2 Rap RNA(RT-PCR) DETECTED A* 09/07/20 09/30/20 06:07 22:40 Sodium Potassium TSH 3rd Generation 19.3184 H SARS-CoV-2 (PCR) Not Detected SARS-CoV-2 Rap RNA(RT-PCR) Hospitalist ROS - Medication Medications: Active Medications Generic Name Dose Route Start Last Admin Trade Name Freq PRN Reason Stop Dose Admin Apixaban 5 mg 10/02/20 09:00 10/04/20 09:40 Apixaban 5 Mg Tab PO 5 mg BID GHADA Administration Aspirin 81 mg 10/02/20 09:00 10/04/20 09:40 Aspirin 81 Mg Enteric Coated Tablet PO 81 mg DAILY GHADA Administration Calcium/Vitamin D 1 tab 10/01/20 08:00 10/04/20 09:40 Calcium Carbonate 600 Mg + Vit D Tab PO 1 tab BID-WM GHADA Administration Cyanocobalamin 1,000 mcg 10/01/20 09:00 10/04/20 09:40 Cyanocobalamin (Vitamin B-12) 1,000 Mcg Tab PO 1,000 mcg DAILY GHADA Administration Donepezil HCl 10 mg 10/02/20 21:00 10/03/20 20:15 Donepezil Hcl 10 Mg Tab PO 10 mg HS GHADA Administration Fluconazole 100 mg 10/04/20 09:00 10/04/20 09:40 Fluconazole 100 Mg Tab PO 100 mg DAILY GHADA Administration Ceftriaxone Sodium 2 gm/ 100 mls @ 200 mls/hr 09/30/20 22:00 10/03/20 21:29 Sodium Chloride IVPB 100 mls Q24HR GHADA Administration Levothyroxine Sodium 25 mcg 10/03/20 06:00 10/04/20 05:37 Levothyroxine Sodium 25 Mcg Tab PO 25 mcg 0600 GHADA Administration Memantine 10 mg 10/02/20 09:00 10/04/20 09:40 Memantine Hcl 10 Mg Tab PO 10 mg BID GHADA Administration Metoprolol Succinate 75 mg 10/02/20 09:00 10/04/20 09:39 Metoprolol Succinate Xl 50 Mg Tab PO 75 mg DAILY GHADA Administration Olanzapine 2.5 mg 10/02/20 09:00 10/04/20 09:39 Olanzapine 2.5 Mg Tab PO 2.5 mg BID GHADA Administration Pantoprazole Sodium 40 mg 09/30/20 21:00 10/04/20 09:40 Pantoprazole 40 Mg Vial IVP 40 mg Q12HR GHADA Administration Polyethylene Glycol 17 gm 10/02/20 09:00 10/04/20 09:39 Polyethylene Glycol 3350 17 Gm Packet PO 17 gm DAILY GHADA Administration Saccharomyces Boulardii 250 mg 10/01/20 09:00 10/04/20 09:40 Saccharomyces Boulardii 250 Mg Cap PO 250 mg DAILY GHADA Administration Senna/Docusate Sodium 2 tab 10/01/20 09:00 10/04/20 09:40 Senokot S 8.6-50 Mg Tab PO 2 tab BID GHADA Administration Tamsulosin HCl 0.4 mg 10/03/20 09:00 10/04/20 09:40 Tamsulosin Hcl 0.4 Mg Cap PO 0.4 mg DAILY GHADA Administration Temazepam 30 mg 10/02/20 21:00 10/03/20 20:15 Temazepam 15 Mg Cap PO 30 mg HS GHADA Administration - Exam General Appearance: NAD, awake alert Eye: PERRL, anicteric sclera ENT: normocephalic atraumatic, no oropharyngeal lesions Neck: supple, symmetric, no JVD, no thyromegaly, no lymphadenopathy Heart: RRR, no gallops, no rubs, normal peripheral pulses Heart - other findings: S1, S2 Respiratory: CTAB, no wheezes, no rales, no ronchi, normal chest expansion, no tachypnea Gastrointestinal: soft, non-tender, non-distended, normal bowel sounds, no palpable masses Extremities: no cyanosis, no clubbing, no edema Skin: normal turgor, no lesions Neurological: cranial nerve grossly intact, no new deficit Musculoskeletal: normal tone, generalized weakness Psychiatric: oriented to person, flat affect Hosp A/P (1) UTI (urinary tract infection) Status: Acute Plan: Presumptive Taniya spp, continue Diflucan, continue Rocephin another 24h then d/c (2) Sepsis Code(s): A41.9 - SEPSIS, UNSPECIFIED ORGANISM Status: Acute Qualifiers: Sepsis type: sepsis due to unspecified organism Plan: Resolving, continue supportive mgmt (3) Acute encephalopathy Code(s): G93.40 - ENCEPHALOPATHY, UNSPECIFIED Status: Acute Plan: Improved, supportive mgmt (4) Anticoagulant long-term use Code(s): Z79.01 - DECATIZER (CURRENT) USE OF ANTICOAGULANTS Status: Chronic (5) Atrial fibrillation Code(s): I48.91 - UNSPECIFIED ATRIAL FIBRILLATION Status: Chronic (6) Hypothyroidism Code(s): E03.9 - HYPOTHYROIDISM, UNSPECIFIED Status: Chronic Qualifiers: Hypothyroidism type: unspecified Qualified Code(s): E03.9 - Hypothyroidism, unspecified - Plan continue antibiotics, PT/OT, social sciences chair, out of bed/ambulate, DVT proph w/SCDs Consults: Palliative Care Stable currently Continue Rocephin another 24h Continue Diflucan 100mg po daily OOB with PT Continue Metoprolol/Eliquis Appreciate GI assistance Start Flomax 0.4mg daily Mann catheter replaced 10/03/20 Saline lock IVF's Likely d/c to Assisted Living in [place] 10/05/20
[2020-10-04] MEDS: Temazepam 15 MG CAP PO SCH (20:58)
[2020-10-04] MEDS: Donepezil HCl 10 MG TAB PO SCH (20:58)
[2020-10-04] MEDS: cefTRIAXone\\ROCEPHIN 2 GM in Sodium Chloride 0.9% 100 ML IVPB SCH (22:12)
[2020-10-05] MEDS: Levothyroxine Sodium 25 MCG TAB PO SCH (05:36)
--- NOTE | 2020-10-05 09:13 | PDOC.HOSPP ---
- Subjective Encounter Date: 10/05/20 Encounter Time: 11:40 Subjective: Patient states she feels cold. No other complaints. - Objective Vital Signs & Weight: Vital Signs (12 hours) Temp Pulse Resp BP Pulse Ox 10/05/20 07:14 98.2 F 76 19 110/70 97 10/05/20 04:00 98.2 F 75 16 110/74 96 10/05/20 00:00 98.2 F 74 18 112/71 97 Weight Weight 133 lb Most Recent Monitor Data Heart Rate from ECG 74 NIBP 111/66 NIBP BP-Mean 81 Respiration from ECG 19 SpO2 98 I&O: 10/04/20 10/05/20 10/06/20 06:59 06:59 06:59 Intake Total 540 Output Total 3350 2600 Balance -3349 -2059 Result Diagrams: 10/04/20 05:38 10/02/20 03:32 Hospitalist ROS - Review of Systems ROS unobtainable: due to mental status - Medication Medications: Active Medications Generic Name Dose Route Start Last Admin Trade Name Linda PRN Reason Stop Dose Admin Apixaban 5 mg 10/02/20 09:00 10/04/20 20:59 Apixaban 5 Mg Tab PO 5 mg BID GHADA Administration Aspirin 81 mg 10/02/20 09:00 10/04/20 09:40 Aspirin 81 Mg Enteric Coated Tablet PO 81 mg DAILY GHADA Administration Calcium/Vitamin D 1 tab 10/01/20 08:00 10/04/20 16:33 Calcium Carbonate 600 Mg + Vit D Tab PO 1 tab BID-WM GHADA Administration Cyanocobalamin 1,000 mcg 10/01/20 09:00 10/04/20 09:40 Cyanocobalamin (Vitamin B-12) 1,000 Mcg Tab PO 1,000 mcg DAILY GHADA Administration Donepezil HCl 10 mg 10/02/20 21:00 10/04/20 20:58 Donepezil Hcl 10 Mg Tab PO 10 mg HS GHADA Administration Fluconazole 100 mg 10/04/20 09:00 10/04/20 09:40 Fluconazole 100 Mg Tab PO 100 mg DAILY GHADA Administration Ceftriaxone Sodium 2 gm/ 100 mls @ 200 mls/hr 09/30/20 22:00 10/04/20 22:12 Sodium Chloride IVPB 100 mls Q24HR GHADA Administration Levothyroxine Sodium 25 mcg 10/03/20 06:00 10/05/20 05:36 Levothyroxine Sodium 25 Mcg Tab PO 25 mcg 0600 GHADA Administration Memantine 10 mg 10/02/20 09:00 10/04/20 20:59 Memantine Hcl 10 Mg Tab PO 10 mg BID GHADA Administration Metoprolol Succinate 75 mg 10/02/20 09:00 10/04/20 09:39 Metoprolol Succinate Xl 50 Mg Tab PO 75 mg DAILY GHADA Administration Olanzapine 2.5 mg 10/02/20 09:00 10/04/20 20:59 Olanzapine 2.5 Mg Tab PO 2.5 mg BID GHADA Administration Pantoprazole Sodium 40 mg 09/30/20 21:00 10/04/20 20:59 Pantoprazole 40 Mg Vial IVP 40 mg Q12HR GHADA Administration Polyethylene Glycol 17 gm 10/02/20 09:00 10/04/20 09:39 Polyethylene Glycol 3350 17 Gm Packet PO 17 gm DAILY GHADA Administration Saccharomyces Boulardii 250 mg 10/01/20 09:00 10/04/20 09:40 Saccharomyces Boulardii 250 Mg Cap PO 250 mg DAILY GHADA Administration Senna/Docusate Sodium 2 tab 10/01/20 09:00 10/04/20 20:58 Senokot S 8.6-50 Mg Tab PO 2 tab BID GHADA Administration Tamsulosin HCl 0.4 mg 10/03/20 09:00 10/04/20 09:40 Tamsulosin Hcl 0.4 Mg Cap PO 0.4 mg DAILY GHADA Administration Temazepam 30 mg 10/02/20 21:00 10/04/20 20:58 Temazepam 15 Mg Cap PO 30 mg HS GHADA Administration - Exam General Appearance: NAD, awake alert ENT: moist mucosa Heart: RRR, no murmur, no gallops, no rubs Respiratory: CTAB, no wheezes, no rales, no ronchi Gastrointestinal: soft, non-tender, non-distended, normal bowel sounds Extremities: no edema Psychiatric: normal affect, normal behavior Hosp A/P - Plan (1) UTI (urinary tract infection) Status: Acute Plan: Presumptive Taniya spp, continue Diflucan, d/c Rocephin (2) Sepsis Code(s): A41.9 - SEPSIS, UNSPECIFIED ORGANISM Status: Resolved Qualifiers: Sepsis type: sepsis due to unspecified organism Plan: Resolving, continue supportive mgmt (3) Acute encephalopathy Code(s): G93.40 - ENCEPHALOPATHY, UNSPECIFIED Status: Acute Plan: Improved, supportive mgmt (4) Anticoagulant long-term use Code(s): Z79.01 - RETIREMENT (CURRENT) USE OF ANTICOAGULANTS Status: Chronic (5) Atrial fibrillation Code(s): I48.91 - UNSPECIFIED ATRIAL FIBRILLATION Status: Chronic (6) Hypothyroidism Code(s): E03.9 - HYPOTHYROIDISM, UNSPECIFIED Status: Chronic Qualifiers: Hypothyroidism type: unspecified Qualified Code(s): E03.9 - Hypothyroidism, unspecified (7) Fecal impaction resolved (8) Anemia- multifactoral - Plan continue antibiotics, PT/OT, group social worker, out of bed/ambulate, DVT proph w/SCDs Consults: Palliative Care Stable currently Continue Diflucan 100mg po daily OOB with PT Continue Metoprolol/Eliquis Appreciate GI assistance Continue daily Miralax Start Flomax 0.4mg daily Franklin catheter replaced 10/03/20 Saline lock IVF's Awaiting placement by case management
[2020-10-05] MEDS: Saccharomyces boulardii 250 MG CAP PO SCH (09:15)
[2020-10-05] MEDS: OLANZapine 2.5 MG TAB PO SCH ×2 (09:15→19:57)
[2020-10-05] MEDS: Cyanocobalamin (Vitamin B-12) 1,000 MCG TAB PO SCH (09:15)
[2020-10-05] MEDS: Aspirin 81 mg Enteric Coated Tablet PO SCH (09:15)
[2020-10-05] MEDS: Fluconazole 100 MG TAB PO SCH (09:15)
[2020-10-05] MEDS: Tamsulosin HCl 0.4 MG CAP PO SCH (09:15)
[2020-10-05] MEDS: Senokot S 8.6-50 MG TAB PO SCH ×2 (09:15→19:55)
[2020-10-05] MEDS: Calcium Carbonate 600 MG + Vit D TAB PO SCH ×2 (09:15→16:52)
[2020-10-05] MEDS: Polyethylene Glycol 3350 17 GM Packet PO SCH (09:16)
[2020-10-05] MEDS: Pantoprazole 40 MG VIAL IVP SCH ×2 (09:16→19:55)
[2020-10-05] MEDS: Apixaban 5 MG TAB PO SCH ×2 (09:16→19:54)
[2020-10-05] MEDS: Temazepam 15 MG CAP PO SCH (19:54)
[2020-10-05] MEDS: Donepezil HCl 10 MG TAB PO SCH (19:55)
[2020-10-06] MEDS: Levothyroxine Sodium 25 MCG TAB PO SCH (05:35)
[2020-10-06] MEDS: Cyanocobalamin (Vitamin B-12) 1,000 MCG TAB PO SCH (08:40)
[2020-10-06] MEDS: Saccharomyces boulardii 250 MG CAP PO SCH (08:40)
[2020-10-06] MEDS: Tamsulosin HCl 0.4 MG CAP PO SCH (08:41)
[2020-10-06] MEDS: Calcium Carbonate 600 MG + Vit D TAB PO SCH ×2 (08:41→16:39)
[2020-10-06] MEDS: Aspirin 81 mg Enteric Coated Tablet PO SCH (08:41)
[2020-10-06] MEDS: Fluconazole 100 MG TAB PO SCH (08:41)
[2020-10-06] MEDS: Senokot S 8.6-50 MG TAB PO SCH ×2 (08:41→20:25)
[2020-10-06] MEDS: Pantoprazole 40 MG VIAL IVP SCH ×2 (08:41→20:25)
[2020-10-06] MEDS: Polyethylene Glycol 3350 17 GM Packet PO SCH (08:41)
[2020-10-06] MEDS: OLANZapine 2.5 MG TAB PO SCH ×2 (08:41→20:25)
[2020-10-06] MEDS: Apixaban 5 MG TAB PO SCH ×2 (08:41→20:24)
--- NOTE | 2020-10-06 15:15 | PDOC.HOSPP ---
- Subjective Encounter Date: 10/06/20 Encounter Time: 15:15 Subjective: f/u s/p fecal disimpaction now resolved. Advanced dementia and pending return to Assisted Living in [place]. Nursing reports pt in 1 wrist restraint as she was pullling out her IV's. - Objective Vital Signs & Weight: Vital Signs (12 hours) Temp Pulse Resp BP Pulse Ox 10/06/20 08:45 98 10/06/20 08:20 97.7 F 77 20 120/76 98 Weight Weight 133 lb Most Recent Monitor Data Heart Rate from ECG 74 NIBP 111/66 NIBP BP-Mean 81 Respiration from ECG 19 SpO2 98 I&O: 10/05/20 10/06/20 10/07/20 06:59 06:59 06:59 Intake Total 540 1100 Output Total 2600 3000 Balance -2059 Result Diagrams: 10/04/20 05:38 10/02/20 03:32 Additional Labs: Microbiology 09/30/20 18:53 Urine mann catheter Urine Culture - Final Presumptive Taniya albicans 09/25/20 14:26 Urine clean catch Urine Culture - Final Presumptive Taniya albicans 09/06/20 10:37 Venous blood - Right Hand Blood Culture - Preliminary NO GROWTH AT 48 HOURS 09/06/20 10:27 Venous blood - Left Hand Blood Culture - Preliminary NO GROWTH AT 48 HOURS Laboratory Tests 09/06/20 09/06/20 09/07/20 10:00 10:37 06:07 Sodium 132 L Potassium 3.7 3.4 L TSH 3rd Generation SARS-CoV-2 (PCR) SARS-CoV-2 Rap RNA(RT-PCR) DETECTED A* 09/07/20 09/30/20 06:07 22:40 Sodium Potassium TSH 3rd Generation 19.3184 H SARS-CoV-2 (PCR) Not Detected SARS-CoV-2 Rap RNA(RT-PCR) Hospitalist ROS - Medication Medications: Active Medications Generic Name Dose Route Start Last Admin Trade Name Freq PRN Reason Stop Dose Admin Apixaban 5 mg 10/02/20 09:00 10/06/20 08:41 Apixaban 5 Mg Tab PO 5 mg BID GHADA Administration Aspirin 81 mg 10/02/20 09:00 10/06/20 08:41 Aspirin 81 Mg Enteric Coated Tablet PO 81 mg DAILY GHADA Administration Calcium/Vitamin D 1 tab 10/01/20 08:00 10/06/20 08:41 Calcium Carbonate 600 Mg + Vit D Tab PO 1 tab BID-WM GHADA Administration Cyanocobalamin 1,000 mcg 10/01/20 09:00 10/06/20 08:40 Cyanocobalamin (Vitamin B-12) 1,000 Mcg Tab PO 1,000 mcg DAILY GHADA Administration Donepezil HCl 10 mg 10/02/20 21:00 10/05/20 19:55 Donepezil Hcl 10 Mg Tab PO 10 mg HS GHADA Administration Fluconazole 100 mg 10/04/20 09:00 10/06/20 08:41 Fluconazole 100 Mg Tab PO 100 mg DAILY GHADA Administration Levothyroxine Sodium 25 mcg 10/03/20 06:00 10/06/20 05:35 Levothyroxine Sodium 25 Mcg Tab PO 25 mcg 0600 GHADA Administration Memantine 10 mg 10/02/20 09:00 10/06/20 08:40 Memantine Hcl 10 Mg Tab PO 10 mg BID GHADA Administration Metoprolol Succinate 75 mg 10/02/20 09:00 10/06/20 08:40 Metoprolol Succinate Xl 50 Mg Tab PO 75 mg DAILY GHADA Administration Olanzapine 2.5 mg 10/02/20 09:00 10/06/20 08:41 Olanzapine 2.5 Mg Tab PO 2.5 mg BID GHADA Administration Pantoprazole Sodium 40 mg 09/30/20 21:00 10/06/20 08:41 Pantoprazole 40 Mg Vial IVP 40 mg Q12HR GHADA Administration Polyethylene Glycol 17 gm 10/02/20 09:00 10/06/20 08:41 Polyethylene Glycol 3350 17 Gm Packet PO 17 gm DAILY GHADA Administration Saccharomyces Boulardii 250 mg 10/01/20 09:00 10/06/20 08:40 Saccharomyces Boulardii 250 Mg Cap PO 250 mg DAILY GHADA Administration Senna/Docusate Sodium 2 tab 10/01/20 09:00 10/06/20 08:41 Senokot S 8.6-50 Mg Tab PO 2 tab BID GHADA Administration Tamsulosin HCl 0.4 mg 10/03/20 09:00 10/06/20 08:41 Tamsulosin Hcl 0.4 Mg Cap PO 0.4 mg DAILY GHADA Administration Temazepam 30 mg 10/02/20 21:00 10/05/20 19:54 Temazepam 15 Mg Cap PO 30 mg HS GHADA Administration - Exam General Appearance: NAD, awake alert Eye: PERRL, anicteric sclera ENT: normocephalic atraumatic, no oropharyngeal lesions Neck: supple, symmetric, no JVD, no thyromegaly, no lymphadenopathy Heart: RRR, no gallops, no rubs, normal peripheral pulses Heart - other findings: S1, S2 Respiratory: CTAB, no wheezes, no rales, no ronchi, normal chest expansion, no tachypnea Gastrointestinal: soft, non-tender, non-distended, normal bowel sounds, no palpable masses Extremities: no cyanosis, no clubbing, no edema Skin: normal turgor, no lesions Neurological: cranial nerve grossly intact, no new deficit Musculoskeletal: normal tone, generalized weakness Psychiatric: oriented to person, somnolent Hosp A/P (1) UTI (urinary tract infection) Status: Acute Plan: Taniya spp isolated, continue Diflucan another 24h then d/c (2) Sepsis Code(s): A41.9 - SEPSIS, UNSPECIFIED ORGANISM Status: Acute Qualifiers: Sepsis type: sepsis due to unspecified organism (3) Acute encephalopathy Code(s): G93.40 - ENCEPHALOPATHY, UNSPECIFIED Status: Acute Plan: Likely multifactorial, baseline mental status currently (4) Anticoagulant long-term use Code(s): Z79.01 - [facility] (CURRENT) USE OF ANTICOAGULANTS Status: Chronic (5) Atrial fibrillation Code(s): I48.91 - UNSPECIFIED ATRIAL FIBRILLATION Status: Chronic (6) Hypothyroidism Code(s): E03.9 - HYPOTHYROIDISM, UNSPECIFIED Status: Chronic Qualifiers: Hypothyroidism type: unspecified Qualified Code(s): E03.9 - Hypothyroidism, unspecified (7) Dementia Code(s): F03.90 - UNSPECIFIED DEMENTIA WITHOUT BEHAVIORAL DISTURBANCE Status: Chronic Qualifiers: Dementia type: unspecified type Dementia behavioral disturbance: without behavioral disturbance Qualified Code(s): F03.90 - Unspecified dementia without behavioral disturbance Plan: Likely Alzheimer's type, continue Aricept/Namenda, supportive mgmt, placement in memory care unit pending - Plan PT/OT, long term care social worker, out of bed/ambulate, DVT proph w/SCDs Stable currently Continue Diflucan 100mg po another 24h OOB with PT Continue Metoprolol/Eliquis Appreciate GI assistance Start Flomax 0.4mg daily Mann catheter replaced 10/03/20, consider wean Saline lock IVF's Family interested in local Memory Care Unit in [facility] region
[2020-10-06] MEDS: Donepezil HCl 10 MG TAB PO SCH (20:24)
[2020-10-06] MEDS: Temazepam 15 MG CAP PO SCH (20:25)
[2020-10-07] MEDS: Levothyroxine Sodium 25 MCG TAB PO SCH (05:50)
[2020-10-07] MEDS: OLANZapine 2.5 MG TAB PO SCH ×2 (08:44→20:27)
[2020-10-07] MEDS: Calcium Carbonate 600 MG + Vit D TAB PO SCH ×2 (08:45→17:14)
[2020-10-07] MEDS: Tamsulosin HCl 0.4 MG CAP PO SCH (08:45)
[2020-10-07] MEDS: Aspirin 81 mg Enteric Coated Tablet PO SCH (08:45)
[2020-10-07] MEDS: Apixaban 5 MG TAB PO SCH ×2 (08:45→20:27)
[2020-10-07] MEDS: Saccharomyces boulardii 250 MG CAP PO SCH (08:45)
[2020-10-07] MEDS: Fluconazole 100 MG TAB PO SCH (08:45)
[2020-10-07] MEDS: Pantoprazole 40 MG VIAL IVP SCH ×2 (08:46→20:28)
[2020-10-07] MEDS: Cyanocobalamin (Vitamin B-12) 1,000 MCG TAB PO SCH (08:46)
[2020-10-07] MEDS: Polyethylene Glycol 3350 17 GM Packet PO SCH (08:47)
[2020-10-07] MEDS: Senokot S 8.6-50 MG TAB PO SCH ×2 (08:47→20:28)
--- NOTE | 2020-10-07 17:47 | PDOC.HOSPP ---
- Subjective Encounter Date: 10/07/20 Encounter Time: 17:00 Subjective: f/u for advanced dementia/s/p fecal disimpaction/urinary retention. Overall doing ok but remains in 2-wrist restraints. Awaiting memory care unit locally to approve transfer. - Objective Vital Signs & Weight: Vital Signs (12 hours) Temp Pulse Resp BP Pulse Ox 10/07/20 08:00 96 10/07/20 07:54 98.7 F 70 18 136/71 96 Weight Weight 133 lb Most Recent Monitor Data Heart Rate from ECG 74 NIBP 111/66 NIBP BP-Mean 81 Respiration from ECG 19 SpO2 98 I&O: 10/06/20 10/07/20 10/08/20 06:59 06:59 06:59 Intake Total 1100 270 720 Output Total 3000 1350 450 Balance -1900 -1080 270 Result Diagrams: 10/04/20 05:38 10/02/20 03:32 Additional Labs: Microbiology 09/30/20 18:53 Urine mann catheter Urine Culture - Final Presumptive Taniya albicans 09/25/20 14:26 Urine clean catch Urine Culture - Final Presumptive Taniya albicans 09/06/20 10:37 Venous blood - Right Hand Blood Culture - Preliminary NO GROWTH AT 48 HOURS 09/06/20 10:27 Venous blood - Left Hand Blood Culture - Preliminary NO GROWTH AT 48 HOURS Laboratory Tests 09/06/20 09/06/20 09/07/20 10:00 10:37 06:07 Sodium 132 L Potassium 3.7 3.4 L TSH 3rd Generation SARS-CoV-2 (PCR) SARS-CoV-2 Rap RNA(RT-PCR) DETECTED A* 09/07/20 09/30/20 06:07 22:40 Sodium Potassium TSH 3rd Generation 19.3184 H SARS-CoV-2 (PCR) Not Detected SARS-CoV-2 Rap RNA(RT-PCR) Hospitalist ROS - Medication Medications: Active Medications Generic Name Dose Route Start Last Admin Trade Name Freq PRN Reason Stop Dose Admin Acetaminophen 650 mg 09/30/20 21:11 10/06/20 20:27 Acetaminophen 325 Mg Tab PO 650 mg Q4H PRN Administration Headache/Fever/Mild Pain (1-3) Apixaban 5 mg 10/02/20 09:00 10/07/20 08:45 Apixaban 5 Mg Tab PO 5 mg BID GHADA Administration Aspirin 81 mg 10/02/20 09:00 10/07/20 08:45 Aspirin 81 Mg Enteric Coated Tablet PO 81 mg DAILY GHADA Administration Calcium/Vitamin D 1 tab 10/01/20 08:00 10/07/20 17:14 Calcium Carbonate 600 Mg + Vit D Tab PO 1 tab BID-WM GHADA Administration Cyanocobalamin 1,000 mcg 10/01/20 09:00 10/07/20 08:46 Cyanocobalamin (Vitamin B-12) 1,000 Mcg Tab PO 1,000 mcg DAILY GHADA Administration Donepezil HCl 10 mg 10/02/20 21:00 10/06/20 20:24 Donepezil Hcl 10 Mg Tab PO 10 mg HS GHADA Administration Fluconazole 100 mg 10/04/20 09:00 10/07/20 08:45 Fluconazole 100 Mg Tab PO 100 mg DAILY GHADA Administration Levothyroxine Sodium 25 mcg 10/03/20 06:00 10/07/20 05:50 Levothyroxine Sodium 25 Mcg Tab PO 25 mcg 0600 GHADA Administration Memantine 10 mg 10/02/20 09:00 10/07/20 08:45 Memantine Hcl 10 Mg Tab PO 10 mg BID GHADA Administration Metoprolol Succinate 75 mg 10/02/20 09:00 10/07/20 08:46 Metoprolol Succinate Xl 50 Mg Tab PO 75 mg DAILY GHADA Administration Olanzapine 2.5 mg 10/02/20 09:00 10/07/20 08:44 Olanzapine 2.5 Mg Tab PO 2.5 mg BID GHADA Administration Pantoprazole Sodium 40 mg 09/30/20 21:00 10/07/20 08:46 Pantoprazole 40 Mg Vial IVP 40 mg Q12HR GHADA Administration Polyethylene Glycol 17 gm 10/02/20 09:00 10/07/20 08:47 Polyethylene Glycol 3350 17 Gm Packet PO 17 gm DAILY GHADA Administration Saccharomyces Boulardii 250 mg 10/01/20 09:00 10/07/20 08:45 Saccharomyces Boulardii 250 Mg Cap PO 250 mg DAILY GHADA Administration Senna/Docusate Sodium 2 tab 10/01/20 09:00 10/07/20 08:47 Senokot S 8.6-50 Mg Tab PO Not Given BID GHADA Tamsulosin HCl 0.4 mg 10/03/20 09:00 10/07/20 08:45 Tamsulosin Hcl 0.4 Mg Cap PO 0.4 mg DAILY GHADA Administration Temazepam 30 mg 10/02/20 21:00 10/06/20 20:25 Temazepam 15 Mg Cap PO 30 mg HS GHADA Administration - Exam General Appearance: NAD, awake alert Eye: PERRL, anicteric sclera ENT: normocephalic atraumatic, no oropharyngeal lesions Neck: supple, symmetric, no JVD, no thyromegaly, no lymphadenopathy Heart: RRR, no gallops, no rubs, normal peripheral pulses Heart - other findings: S1, S2 Respiratory: CTAB, no wheezes, no rales, no ronchi, normal chest expansion, no tachypnea Gastrointestinal: soft, non-tender, non-distended, normal bowel sounds, no palpable masses Extremities: no cyanosis, no clubbing, no edema Skin: normal turgor Neurological: cranial nerve grossly intact, no new deficit Musculoskeletal: normal tone, generalized weakness Psychiatric: oriented to person, flat affect Hosp A/P (1) UTI (urinary tract infection) Status: Acute Plan: Continue Diflucan another 24h, Taniya spp isolated (2) Sepsis Code(s): A41.9 - SEPSIS, UNSPECIFIED ORGANISM Status: Acute Qualifiers: Sepsis type: sepsis due to unspecified organism Plan: Resolving (3) Acute encephalopathy Code(s): G93.40 - ENCEPHALOPATHY, UNSPECIFIED Status: Acute Plan: Improved, likely advanced dementia as main component currently (4) Anticoagulant long-term use Code(s): Z79.01 - 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 OF ANTICOAGULANTS Status: Chronic (5) Atrial fibrillation Code(s): I48.91 - UNSPECIFIED ATRIAL FIBRILLATION Status: Chronic (6) Hypothyroidism Code(s): E03.9 - HYPOTHYROIDISM, UNSPECIFIED Status: Chronic Qualifiers: Hypothyroidism type: unspecified Qualified Code(s): E03.9 - Hypothyroidism, unspecified (7) Dementia Code(s): F03.90 - UNSPECIFIED DEMENTIA WITHOUT BEHAVIORAL DISTURBANCE Status: Chronic Qualifiers: Dementia type: unspecified type Dementia behavioral disturbance: without behavioral disturbance Qualified Code(s): F03.90 - Unspecified dementia without behavioral disturbance Plan: Advanced, awaiting approval for transfer to local memory care unit - Plan PT/OT, social work specialist, out of bed/ambulate, DVT proph w/SCDs Stable currently Continue Diflucan 100mg po another 24h OOB with PT Continue Metoprolol/Eliquis Appreciate GI assistance Start Flomax 0.4mg daily Mann catheter replaced 10/03/20, consider wean Saline lock IVF's Family interested in local Memory Care Unit in [facility]
[2020-10-07] MEDS: Temazepam 15 MG CAP PO SCH (20:27)
[2020-10-07] MEDS: Donepezil HCl 10 MG TAB PO SCH (20:27)
[2020-10-08] MEDS: Levothyroxine Sodium 25 MCG TAB PO SCH (05:12)
[2020-10-08] MEDS: Tamsulosin HCl 0.4 MG CAP PO SCH (08:44)
[2020-10-08] MEDS: Aspirin 81 mg Enteric Coated Tablet PO SCH (08:44)
[2020-10-08] MEDS: Saccharomyces boulardii 250 MG CAP PO SCH (08:44)
[2020-10-08] MEDS: Apixaban 5 MG TAB PO SCH ×2 (08:44→20:36)
[2020-10-08] MEDS: Calcium Carbonate 600 MG + Vit D TAB PO SCH ×2 (08:44→17:37)
[2020-10-08] MEDS: Fluconazole 100 MG TAB PO SCH (08:44)
[2020-10-08] MEDS: Cyanocobalamin (Vitamin B-12) 1,000 MCG TAB PO SCH (08:44)
[2020-10-08] MEDS: Polyethylene Glycol 3350 17 GM Packet PO SCH (08:45)
[2020-10-08] MEDS: Senokot S 8.6-50 MG TAB PO SCH ×2 (08:45→20:37)
[2020-10-08] MEDS: OLANZapine 2.5 MG TAB PO SCH ×2 (08:45→20:37)
[2020-10-08] MEDS: Pantoprazole 40 MG VIAL IVP SCH (08:48)
[2020-10-08] MEDS ORDERED: Labetalol HCl 100 MG/20 ML VIAL ONE (09:02)
--- NOTE | 2020-10-08 12:29 | PDOC.HOSPP ---
- Subjective Encounter Date: 10/08/20 Encounter Time: 12:20 Subjective: f/u for advanced dementia/fecal impaction remaining stable per nursing. Still in wrist restraints due to pulling out IV and trying to climb out of bed. - Objective Vital Signs & Weight: Vital Signs (12 hours) Temp Pulse Resp BP BP Pulse Ox 10/08/20 11:51 97.9 F 77 20 138/86 98 10/08/20 11:32 70 10/08/20 11:26 125/77 10/08/20 08:23 98.0 F 70 20 95/59 L 94 L 10/08/20 08:00 94 L Weight Weight 133 lb Most Recent Monitor Data Heart Rate from ECG 74 NIBP 111/66 NIBP BP-Mean 81 Respiration from ECG 19 SpO2 98 I&O: 10/07/20 10/08/20 10/09/20 06:59 06:59 06:59 Intake Total 270 1360 Output Total 1350 1475 Balance -1080 -115 Result Diagrams: 10/04/20 05:38 10/02/20 03:32 Additional Labs: Microbiology 09/30/20 18:53 Urine mann catheter Urine Culture - Final Presumptive Taniya albicans 09/25/20 14:26 Urine clean catch Urine Culture - Final Presumptive Taniya albicans 09/06/20 10:37 Venous blood - Right Hand Blood Culture - Preliminary NO GROWTH AT 48 HOURS 09/06/20 10:27 Venous blood - Left Hand Blood Culture - Preliminary NO GROWTH AT 48 HOURS Laboratory Tests 09/06/20 09/06/20 09/07/20 10:00 10:37 06:07 Sodium 132 L Potassium 3.7 3.4 L TSH 3rd Generation SARS-CoV-2 (PCR) SARS-CoV-2 Rap RNA(RT-PCR) DETECTED A* 09/07/20 09/30/20 06:07 22:40 Sodium Potassium TSH 3rd Generation 19.3184 H SARS-CoV-2 (PCR) Not Detected SARS-CoV-2 Rap RNA(RT-PCR) Hospitalist ROS - Medication Medications: Active Medications Generic Name Dose Route Start Last Admin Trade Name Freq PRN Reason Stop Dose Admin Acetaminophen 650 mg 09/30/20 21:11 10/06/20 20:27 Acetaminophen 325 Mg Tab PO 650 mg Q4H PRN Administration Headache/Fever/Mild Pain (1-3) Apixaban 5 mg 10/02/20 09:00 10/08/20 08:44 Apixaban 5 Mg Tab PO 5 mg BID GHADA Administration Aspirin 81 mg 10/02/20 09:00 10/08/20 08:44 Aspirin 81 Mg Enteric Coated Tablet PO 81 mg DAILY GHADA Administration Calcium/Vitamin D 1 tab 10/01/20 08:00 10/08/20 08:44 Calcium Carbonate 600 Mg + Vit D Tab PO 1 tab BID-WM GHADA Administration Cyanocobalamin 1,000 mcg 10/01/20 09:00 10/08/20 08:44 Cyanocobalamin (Vitamin B-12) 1,000 Mcg Tab PO 1,000 mcg DAILY GHADA Administration Donepezil HCl 10 mg 10/02/20 21:00 10/07/20 20:27 Donepezil Hcl 10 Mg Tab PO 10 mg HS GHADA Administration Fluconazole 100 mg 10/04/20 09:00 10/08/20 08:44 Fluconazole 100 Mg Tab PO 100 mg DAILY GHADA Administration Levothyroxine Sodium 25 mcg 10/03/20 06:00 10/08/20 05:12 Levothyroxine Sodium 25 Mcg Tab PO 25 mcg 0600 GHADA Administration Memantine 10 mg 10/02/20 09:00 10/08/20 08:44 Memantine Hcl 10 Mg Tab PO 10 mg BID GHADA Administration Metoprolol Succinate 75 mg 10/02/20 09:00 10/08/20 08:48 Metoprolol Succinate Xl 50 Mg Tab PO Not Given DAILY GHADA Olanzapine 2.5 mg 10/02/20 09:00 10/08/20 08:45 Olanzapine 2.5 Mg Tab PO 2.5 mg BID GHADA Administration Polyethylene Glycol 17 gm 10/02/20 09:00 10/08/20 08:45 Polyethylene Glycol 3350 17 Gm Packet PO Not Given DAILY GHADA Saccharomyces Boulardii 250 mg 10/01/20 09:00 10/08/20 08:44 Saccharomyces Boulardii 250 Mg Cap PO 250 mg DAILY GHADA Administration Senna/Docusate Sodium 2 tab 10/01/20 09:00 10/08/20 08:45 Senokot S 8.6-50 Mg Tab PO Not Given BID GHADA Tamsulosin HCl 0.4 mg 10/03/20 09:00 10/08/20 08:44 Tamsulosin Hcl 0.4 Mg Cap PO 0.4 mg DAILY GHADA Administration Temazepam 30 mg 10/02/20 21:00 10/07/20 20:27 Temazepam 15 Mg Cap PO 30 mg HS GHADA Administration - Exam General Appearance: NAD General - other findings: sleepy Eye: PERRL, anicteric sclera ENT: normocephalic atraumatic, no oropharyngeal lesions Neck: supple, symmetric, no JVD, no thyromegaly, no lymphadenopathy Heart: RRR, no gallops, no rubs, normal peripheral pulses Heart - other findings: S1, S2 Respiratory: CTAB, no wheezes, no rales, no ronchi, normal chest expansion, no tachypnea Gastrointestinal: soft, non-tender, non-distended, normal bowel sounds, no palpable masses Extremities: no cyanosis, no clubbing, no edema Skin: normal turgor, no lesions Neurological: cranial nerve grossly intact, no new deficit Musculoskeletal: normal tone, generalized weakness Psychiatric: oriented to person, somnolent, lethargic Hosp A/P (1) UTI (urinary tract infection) Status: Acute Plan: Taniya spp isolated, completed course of Diflucan (2) Sepsis Code(s): A41.9 - SEPSIS, UNSPECIFIED ORGANISM Status: Acute Qualifiers: Sepsis type: sepsis due to unspecified organism Plan: Resolved (3) Acute encephalopathy Code(s): G93.40 - ENCEPHALOPATHY, UNSPECIFIED Status: Acute (4) Anticoagulant long-term use Code(s): 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: Chronic (5) Atrial fibrillation Code(s): I48.91 - UNSPECIFIED ATRIAL FIBRILLATION Status: Chronic (6) Hypothyroidism Code(s): E03.9 - HYPOTHYROIDISM, UNSPECIFIED Status: Chronic Qualifiers: Hypothyroidism type: unspecified Qualified Code(s): E03.9 - Hypothyroidism, unspecified (7) Dementia Code(s): F03.90 - UNSPECIFIED DEMENTIA WITHOUT BEHAVIORAL DISTURBANCE Status: Chronic Qualifiers: Dementia type: unspecified type Dementia behavioral disturbance: without behavioral disturbance Qualified Code(s): F03.90 - Unspecified dementia without behavioral disturbance Plan: Advanced, awaiting placement at local memory care unit - Plan PT/OT, manager social services, out of bed/ambulate, DVT proph w/SCDs Stable currently D/C Diflucan OOB with PT Continue Metoprolol/Eliquis Appreciate GI assistance Start Flomax 0.4mg daily Mann catheter replaced 10/03/20, consider wean Saline lock IVF's Family interested in local Memory Care Unit in [facility] region
[2020-10-08] MEDS: Donepezil HCl 10 MG TAB PO SCH (20:36)
[2020-10-08] MEDS: Temazepam 15 MG CAP PO SCH (20:37)
[2020-10-09] MEDS: Levothyroxine Sodium 25 MCG TAB PO SCH (05:39)
[2020-10-09] MEDS: Saccharomyces boulardii 250 MG CAP PO SCH (08:42)
[2020-10-09] MEDS: Senokot S 8.6-50 MG TAB PO SCH ×2 (08:42→08:47)
[2020-10-09] MEDS: Calcium Carbonate 600 MG + Vit D TAB PO SCH ×2 (08:42→16:43)
[2020-10-09] MEDS: Cyanocobalamin (Vitamin B-12) 1,000 MCG TAB PO SCH (08:42)
[2020-10-09] MEDS: Aspirin 81 mg Enteric Coated Tablet PO SCH (08:43)
[2020-10-09] MEDS: Apixaban 5 MG TAB PO SCH (08:43)
[2020-10-09] MEDS: Tamsulosin HCl 0.4 MG CAP PO SCH (08:43)
[2020-10-09] MEDS: OLANZapine 2.5 MG TAB PO SCH (08:43)
[2020-10-09] MEDS: Polyethylene Glycol 3350 17 GM Packet PO SCH (08:44)
--- NOTE | 2020-10-09 11:21 | DIS ---
DATE OF ADMISSION: 09/30/2020 DATE OF DISCHARGE: 10/09/2020 DISCHARGE DIAGNOSES: 1. Urinary tract infection, Taniya species isolated, resolved. 2. Sepsis suspected, organism not identified, resolved. 3. Acute metabolic encephalopathy, improved. 4. Chronic anticoagulation. 5. Chronic atrial fibrillation. 6. Hypothyroidism, chronic. 7. Dementia, advanced, likely Alzheimer's type. 8. Fecal impaction, status post disimpaction. CONSULTATION: Dr. Andujar with GI Service. PERTINENT LABORATORY AND X-RAY FINDINGS: Potassium ranged between 2.6 to 4.2, phosphorus 2.6, magnesium 1.6. Serum iron level 34, TIBC 163, ferritin 435. Albumin ranged between 2.7 to 3.0. Vitamin B12 level 288, folate level 5.90. CBC showed a white blood cell count ranging between 11.2 to 15.0, hemoglobin ranged between 9.8 to 10.6. PT 24.0, INR 2.1. COVID-19 PCR not detected on 09/30/2020. Urine culture dated 09/30/2020, showed greater than 100,000 colonies of presumptive Taniya albicans. CT of the abdomen and pelvis dated 09/30/2020, showed bilateral moderate hydroureteronephrosis due to severely distended urinary bladder. Fecal rectal stool impaction. Abdominal radiographs dated 10/02/2020, showed nonspecific bowel gas pattern. HOSPITAL COURSE: The patient was initially admitted after presenting with questionable GI bleed. The patient apparently was noted with blood in her stool at the nursing facility, where she is a current resident in [place]. Hemoglobin in the emergency room was 10.3 with a previous value of 13.6 approximately 3 weeks prior to the admission. The patient underwent general evaluation including CT of the abdomen and pelvis showing fecal impaction. The patient was evaluated by the GI Service, undergoing fecal disimpaction at the bedside on 10/01/2020. The patient also received multiple stool softeners and bowel stimulants, and hemoglobin remained stable after the fecal disimpaction. The patient likely had bleeding at the rectal site due to the fecal impaction and no further intervention was recommended. The patient was also noted with encephalopathy type changes and meeting sepsis criteria secondary to suspected urinary tract infection in the context of urinary retention. A Franklin catheter was placed and the patient was placed on broad-spectrum IV antibiotic therapy. Urine culture did show Taniya species, at which point, the patient was treated with Diflucan for approximately 5 to 7 days. Overall, the patient did remain clinically stable, however, was noted with agitation and needed wrist restraints to avoid injury and pulling out IVs and Franklin catheters. The patient was resumed on her chronic medication for dementia and overall remained stable. The patient has been approved to return to [facility] in [place], [place] on 10/09/2020. I have examined the patient at the time of discharge and coordinated care for discharge planning. DISCHARGE MEDICATIONS: 1. Donepezil 10 mg p.o. at bedtime. 2. Enteric-coated aspirin 81 mg p.o. daily. 3. Eliquis 5 mg p.o. b.i.d. 4. Metoprolol succinate 75 mg p.o. daily. 5. Namenda 10 mg p.o. b.i.d. 6. Levothyroxine 25 mcg p.o. daily. 7. Temazepam 30 mg p.o. at bedtime. 8. Zyprexa 2.5 mg p.o. b.i.d. 9. Flomax 0.4 mg p.o. daily. FOLLOWUP: The patient may follow up with Dr. Mihai Noyola at [facility] in [place], [place]. CONDITION ON DISCHARGE: Fair. ACTIVITY: Ad leatha, rolling walker with standby assistance. DIET: Regular. CODE STATUS: Do not attempt resuscitation. DISPOSITION: Discharged to [facility] on 10/09/2020. Total time preparing and coordinating discharge, 34 minutes. Job ID: [id number]
[2020-10-09 18:45] VITALS: BP 138/80; TEMP 97.5
== END 2020-10-09 18:30 | disposition home or self-care (01) | DRG 871 ==
LOC: ERS 16:03 → IMCU/EMU 19:05 → T4-B 10-03 14:22
PROVIDERS: ADMIT Internal Medicine; ATTEND Internal Medicine
PROC: 0T9B70Z Drainage of Bladder with Drainage Device, Via Natural or Artificial Opening (ICD-10-PCS; principal; 2020-09-30)
DX: A41.9 Sepsis, unspecified organism (principal); G92 Toxic encephalopathy; B37.49 Other urogenital candidiasis; F02.81 Dementia in other diseases classified elsewhere, unspecified severity, with behavioral disturbance; D62 Acute posthemorrhagic anemia; N13.6 Pyonephrosis; E44.0 Moderate protein-calorie malnutrition; I48.21 Permanent atrial fibrillation; K62.5 Hemorrhage of anus and rectum; Z66 Do not resuscitate; K56.41 Fecal impaction; G30.9 Alzheimer's disease, unspecified; Z20.828 Contact with and (suspected) exposure to other viral communicable diseases; I12.9 Hypertensive chronic kidney disease with stage 1 through stage 4 chronic kidney disease, or unspecified chronic kidney disease; Z96.651 Presence of right artificial knee joint; R65.20 Severe sepsis without septic shock; F41.9 Anxiety disorder, unspecified; M19.90 Unspecified osteoarthritis, unspecified site; R33.9 Retention of urine, unspecified; E87.6 Hypokalemia; E83.42 Hypomagnesemia; N18.2 Chronic kidney disease, stage 2 (mild); E03.9 Hypothyroidism, unspecified; Z79.01 Long term (current) use of anticoagulants; Z78.1 Physical restraint status; Z28.21 Immunization not carried out because of patient refusal; Z95.0 Presence of cardiac pacemaker; Z90.49 Acquired absence of other specified parts of digestive tract; Z90.710 Acquired absence of both cervix and uterus; Z87.891 Personal history of nicotine dependence; Z86.19 Personal history of other infectious and parasitic diseases; Z68.22 Body mass index [BMI] 22.0-22.9, adult; Z88.2 Allergy status to sulfonamides; Z91.048 Other nonmedicinal substance allergy status; Z79.899 Other long term (current) drug therapy; Z79.890 Hormone replacement therapy
CPT/HCPCS: 36415; 51702; 74018; 74177; 80053; 81003; 81015; 82607; 82728; 82746; 83540; 83550; 83735; 84100; 85014; 85018; 85025; 85049; 85610; 85730; 86850; 86900; 86901; 87086; 87635; 93005; 94760; 96365; 96366; 96367; 96375; C9113; J0696; J3475; J3480; J3490; J7030; J7050; Q9967; U0003

== ENCOUNTER 2020-10-14 19:18 | Inpatient (IN) | payer MEDICARE, OTHER ==
[2020-10-14 20:53] LABS: Hemoglobin 6.6 g/dL (12.0-16.0); Mean Corpuscular HGB CONC 31.7 g/dL (32.0-36.0); Mean Corpuscular Volume 91.3 fL (78.0-98.0); Mean Platelet Volume 8.1 fL (7.4-10.4); Platelet Count 290 thou/uL (130-400); RBC Distribution Width 14.8 % (11.5-14.5); Red Blood Cell (RBC) Count 2.29 mill/uL (4.20-5.40); White Blood Cell (WBC) Count 20.7 thou/uL (4.8-10.8)
[2020-10-14 20:57] LABS: Band 6 % (5-11); Lymphocytes 8 % (21-51); MDiff Complete? YES; Monocytes 8 % (0-10); Neutrophil 78 % (42-75)
--- NOTE | 2020-10-14 20:57 | RAD ---
CHEST ONE VIEW: History: Hypotensive. Comparison: 09-06-2020 FINDINGS: Heart size and mediastinum are within normal limits. Calcified aorticopulmonary window node is noted. A pacemaker is present. Lungs are clear of any infiltrative process. Changes noted within the right base have resolved. IMPRESSION: No active intrathoracic disease. POS: JUMA
[2020-10-14 21:01] LABS: Bacteria/HPF 4+ HPF (None Seen); Bilirubin Negative (Negative); Blood, Urine 3+ (Negative); Clarity Turbid (Clear); Glucose, Urine (Dipstick) Normal (Negative); Ketone, Urine Negative (Negative); Leukocyte 500 Leu/uL (Negative); Nitrite Negative (Negative); Protein, Urine (Dipstick) 70 mg/dL (Neg-Trace); RBC/HPF Greater than 50 HPF (0-3); Specific Gravity, Urine 1.023 (1.002-1.036); Squamous Epithelial 0-3 HPF (0-3); WBC/HPF Greater than 50 HPF (0-3); pH, Urine 5.5 (5.0-9.0)
[2020-10-14 21:35] LABS: ALT (SGPT) 13 U/L (8-55); AST (SGOT) 18 U/L (5-34); Albumin 3.1 g/dL (3.4-4.8); Alkaline Phosphatase 70 U/L (40-110); Anion Gap 17 mmol/L (10-20); BUN (Urea Nitrogen) 34 mg/dL (9.8-20.1); Bilirubin, Total 0.4 mg/dL (0.2-1.2); Calc. Creatinine Clearance 0 mL/min (70-130); Calcium 7.4 mg/dL (7.8-10.44); Carbon Dioxide 21 mmol/L (23-31); Chloride 104 mmol/L (98-107); Globulin 2.4 g/dL (2.4-3.5); Glucose 109 mg/dL (83-110); Protein, Total 5.5 g/dL (6.0-8.3); Sodium 138 mmol/L (136-145)
[2020-10-14] MEDS ORDERED: cefTRIAXone\\ROCEPHIN 1 GM VIAL ONE (21:52)
[2020-10-14] MEDS ORDERED: Vancomycin 1 GM/200 ML BAG ONE (21:52)
[2020-10-14] MEDS ORDERED: cefTRIAXone\\ROCEPHIN 2 GM VIAL ONE (21:55)
--- NOTE | 2020-10-14 22:32 | PDOC.FPRHP ---
- History of Present Illness Chief Complaint: hypotension History of Present Illness: This is a 80yo F who presented to the ER, sent by HH when they took her BP and it was very low. She states that she has been having headaches. Denies dysuria, burning, frequency. On exam, patient unable to give additional history and does not always answer questions appropriately. She was axo to person only. Per ER record, patient has been feeling weak for a few days. She had no specific complaints to them. No recent fever, chills, NVD. She states she has been eating and drinking normally. She was given 500ml bolus of NS by EMS and her BP was improved somewhat on arrival. Attempted to call Next of kin [facility] with no response. ED Course: 2L NS bolus, Rocephin 2g, Vanc 1 g - Allergies/Adverse Reactions Allergies Allergy/AdvReac Type Severity Reaction Status Date / Time Sulfa (Sulfonamide Allergy Verified 10/01/20 02:23 Antibiotics) caffeine AdvReac Intermediate Anxiety Verified 10/01/20 02:23 - Home Medications Medication Instructions Recorded Confirmed Type Donepezil HCl 10 mg PO HS 06/30/20 10/01/20 History Apixaban [Eliquis] 5 mg PO BID 09/06/20 10/01/20 History Aspirin [Ecotrin Low Strength] 1 tab PO DAILY 09/06/20 10/01/20 History Levothyroxine Sodium [Synthroid] 25 mcg PO 0600 09/06/20 10/01/20 History Memantine HCl [Namenda] 10 mg PO BID 09/06/20 10/01/20 History Metoprolol Succinate 1.5 tab PO DAILY 09/06/20 10/01/20 History OLANZapine [ZyPREXA] 1 tablet PO BID 09/06/20 10/01/20 History Temazepam 2 tablet PO HS 09/06/20 10/01/20 History Tamsulosin HCl [Flomax] 0.4 mg PO DAILY cap 10/09/20 Rx - History PMHx: chronic back pain, diverticulosis, HTN, NEGRITA, Hypothyroidis, afib, dementia PSHx: cholecystectomy, hysterectomy, right knee replacement FHx: unobtainable Social: denies alcohol, drug or tobacco use. Former tobacco user - smoked cigarettes, quit over 10 years ago. Lives at home with family. - Review of Systems ROS unobtainable: other (ROS unreliable 2/2 patient's mental status) General: denies: fever/chills, weight/appetite/sleep changes Eyes: denies: vision changes ENT: denies: nasal congestion, rhinorrhea Respiratory: denies: cough, congestion, shortness of breath Cardiovascular: denies: chest pain, palpitation, edema Gastrointestinal: denies: nausea, vomiting, diarrhea, constipation, abdominal pain, GI bleeding Genitourinary: reports: incontinence. denies: dysuria Skin: reports: lesions. denies: rashes Musculoskeletal: denies: pain, tenderness Neurological: reports: other (Headache). denies: syncope, weakness - Vital signs BP: 108/56, MAP: 73, Pulse: 81, Resp: 18, Temp: 98.0 (Oral), Pain: 0, O2 sat: 100 on (Room Air), Time: 10/14/2020 19:33 Wt: 54 kg - Physical Exam Constitutional: NAD HEENT: normocephalic and atraumatic, EOMI, grossly normal vision, grossly normal hearing Neck: supple, FROM, trachea midline, no LAD Chest: no-tender to palpation Heart: RRR, normal S1/S2, no murmurs/rubs/gallops, pulses present, no edema Lungs: CTAB, no respiratory distress, good air movement, no rales/rhonchi, no wheezing, no retractions Abdomen: soft, non-tender, bowel sounds present, no masses/distention, no hernias -Abdomen: Rectal exam with no external or internal hemorrhoids, stool in diaper, no gross blood on exam Musculoskeletal: normal structure Neurological: no focal deficit Skin: good turgor, capillary refill <2 seconds -Skin: ~6cm abrasion on R hip under diaper,no sacral ulcers Heme/Lymphatic: no unusual bruising or bleeding Psychiatric: normal mood and affect -Psychiatric: Axox to person only, unable to state where she is, the year FMR H&P: Results - Labs Result Diagrams: 10/15/20 05:51 10/15/20 05:51 Lab results: WBC 20.7 thou/uL (4.8-10.8) H 10/14/20 20:16 Hgb 6.6 g/dL (12.0-16.0) L 12/07/20 20:16 Hct 20.9 % (36.0-47.0) L 10/14/20 20:16 MCV 91.3 fL (78.0-98.0) 10/14/20 20:16 Plt Count 290 thou/uL (130-400) 10/14/20 20:16 Band Neuts % (Manual) 6 % (5-11) 10/14/20 20:16 Sodium 138 mmol/L (136-145) 10/14/20 20:16 Potassium 4.0 mmol/L (3.5-5.1) 10/14/20 20:16 Chloride 104 mmol/L (98-107) 10/14/20 20:16 Carbon Dioxide 21 mmol/L (23-31) L 10/14/20 20:16 BUN 34 mg/dL (9.8-20.1) H 10/14/20 20:16 Creatinine 1.28 mg/dL (0.6-1.1) H 10/14/20 20:16 Glucose 109 mg/dL (83-110) 10/14/20 20:16 Lactic Acid 3.3 mmol/L (0.5-2.2) H 10/14/20 20:16 Calcium 7.4 mg/dL (7.8-10.44) L 10/14/20 20:16 Total Bilirubin 0.4 mg/dL (0.2-1.2) 10/14/20 20:16 AST 18 U/L (5-34) 10/14/20 20:16 ALT 13 U/L (8-55) 10/14/20 20:16 Alkaline Phosphatase 70 U/L (40-110) 10/14/20 20:16 Serum Total Protein 5.5 g/dL (6.0-8.3) L 10/14/20 20:16 Albumin 3.1 g/dL (3.4-4.8) L 10/14/20 20:16 Urine Ketones Negative mg/dL (Negative) 10/14/20 20:22 Urine Blood 3+ (Negative) A 10/14/20 20:22 Urine Nitrite Negative (Negative) 10/14/20 20:22 Ur Leukocyte Esterase 500 Ines/uL (Negative) A 10/14/20 20:22 Urine RBC Greater than 50 HPF (0-3) A 10/14/20 20:22 Urine WBC Greater than 50 HPF (0-3) A 10/14/20 20:22 Ur Squamous Epith Cells 0-3 HPF (0-3) 10/14/20 20:22 Urine Bacteria 4+ HPF (None Seen) A 10/14/20 20:22 - EKG Interpretation EKG: EKG in A fib, with PVC, no evidence of ischemia - Radiology Interpretation Chest x-ray Status: report reviewed by me (No acute intrathoracic process) FMR H&P: A/P - Plan Sepsis 2/2 UTI - Patient with elevated WBC and hypotension on admission - hypotension resolving after fluids-patient with chronic hypotension - Received Vanc and Rocephin in ED - Will continue Rocephin - Recently found to have candidal UTI at last hospital stay, will continue Diflucan X3 days - Monitor VS Normocytic Anemia - Appears to be 2/2 acute blood loss, was recently admitted with GI bleed - FOBT done, rectal exam with no gross blood - Iron studies done at last visit showing low iron and TIBC. Folate is also low. Consider Fe supplementation at discharge. Will start multivitamin - Transfuse 1 u pRBC with Hgb 6.6 on admission JAMSHID - SCr 1.26 from ~0.7 at last admission - monitor with repeat labs given IVF administration A Fib - Hold home Eliquis at this time until bleed ruled out Dementia - Orientation strategies- reorient, open blinds at day, monitor BM Hypothyroidism - MD aware DVT ppx: hold until bleed r/o GI ppx: BID PO Protonix Diet: NPO @ midnight Code: Will need to be reassessed, per last hospital stay and palliative note 10/01, son, REGULO, wished for mother to be DNAR. Dispo: Admit inpatient to Medical, LOS likely >48 hrs. FMR H&P: Upper Level - Plan Date/Time: 10/14/202228 IMaddi MD, have evaluated this patient and agree with findings/plan as outlined by international trade specialist resident. Pertinent changes/additions are listed here. This is a 80yo F with PMH of dementia, chronic pain, diverticulosis, constipation, afib, and HTN who presents today with low BP from her assisted living. Of note, she was recently discharged from the hospitalist service on 10/09. She was admitted at that time for a suspected GI bleed. It was found that she had rectal bleeding and was disimpacted by GI. Her Hgb was 10 at that time. The patient is unable to really give any history. She was axox1. Per report she is axox2-3 at baseline. She states that she has been having a headache. She denies any other symptoms. Brief summary of previous hospitlization - she was admitted on 09/30 and discharged 10/09 for sepsis 2/2 kaylie UTI and was treated with diflucan. She had rectal bleeding and was evaluated by GI and was disimpacted. She has been staying at the [facility]. Her labs significant for - BUN/Cr 34/1.28, lactate 3.3, UA turbid, leuks, protein, WBC, bacteria; WBC of 20.7, Hgb 6.6. She was given vanc and rocephin for a UTI in the ER and 2 L NS. EKG showed a fib. On exam, patient was axox1, otherwise insignificant, irregularly irregular rhythm, but normal rate. MMM. Rectal exam - formed stool in diaper, no apparent blood, no hemorrhoids noted. Will admit to medical, inpt for sepsis 2/2 UTI. UA showing infection. Recently treated for kaylie urine with diflucan. Prev hx of several organisms in her urine including E coli, proteus, GBS. Will continue diflucan and rocephin. Normocytic anemia with hgb of 6.6. Will transfuse 1u PRBC. Recently evaluated by GI during her last hospitalization and had rectal bleeding from fecal impaction. Rectal exam performed - formed stool placed. Will start bowel regimen. Does not appear that patient has been on a bowel regimen at facility. Will also talk with care home facility to see if patient has been having regular BMs, if not will get a KUB and possibly CT abd to evaluate for stercoral colitis. Consider GI consult in the AM. JAMSHID - Cr bumped from baseline. Will give IVF. Hx of Covid in 09/06 - no need for precautions. Continue home meds for chronic conditions. Case management consulted for discharge planning. See international trade specialist note for full details. Dispo: med, inpt, LOS >48hrs. PCP: [facility] - Person Diet: Code: DNAR Case discussed with Dr. Arce Addendum - Attending - Attending Attestation Date/Time: 10/14/20 [id number] I personally evaluated the patient and discussed the management with Dr. Mobley and Tawanda I agree with the History, Examination, Assessment and Plan documented above with any addition or exceptions noted below. 80 yo female presents with hypotension. Patient noted to have a UTI and mild dehydration. Was recently admitted and then discharged on 10/09 for sepsis and UTI. Will admit and start antibiotics. Continue antifungal as well due to kaylie cystitis. Needs to check blood specimens for candiemia as well as bacteria. Continue IVFs. Needs RBC transfusion but not able to contact family at this time. BP has improved and no isabel bleeding at this time so not emergent. Portia
[2020-10-14] MEDS ORDERED: Ondansetron ODT 4 MG TAB PO PRN (23:47)
[2020-10-14] MEDS ORDERED: Bisacodyl 5 MG TAB PO PRN (23:47)
[2020-10-14] MEDS ORDERED: Ondansetron PF 4 MG/2 ML Vial IVP PRN (23:47)
[2020-10-14] MEDS ORDERED: Acetaminophen 650 MG Suppository PR PRN (23:47)
[2020-10-14] MEDS ORDERED: Calcium Carbonate 500 MG ChewTAB PO PRN (23:47)
[2020-10-14] MEDS ORDERED: Bisacodyl 10 MG SUPP PR PRN (23:47)
[2020-10-15 00:30] LABS: Lactic Acid 2.5 mmol/L (0.5-2.2)
[2020-10-15] MEDS ORDERED: Fleet Enema 133 ML BOT PR PRN (00:48)
[2020-10-15 03:37] VITALS: BMI 21.5
[2020-10-15] MEDS: Lactated Ringer's 1,000 ML IV SCH ×2 (03:37→16:52)
[2020-10-15] MEDS: Levothyroxine Sodium 50 MCG TAB PO SCH (04:17)
[2020-10-15 06:32] LABS: #Eosinphils 0.1 thou/uL (0.0-0.7); #Lymphocytes 1.8 thou/uL (1.20-3.40); #Monocytes 1.2 thou/uL (0.11-0.59); #Neutrophils 14.6 thou/uL (1.40-6.50); %Basophils 0.1 % (0.0-1.0); %Eosinophils 0.5 % (0.0-10.0); %Lymphocytes 10.2 % (21.0-51.0); %Monocytes 6.9 % (0.0-10.0); %Neutrophils 82.3 % (42.0-75.0); Hemoglobin 6.9 g/dL (12.0-16.0); Mean Corpuscular HGB CONC 31.8 g/dL (32.0-36.0); Mean Corpuscular Hemoglobin 28.6 pg (27.0-31.0); Mean Corpuscular Volume 90.1 fL (78.0-98.0); Mean Platelet Volume 8.3 fL (7.4-10.4); Platelet Count 284 thou/uL (130-400); RBC Distribution Width 15.1 % (11.5-14.5); Red Blood Cell (RBC) Count 2.41 mill/uL (4.20-5.40); White Blood Cell (WBC) Count 17.7 thou/uL (4.8-10.8)
[2020-10-15 06:52] LABS: Anion Gap 14 mmol/L (10-20); BUN (Urea Nitrogen) 23 mg/dL (9.8-20.1); Calc. Creatinine Clearance 55 mL/min (70-130); Calcium 7.3 mg/dL (7.8-10.44); Carbon Dioxide 20 mmol/L (23-31); Chloride 108 mmol/L (98-107); Glucose 105 mg/dL (83-110); Potassium 3.7 mmol/L (3.5-5.1); Sodium 138 mmol/L (136-145)
--- NOTE | 2020-10-15 07:46 | PDOC.FM ---
- Objective Vital Signs & Weight: Vital Signs (12 hours) Temp Pulse Resp BP BP Pulse Ox 10/15/20 07:42 98 F 108 H 17 107/81 100 10/15/20 04:00 97.4 F L 76 20 97/64 100 10/15/20 03:25 98.5 F 84 18 107/54 L 10/15/20 02:09 98.5 F 84 18 107/57 L 95 Weight Weight 62.46 kg I&O: 10/14/20 10/15/20 10/16/20 06:59 06:59 06:59 Output Total 350 Balance -350 Result Diagrams: 10/15/20 05:51 10/15/20 05:51 Dx/Plan (1) Atrial fibrillation Code(s): I48.91 - UNSPECIFIED ATRIAL FIBRILLATION Status: Chronic (2) Dementia Code(s): F03.90 - UNSPECIFIED DEMENTIA WITHOUT BEHAVIORAL DISTURBANCE Status: Chronic Qualifiers: Dementia type: unspecified type Dementia behavioral disturbance: without behavioral disturbance Qualified Code(s): F03.90 - Unspecified dementia without behavioral disturbance (3) HTN (hypertension) Code(s): I10 - ESSENTIAL (PRIMARY) HYPERTENSION Status: Chronic Qualifiers: Hypertension type: essential hypertension Qualified Code(s): I10 - Essential (primary) hypertension (4) Hypothyroidism Code(s): E03.9 - HYPOTHYROIDISM, UNSPECIFIED Status: Chronic Qualifiers: Hypothyroidism type: unspecified Qualified Code(s): E03.9 - Hypothyroidism, unspecified (5) Generalized anxiety disorder Code(s): F41.1 - GENERALIZED ANXIETY DISORDER Status: Chronic (6) UTI (urinary tract infection) Status: Acute (7) Sepsis Code(s): A41.9 - SEPSIS, UNSPECIFIED ORGANISM Status: Acute Qualifiers: Sepsis type: sepsis due to unspecified organism (8) GI bleeding Code(s): K92.2 - GASTROINTESTINAL HEMORRHAGE, UNSPECIFIED Status: Acute Qualifiers: GI bleed type/associated pathology: anorectal hemorrhage Qualified Code(s): K62.5 - Hemorrhage of anus and rectum - Plan Plan: Sepsis 2/2 UTI, POA - Rocephin 2g IV q 24 hour (10/14/2020) - Recently found to have candidal UTI at last hospital stay, will continue Diflucan X3 days - Monitor VS Normocytic Anemia - Appears to be 2/2 acute blood loss, was recently admitted with GI bleed - FOBT done, rectal exam with no gross blood - Iron studies done at last visit showing low iron and TIBC. Folate is also low. Consider Fe supplementation at discharge. Will start multivitamin - Transfuse 1 u pRBC with Hgb 6.6 on admission JAMSHID - SCr 1.26 from ~0.7 at last admission - monitor with repeat labs given IVF administration A Fib - Hold home Eliquis at this time until bleed ruled out Dementia - Orientation strategies- reorient, open blinds at day, monitor BM Hypothyroidism - Continue home medications DVT ppx: hold until bleed r/o GI ppx: BID PO Protonix Diet: NPO @ midnight Code: Will need to be reassessed, per last hospital stay and palliative note 10/01, son, REGULO, wished for mother to be DNAR. Dispo: Admit inpatient to Medical, LOS likely >48 hrs.
--- NOTE | 2020-10-15 08:30 | PDOC.EVN ---
Event Note - Event Note Event Note: Patient was recently discharged by the [facility] service on 10/09/20. Contacted the PA this morning to let her know that we had admitted the patient overnight and will be transferring care to their service. She accepted the patient. Brief checkout given. The patient's PCP is Mihai Noyola which is [facility]. The patient has not been seen by an attending this morning and will need to be ween 10/15. Leon DAVID PGY2
[2020-10-15] MEDS ORDERED: Heparin 5,000 UNITS/ML VIAL SC SCH (09:00)
[2020-10-15] MEDS ORDERED: FLU VACC QS2020-21(65YR UP)/PF 240 MCG/0.7 ML SYRINGE IM ONE (09:00)
--- NOTE | 2020-10-15 10:25 | PDOC.HOSPP ---
- Subjective Encounter Date: 10/15/20 Encounter Time: 10:21 Subjective: Patient transferred to hospitalist service this am. PCP is Dr. Noyola with [facility]. Of note, patient did not receive blood transfusion since family was not able to be contacted. In our records, son's number is listed incorrectly. Number for patient's [id number] is [phone]. Nursing has contacted registration to update this. I did speak with the son, who consented to a blood transfusion. This morning patient endorses pain to her R hip. She endorses mild dysuria. Is A&Ox2, which appears to be her baseline. She denies chest pain, SOB, abdominal pain. Denies fever, chills, or night-sweats. Chart and medications reviewed. - Objective Vital Signs & Weight: Vital Signs (12 hours) Temp Pulse Resp BP BP Pulse Ox 10/15/20 07:42 98 F 108 H 17 107/81 100 10/15/20 04:00 97.4 F L 76 20 97/64 100 10/15/20 03:25 98.5 F 84 18 107/54 L 10/15/20 02:09 98.5 F 84 18 107/57 L 95 Weight Weight 137 lb 11.2 oz I&O: 10/14/20 10/15/20 10/16/20 06:59 06:59 06:59 Output Total 350 Balance -350 Result Diagrams: 10/15/20 05:51 10/15/20 05:51 Hospitalist ROS - Review of Systems Constitutional: denies: fever, chills, sweats, weakness, malaise, other Eyes: denies: vision change Respiratory: denies: cough, shortness of breath Cardiovascular: denies: chest pain, palpitations, light headedness Gastrointestinal: denies: nausea, vomiting, abdominal pain, diarrhea, constipation, melena, hematochezia Genitourinary: reports: dysuria Musculoskeletal: reports: leg pain Skin: denies: rash, lesions, na, bruising, other Neurological: denies: weakness, numbness, incoordination, change in speech, confusion, seizures, other - Medication Medications: Active Medications Generic Name Dose Route Start Last Admin Trade Name Freq PRN Reason Stop Dose Admin Lactated Ringer's 1,000 mls @ 75 mls/hr 10/15/20 02:15 10/15/20 03:37 Lactated Ringer's IV Not Given .[id number] [facility] Levothyroxine Sodium 25 mcg 10/15/20 06:00 10/15/20 04:17 Levothyroxine Sodium 50 Mcg Tab PO Not Given 0600 [facility] - Exam General Appearance: NAD, awake alert Eye: PERRL, anicteric sclera ENT: normocephalic atraumatic, no oropharyngeal lesions, moist mucosa Neck: supple, symmetric, no JVD, no thyromegaly, no lymphadenopathy, no carotid bruit Heart: RRR, no murmur, no gallops, no rubs, normal peripheral pulses Respiratory: CTAB, no wheezes, no rales, no ronchi, normal chest expansion, no tachypnea, normal percussion Gastrointestinal: soft, non-tender, non-distended, normal bowel sounds, no palpa ble masses, no hepatomegaly, no splenomegaly, no bruit Extremities: no cyanosis, no clubbing, no edema Skin: normal turgor, no lesions, no rashes Neurological: normal sensation to touch, no weakness, no focal deficits Musculoskeletal - other findings: R hip TTP Psychiatric: oriented to person, oriented to place Hosp A/P - Plan Sepsis secondary to UTI - Patient with elevated WBC and hypotension on admission - Hypotension resolving after fluids-patient with chronic hypotension - Received Vanc and Rocephin in ED - Continue rocephin - Recently found to have candidal UTI at last hospital stay, will continue Diflucan X3 days - Monitor VS Normocytic Anemia - Appears to be 2/2 acute blood loss, was recently admitted with GI bleed - FOBT done, rectal exam with no gross blood - Iron studies done at last visit showing low iron and TIBC. Folate is also low. Consider Fe supplementation at discharge. Will start multivitamin - Transfuse 1 u pRBC with Hgb 6.6 on admission R Hip Pain On exam patient endorses significant R hip pain. Exuisitely tender to palpation on exam. Patient denies any recent falls or injury, although has hx of dementia. -Hip plain films JAMSHID - SCr 1.26 from ~0.7 at last admission - monitor with repeat labs given IVF administration A Fib - Hold home Eliquis at this time until bleed ruled out Dementia - Orientation strategies- reorient, open blinds at day, monitor BM Hypothyroidism - Continue home medication DVT ppx: hold until bleed r/o Case discussed with attending physician, Dr. Benson
[2020-10-15] MEDS: OLANZapine 2.5 MG TAB PO SCH ×2 (10:53→20:51)
[2020-10-15] MEDS: Polyethylene Glycol 3350 17 GM Packet PO SCH ×2 (10:53→20:47)
[2020-10-15] MEDS: Senokot S 8.6-50 MG TAB PO SCH ×2 (10:53→20:47)
--- NOTE | 2020-10-15 15:04 | RAD ---
RIGHT HIP: 10/15/20 Two views. HISTORY: Hip pain. Femoral head contour is normal. No evidence of acute fracture. The visualized pelvis appears intact. IMPRESSION: No acute findings. POS: AGW
[2020-10-15 16:17] LABS: SARS-CoV-2 MS2 Positive; SARS-CoV-2 N Gene Positive; SARS-CoV-2 S Gene Negative; SARS-CoV-2 by NAA DETECTED (NotDetected); SARS-CoV-2 orf1ab Positive
[2020-10-15] MEDS: Fluconazole 100 MG TAB PO SCH (16:51)
[2020-10-15] MEDS: Tamsulosin HCl 0.4 MG CAP PO SCH (16:52)
[2020-10-15 17:56] LABS: Hemoglobin 7.7 g/dL (12.0-16.0); Platelet Count 257 thou/uL (130-400)
[2020-10-15] MEDS: Donepezil HCl 10 MG TAB PO SCH (20:47)
[2020-10-15] MEDS ORDERED: cefTRIAXone\\ROCEPHIN 2 GM in Sodium Chloride 0.9% 100 ML IVPB SCH (21:00)
[2020-10-16] MEDS: Levothyroxine Sodium 50 MCG TAB PO SCH (05:44)
[2020-10-16] MEDS: Lactated Ringer's 1,000 ML IV SCH ×2 (05:45→16:37)
[2020-10-16 06:32] LABS: #Eosinphils 0.3 thou/uL (0.0-0.7); #Lymphocytes 2.1 thou/uL (1.20-3.40); #Monocytes 1.1 thou/uL (0.11-0.59); #Neutrophils 9.9 thou/uL (1.40-6.50); %Basophils 0.2 % (0.0-1.0); %Eosinophils 1.9 % (0.0-10.0); %Lymphocytes 15.6 % (21.0-51.0); %Monocytes 8.2 % (0.0-10.0); %Neutrophils 74.1 % (42.0-75.0); Hemoglobin 7.8 g/dL (12.0-16.0); Mean Corpuscular HGB CONC 32.4 g/dL (32.0-36.0); Mean Corpuscular Hemoglobin 29.3 pg (27.0-31.0); Mean Corpuscular Volume 90.5 fL (78.0-98.0); Mean Platelet Volume 7.7 fL (7.4-10.4); Platelet Count 257 thou/uL (130-400); RBC Distribution Width 14.3 % (11.5-14.5); Red Blood Cell (RBC) Count 2.66 mill/uL (4.20-5.40); White Blood Cell (WBC) Count 13.4 thou/uL (4.8-10.8)
[2020-10-16 06:50] LABS: Anion Gap 10 mmol/L (10-20); BUN (Urea Nitrogen) 8 mg/dL (9.8-20.1); Calc. Creatinine Clearance 85 mL/min (70-130); Calcium 7.5 mg/dL (7.8-10.44); Carbon Dioxide 28 mmol/L (23-31); Chloride 108 mmol/L (98-107); Glucose 77 mg/dL (83-110); Potassium 3.5 mmol/L (3.5-5.1); Sodium 142 mmol/L (136-145)
[2020-10-16] MEDS: Senokot S 8.6-50 MG TAB PO SCH ×2 (08:50→21:05)
[2020-10-16] MEDS: Tamsulosin HCl 0.4 MG CAP PO SCH (08:51)
[2020-10-16] MEDS: Fluconazole 100 MG TAB PO SCH (08:51)
[2020-10-16] MEDS: Polyethylene Glycol 3350 17 GM Packet PO SCH ×2 (08:53→21:05)
[2020-10-16] MEDS: OLANZapine 2.5 MG TAB PO SCH ×2 (08:53→21:05)
[2020-10-16 12:33] LABS: Iron 38 ug/dL (50-170); Iron Binding Capacity, Total 188 mcg/dL (265-497)
--- NOTE | 2020-10-16 12:59 | PDOC.PALCO ---
Palliative Care Consult - Consult Details Requesting Physician: Residents Reason for Consult: family support - Pertinent HPI Patient is well known to Palliative Care from recent hospital stay, she was discharged back to [facility] in [place] 10/09/2020. Son was hoping to transition his mother to skilled facility in [place]. His father recently in Jun. Patient was found to have hypotension at the facility with headaches. Negative for any urinary symptoms, fever, nausea, or vomiting. Patient however is confused at baseline and not a reliable source for review of systems. [facility] she was given a bolus of ns and bp improved. Patient was identified to have a recurrent UTI as was admitted for sepsis related UTI for further medical management. - Social History Smoking: no tobacco exposure Alcohol Use: none Drug Use History: none Living Situation: [facility]dc resident - Medications MAR Reviewed: Yes - Allergies Allergies/Adverse Reactions: Allergies Allergy/AdvReac Type Severity Reaction Status Date / Time Sulfa (Sulfonamide Allergy Verified 10/01/20 02:23 Antibiotics) caffeine AdvReac Intermediate Anxiety Verified 10/01/20 02:23 - Subjective Confused, unable to participate in exam, could not recall month or if she had eaten. Not aware of location. Not a fully reliable source for ROS - ROS Constitutional: weakness Genitourinary: frequency Psychological: memory changes - Objective Vital Signs: Vital Signs - Most Recent Temp Pulse Resp BP Pulse Ox 97.9 F 95 18 127/80 99 10/16/20 07:51 10/16/20 07:51 10/16/20 07:51 10/16/20 07:51 10/16/20 09:15 Palliative Performance Scale: 30 - Physical Exam Constitutional: confusion, ill appearing HEENT: moist MMs Respiratory: no rhonchi, no wheezing, unlabored breathing Cardiovascular: no significant murmur, RRR Gastrointestinal: soft, non-tender, positive bowel sounds Genitourinary: mann catheter Musculoskeletal: no cyanosis, pulses present Neurology: moves all 4 limbs, no focal deficits Skin: cap refill <2 seconds Psychiatric: flat affect Deviation from normal: Oriented to self - Problem List (1) Acute encephalopathy Code(s): G93.40 - ENCEPHALOPATHY, UNSPECIFIED Current Visit: No Status: Acute (2) Palliative care encounter Code(s): Z51.5 - ENCOUNTER FOR PALLIATIVE CARE Current Visit: No Status: Acute (3) Sepsis Code(s): A41.9 - SEPSIS, UNSPECIFIED ORGANISM Current Visit: No Status: Acute Qualifiers: Sepsis type: sepsis due to unspecified organism (4) UTI (urinary tract infection) Current Visit: No Status: Acute - Plan/Recommendations Plan: Assessed patient. Poor historian and confused. Attempted to call son as well as text. No reply. Ensured appropriate documentation for him is on patient face sheet. Todd Walker Palliative Care registrar confirmed. Palliative Care will follow at a distance to offer support. Our Team will follow up 10/17/2020 [35] minutes spent on this encounter with >50% of the time in counseling and coordination of care. Thank you for this very appropriate consult.
[2020-10-16] MEDS: Cefepime 2 GM in Sodium Chloride 0.9% 100 ML IVPB SCH (13:09)
[2020-10-16] MEDS: Acetaminophen 325 MG TAB PO PRN (13:20)
[2020-10-16] MEDS ORDERED: Cyanocobalamin (Vitamin B-12) 1,000 MCG TAB PO SCH (13:45)
[2020-10-16] MEDS ORDERED: Folic Acid 1 MG TAB PO SCH (14:00)
--- NOTE | 2020-10-16 18:23 | PDOC.HOSPP ---
- Subjective Encounter Date: 10/16/20 Encounter Time: 11:00 Subjective: Patient was seen and examined in bed. She was noted to be having intermittent confusions. She however denies any chest pain cough or shortness of breath. She denies any dysuria frequency - Objective Vital Signs & Weight: Vital Signs (12 hours) Temp Pulse Resp BP Pulse Ox 10/16/20 09:15 99 10/16/20 07:51 97.9 F 95 18 127/80 99 Weight Weight 137 lb 11.2 oz I&O: 10/15/20 10/16/20 10/17/20 06:59 06:59 06:59 Intake Total 2750 Output Total 350 3500 Balance -350 -750 Result Diagrams: 10/16/20 06:07 10/16/20 06:07 Hospitalist ROS - Medication Medications: Active Medications Generic Name Dose Route Start Last Admin Trade Name Freq PRN Reason Stop Dose Admin Acetaminophen 650 mg 10/14/20 23:47 10/16/20 13:20 Acetaminophen 325 Mg Tab PO 650 mg Q4H PRN Administration Headache/Fever/Mild Pain (1-3) Donepezil HCl 10 mg 10/15/20 21:00 10/15/20 20:47 Donepezil Hcl 10 Mg Tab PO 10 mg HS GHADA Administration Fluconazole 200 mg 10/15/20 09:00 10/16/20 08:51 Fluconazole 100 Mg Tab PO 10/29/20 09:01 200 mg DAILY GHADA Administration Lactated Ringer's 1,000 mls @ 75 mls/hr 10/15/20 02:15 10/16/20 05:45 Lactated Ringer's IV 1,000 mls .[id number] GHADA Administration Cefepime HCl 2 gm/ Sodium 100 mls @ 200 mls/hr 10/16/20 12:00 10/16/20 13:09 Chloride IVPB 100 mls 1200,2359 GHADA Administration Levothyroxine Sodium 25 mcg 10/15/20 06:00 10/16/20 05:44 Levothyroxine Sodium 50 Mcg Tab PO 25 mcg 0600 GHADA Administration Memantine 10 mg 10/15/20 09:00 10/16/20 08:52 Memantine Hcl 10 Mg Tab PO 10 mg BID GHADA Administration Metoprolol Succinate 75 mg 10/15/20 09:00 12/09/20 08:52 Metoprolol Succinate Xl 25 Mg Tab PO 75 mg DAILY GHADA Administration Olanzapine 2.5 mg 10/15/20 09:00 10/16/20 08:53 Olanzapine 2.5 Mg Tab PO 2.5 mg BID GHADA Administration Pantoprazole Sodium 40 mg 10/15/20 09:00 10/16/20 08:53 Pantoprazole 40 Mg Tab PO 40 mg BID GHADA Administration Polyethylene Glycol 17 gm 10/15/20 09:00 10/16/20 08:53 Polyethylene Glycol 3350 17 Gm Packet PO 17 gm BID GHADA Administration Senna/Docusate Sodium 2 tab 10/15/20 09:00 10/16/20 08:50 Senokot S 8.6-50 Mg Tab PO 2 tab BID GHADA Administration Tamsulosin HCl 0.4 mg 10/15/20 09:00 10/16/20 08:51 Tamsulosin Hcl 0.4 Mg Cap PO 0.4 mg DAILY GHADA Administration - Exam General Appearance: awake alert Heart: RRR, no murmur, no gallops, no rubs Respiratory: CTAB, no wheezes, no rales, no ronchi Gastrointestinal: soft, non-tender, non-distended, normal bowel sounds Extremities: no cyanosis, no clubbing, no edema Neurological: cranial nerve grossly intact, no focal deficits Psychiatric: normal affect, A&O x 3 Psychiatric - other findings: Communicate effectively however intermittently confused Hosp A/P - Plan This is 80-year-old Female patient with a history of A. fib, dementia and hypothyroidism admitted on account of urinary tract infection. She is intermittently confused. Today had urine cultures grew Enterobacter resistant to Rocephin which she is on. Antibiotics changed to cefepime. Sepsis secondary to UTI Urine growing Citrobacterresistant organism Start on cefepime Monitor Also had carried a UTI and on Diflucan Mild encephalopathy Possibly due to UTI Continue antibiotics Monitor Normocytic anemia No bleeding per rectum noted She had low folate and B12 last visit Start time B12 and folate Possibly anemia of chronic disease Hemoglobin stable7.8 today from 7.7 a day ago GI consult in a.m. JAMSHID Resolved A. fib Eliquis held on account of possible GI bleed No bleeding noted so far We will monitor however. Hypothyroidism Continue home medications. CODE STATUSDNR VTE prophylaxisSCD
[2020-10-16] MEDS: Donepezil HCl 10 MG TAB PO SCH (21:05)
[2020-10-17] MEDS: Cefepime 2 GM in Sodium Chloride 0.9% 100 ML IVPB SCH ×3 (01:30→23:22)
[2020-10-17] MEDS: Levothyroxine Sodium 50 MCG TAB PO SCH (05:34)
[2020-10-17 07:10] LABS: Anion Gap 13 mmol/L (10-20); BUN (Urea Nitrogen) 7 mg/dL (9.8-20.1); Calc. Creatinine Clearance 80 mL/min (70-130); Calcium 8.1 mg/dL (7.8-10.44); Carbon Dioxide 25 mmol/L (23-31); Chloride 106 mmol/L (98-107); Glucose 100 mg/dL (83-110); Potassium 3.9 mmol/L (3.5-5.1); Sodium 140 mmol/L (136-145)
--- NOTE | 2020-10-17 07:51 | PDOC.HOSPP ---
- Subjective Encounter Date: 10/17/20 Encounter Time: 09:00 Subjective: Patient without events overnight. No evidence bleeding. Patient remains confused at baseline. - Objective Vital Signs & Weight: Vital Signs (12 hours) Temp Pulse Resp BP Pulse Ox 10/17/20 07:28 98.0 F 90 20 120/67 100 10/16/20 23:19 98.0 F 95 16 98 10/16/20 20:10 97.8 F 95 16 138/80 99 Weight Weight 137 lb 11.2 oz I&O: 10/16/20 10/17/20 10/18/20 06:59 06:59 06:59 Intake Total 2750 1885 Output Total 3500 1200 Balance -750 685 Result Diagrams: 10/17/20 07:19 10/17/20 06:02 Hospitalist ROS - Review of Systems ROS unobtainable: due to mental status - Medication Medications: Active Medications Generic Name Dose Route Start Last Admin Trade Name Freq PRN Reason Stop Dose Admin Acetaminophen 650 mg 10/14/20 23:47 10/16/20 13:20 Acetaminophen 325 Mg Tab PO 650 mg Q4H PRN Administration Headache/Fever/Mild Pain (1-3) Donepezil HCl 10 mg 10/15/20 21:00 10/16/20 21:05 Donepezil Hcl 10 Mg Tab PO 10 mg HS GHADA Administration Fluconazole 200 mg 10/15/20 09:00 10/16/20 08:51 Fluconazole 100 Mg Tab PO 10/29/20 09:01 200 mg DAILY GHADA Administration Lactated Ringer's 1,000 mls @ 75 mls/hr 10/15/20 02:15 10/16/20 16:37 Lactated Ringer's IV 1,000 mls .[id number] GHADA Administration Cefepime HCl 2 gm/ Sodium 100 mls @ 200 mls/hr 10/16/20 12:00 10/17/20 01:30 Chloride IVPB 100 mls 1200,2359 GHADA Administration Levothyroxine Sodium 25 mcg 10/15/20 06:00 10/17/20 05:34 Levothyroxine Sodium 50 Mcg Tab PO 25 mcg 0600 GHADA Administration Memantine 10 mg 10/15/20 09:00 10/16/20 21:05 Memantine Hcl 10 Mg Tab PO 10 mg BID GHADA Administration Metoprolol Succinate 75 mg 10/15/20 09:00 10/16/20 08:52 Metoprolol Succinate Xl 25 Mg Tab PO 75 mg DAILY GHADA Administration Olanzapine 2.5 mg 10/15/20 09:00 10/16/20 21:05 Olanzapine 2.5 Mg Tab PO 2.5 mg BID GHADA Administration Pantoprazole Sodium 40 mg 10/15/20 09:00 10/16/20 21:05 Pantoprazole 40 Mg Tab PO 40 mg BID GHADA Administration Polyethylene Glycol 17 gm 10/15/20 09:00 10/16/20 21:05 Polyethylene Glycol 3350 17 Gm Packet PO 17 gm BID GHADA Administration Senna/Docusate Sodium 2 tab 10/15/20 09:00 10/16/20 21:05 Senokot S 8.6-50 Mg Tab PO 2 tab BID GHADA Administration Tamsulosin HCl 0.4 mg 10/15/20 09:00 10/16/20 08:51 Tamsulosin Hcl 0.4 Mg Cap PO 0.4 mg DAILY GHADA Administration - Exam General Appearance: NAD, awake alert ENT: moist mucosa Heart: RRR, no murmur, no gallops, no rubs Respiratory: CTAB, no wheezes, no rales, no ronchi Gastrointestinal: soft, non-tender, non-distended, normal bowel sounds Extremities: no edema Psychiatric: normal affect, normal behavior, oriented to person. negative: oriented to place, oriented to time Hosp A/P - Plan This is 80-year-old Female patient with a history of A. fib, dementia and hypothyroidism admitted on account of urinary tract infection. She is intermittently confused. Sepsis secondary to UTI Urine growing Citrobacterresistant organism Started on cefepime Monitor Also on Diflucan Mild encephalopathy Possibly due to UTI Continue antibiotics Monitor Normocytic anemia No bleeding per rectum noted She had low folate and B12 last visit Start time B12 and folate Possibly anemia of chronic disease Hemoglobin stable after transfusion GI consult for this AM JAMSHID Resolved A. fib Eliquis held on account of possible GI bleed No bleeding noted so far We will monitor. Can try resuming Eliquis if ok with GI. Hypothyroidism Continue home medications. Likely d/c on Levaquin once blood loss addressed. CODE STATUSDNR VTE prophylaxisSCD
[2020-10-17 08:10] LABS: #Basophils 0.1 thou/uL (0.0-0.2); #Eosinphils 0.1 thou/uL (0.0-0.7); #Lymphocytes 1.7 thou/uL (1.20-3.40); #Monocytes 0.8 thou/uL (0.11-0.59); #Neutrophils 8.7 thou/uL (1.40-6.50); %Basophils 0.6 % (0.0-1.0); %Eosinophils 0.6 % (0.0-10.0); %Lymphocytes 14.7 % (21.0-51.0); %Monocytes 7.1 % (0.0-10.0); Hemoglobin 9.2 g/dL (12.0-16.0); Mean Corpuscular HGB CONC 32.1 g/dL (32.0-36.0); Mean Corpuscular Hemoglobin 29.3 pg (27.0-31.0); Mean Corpuscular Volume 91.4 fL (78.0-98.0); Mean Platelet Volume 7.8 fL (7.4-10.4); Platelet Count 324 thou/uL (130-400); RBC Distribution Width 15.1 % (11.5-14.5); Red Blood Cell (RBC) Count 3.12 mill/uL (4.20-5.40); White Blood Cell (WBC) Count 11.3 thou/uL (4.8-10.8)
[2020-10-17] MEDS: Lactated Ringer's 1,000 ML IV SCH ×2 (08:59→21:12)
[2020-10-17] MEDS: Tamsulosin HCl 0.4 MG CAP PO SCH (09:04)
[2020-10-17] MEDS: Fluconazole 100 MG TAB PO SCH (09:04)
[2020-10-17] MEDS: OLANZapine 2.5 MG TAB PO SCH ×2 (09:04→20:29)
[2020-10-17] MEDS: Senokot S 8.6-50 MG TAB PO SCH ×2 (09:04→21:11)
[2020-10-17] MEDS: Polyethylene Glycol 3350 17 GM Packet PO SCH ×2 (09:05→21:11)
--- NOTE | 2020-10-17 09:45 | PDOC.PALPN ---
Palliative Progress Note - Subjective Awake and alert. Verbal, however confused. Could not recall if she had eaten breakfast and uncertain of time of day. Denies any complaints. - Objective Vital Signs: Vital Signs - Most Recent Temp Pulse Resp BP Pulse Ox 98.0 F 90 20 120/67 100 10/17/20 07:28 12 07:28 10/17/20 07:28 10/17/20 07:28 10/17/20 07:28 - Physical Exam Constitutional: NAD, cachectic Deviation from normal: clavicular wasting HEENT: EOMI, moist MMs, sclera anicteric Respiratory: no wheezing, unlabored breathing Cardiovascular: RRR Gastrointestinal: soft, non-tender, positive bowel sounds Genitourinary: mann catheter Musculoskeletal: no edema, pulses present Neurology: moves all 4 limbs, no focal deficits Skin: cap refill <2 seconds, fragile Psychiatric: normal mood Deviation from normal: Oreinted to self, could not recall location or time of year. - Assessment (1) Acute encephalopathy Code(s): G93.40 - ENCEPHALOPATHY, UNSPECIFIED Current Visit: No Status: Acute (2) Palliative care encounter Code(s): Z51.5 - ENCOUNTER FOR PALLIATIVE CARE Current Visit: No Status: Acute (3) Sepsis Code(s): A41.9 - SEPSIS, UNSPECIFIED ORGANISM Current Visit: No Status: Acute Qualifiers: Sepsis type: sepsis due to unspecified organism (4) UTI (urinary tract infection) Current Visit: No Status: Acute - Plan Plan: Son, Emi Willard, hopeful for transition to skilled setting. Aware of decline, but hopeful to gain strength and decrease recurrent hospitalizations. Overwhelmed with recent loss of his father and his mother being located in [place]. He is hopeful for transition to local facility. Communicated to son/MPOA Jr Willard, that Palliative Care is signing off, however if we can further assist he can request a re consult to readdress Goal of Care. Consideration may be given to PT/OT to assist in mobility and increase safe functionality in ADL. Review of records indicate moderate to poor intake. As stated palliative care will sign off, if we can assist in revisiting Goal of Care please re consult our team. Thank you for this very appropriate consult and allowing us to participate in the care of Ms Willard. [35] minutes spent on this encounter with >50% of the time in counseling and coordination of care. - ROS Constitutional: alert, weakness ENT: other (Denies throat irritaiton, difficulity swallowing) Respiratory: other (Denies shortness of breath or cough) Cardiology: other (Denies chest pain or palpitations) Gastrointestinal: other (Denies nausea or vomiting) Musculoskeletal: other (Denies pain)
[2020-10-17] MEDS: Cyanocobalamin (Vitamin B-12) 1,000 MCG TAB PO SCH (20:29)
[2020-10-17] MEDS: Donepezil HCl 10 MG TAB PO SCH (20:29)
[2020-10-17] MEDS: Folic Acid 1 MG TAB PO SCH (20:29)
[2020-10-17] MEDS: Acetaminophen 325 MG TAB PO PRN (21:08)
--- NOTE | 2020-10-17 22:49 | CON ---
DATE OF CONSULTATION: 10/17/2020 REASON FOR CONSULTATION: Anemia. CONSULTING PROVIDER: Gino Martin MD. HISTORY OF PRESENT ILLNESS: The patient is a 80-year-old female with past medical history of chronic lower back pain, diverticulosis, hypertension, general anxiety disorder, atrial fibrillation on anticoagulation, hypothyroidism, constipation, requiring fecal disimpaction, and dementia presenting with anemia and hypotension. Per interview with the patient, she was alert and oriented only to herself and was a poor historian in terms of her past and current medical care. Most information obtained was through chart review. Per chart review, the patient was sent from the skilled nursing/home health where she was noted to have hypotension with the lowest blood pressure recorded in the ER at 91/53. She was subsequently given 1 L of fluid with good response for blood pressure and no further episodes of hypotension. Per the ER record, she had also been complaining of feeling weakness for the few days prior to admission, but denied any additional symptoms associated with this. At the time of my interview, the patient was completely asymptomatic and denied any particular symptoms at all including nausea, vomiting, fevers, chills, GI bleeding, abdominal pain, dysphagia, odynophagia, diarrhea, constipation, or weight loss. Per the sitter at bedside, the patient had been able to eat well today with no problems with consumption. She is currently being treated for urinary tract infection and was COVID positive, but had been positive on prior hospitalizations. Per the nursing staff and per the patient's sitter during the course of this hospitalization over the last 2-3 days, she has not had any evidence of overt bleeding GI or otherwise. REVIEW OF SYSTEMS: A 10-category review of systems could not be obtained due to the patient's altered mental status. PAST MEDICAL HISTORY: As per HPI. PAST SURGICAL HISTORY: Cholecystectomy, hysterectomy, and right knee replacement. FAMILY HISTORY: Could not obtain due to the patient's altered mental status. SOCIAL HISTORY: No mention of tobacco, alcohol, or illicit drug use of the patient's chart. OUTPATIENT MEDICATIONS: Reviewed. ALLERGIES: SULFA AND CAFFEINE. PHYSICAL EXAMINATION: VITAL SIGNS: Temperature 97.9, pulse 77, blood pressure 109/67, respiratory rate 20, saturating 95% on room air. GENERAL: The patient was lying in bed, in no acute distress. Alert and oriented x1. HEENT: Normocephalic, atraumatic. NECK: Supple. No JVD or scleral icterus noted. CARDIOVASCULAR: Regular rate and rhythm with no discernible murmurs, gallops, or rubs. RESPIRATORY: Clear to auscultation bilaterally, but with some resistance to air flow in all lung ulloa. ABDOMEN: Normoactive bowel sounds. Soft, nontender, and nondistended. EXTREMITIES: No cyanosis, clubbing, or edema. LABORATORY DATA: CBC with a white blood cell count of 11.3, hemoglobin 9.2, hematocrit 28.6, platelets 324. Chemistry with a sodium of 140, potassium 3.9, chloride 106, CO2 of 25, BUN 7, creatinine 0.56, glucose 100. Serum iron 38, ferritin 427, TIBC 188. Urinalysis was consistent with urinary tract infection and the patient was COVID positive, but also tested positive in August 2020. IMAGING DATA: No current GI imaging is available for review, although on chart review, the patient was recently admitted for fecal disimpaction in September 2020 with hematochezia observed at that time. ASSESSMENT AND PLAN: The patient is a 80-year-old female with past medical history of chronic lower back pain, diverticulosis, hypertension, generalized anxiety disorder, hypothyroidism, atrial fibrillation on anticoagulation, dementia, and chronic constipation requiring fecal disimpaction during the last hospitalization, now with anemia of unknown origin. Anemia of unknown origin: Patient was in the hospital in September 2020 with a hemoglobin of 10 at that time. However, over the last few weeks, the patient has had a repeat H and H that showed a significant decline to hemoglobin of 6. During this admission, she responded well to the infusion of 1 unit of PRBCs with a hemoglobin now of 9.2 (over-correction). Upon further characterization of this anemia, the patient's labs are more indicative of anemia of chronic disease rather than acute GI blood loss. Given her recent serology showing a low folate and low B12, this could also contribute to her current anemia. Concurrently, the patient also does not have any evidence of clinical GI bleeding in any nor was there mention of any of that prior to this admission per home health/skilled nursing. RECOMMENDATIONS: 1. We will continue to trend the patient's H and H, and transfuse as necessary to maintain an H and H of 7/21. 2. Continue to monitor clinically for signs of active gastrointestinal bleeding. 3. Would continue B12 and folic acid supplementation given her anemia and low levels on prior admission. 4. Given the lack of overt gastrointestinal bleeding and labs indicative of an anemia of chronic disease, no endoscopic evaluation is indicated at this time. I would restart the patient's anticoagulation if deemed clinically appropriate. However, if the patient does continue to have a decrease in her H and H on anticoagulation, endoscopy may be considered at that time. We will continue to follow peripherally. Please call with any questions. Job ID: [id number]
[2020-10-18] MEDS: Levothyroxine Sodium 50 MCG TAB PO SCH (05:58)
[2020-10-18 06:50] LABS: #Basophils 0.1 thou/uL (0.0-0.2); #Eosinphils 0.2 thou/uL (0.0-0.7); #Lymphocytes 1.7 thou/uL (1.20-3.40); #Monocytes 0.9 thou/uL (0.11-0.59); #Neutrophils 6.3 thou/uL (1.40-6.50); %Basophils 0.9 % (0.0-1.0); %Eosinophils 2.5 % (0.0-10.0); %Lymphocytes 18.6 % (21.0-51.0); %Monocytes 9.5 % (0.0-10.0); %Neutrophils 68.5 % (42.0-75.0); Hemoglobin 8.1 g/dL (12.0-16.0); Mean Corpuscular HGB CONC 33.1 g/dL (32.0-36.0); Mean Corpuscular Hemoglobin 30.7 pg (27.0-31.0); Mean Corpuscular Volume 92.7 fL (78.0-98.0); Mean Platelet Volume 8.2 fL (7.4-10.4); Platelet Count 278 thou/uL (130-400); RBC Distribution Width 15.4 % (11.5-14.5); Red Blood Cell (RBC) Count 2.62 mill/uL (4.20-5.40); White Blood Cell (WBC) Count 9.2 thou/uL (4.8-10.8)
[2020-10-18 07:13] LABS: Anion Gap 14 mmol/L (10-20); BUN (Urea Nitrogen) 9 mg/dL (9.8-20.1); Calc. Creatinine Clearance 73 mL/min (70-130); Carbon Dioxide 25 mmol/L (23-31); Chloride 105 mmol/L (98-107); Glucose 82 mg/dL (83-110); Potassium 3.6 mmol/L (3.5-5.1); Sodium 140 mmol/L (136-145)
--- NOTE | 2020-10-18 08:02 | PDOC.HOSPP ---
- Subjective Encounter Date: 10/18/20 Encounter Time: 09:50 Subjective: Patient without events overnight. No bleeding. She did have a positive Covid-19 test done on admission, however patient had Covid-19 back in August and no symptoms currently. Likely a prolonged positive test after infection rather than active infection at this point. No need for isolation at this time. - Objective Vital Signs & Weight: Vital Signs (12 hours) Temp Pulse Resp BP Pulse Ox 10/18/20 07:48 97.9 F 80 16 109/67 99 10/18/20 03:51 98.0 F 76 20 109/68 98 10/17/20 20:17 97.9 F 77 20 109/67 95 Weight Weight 137 lb 11.2 oz I&O: 10/17/20 10/18/20 10/19/20 06:59 06:59 06:59 Intake Total 1885 3125 Output Total 1200 2050 Balance 685 1075 Result Diagrams: 10/18/20 05:53 10/18/20 05:53 Hospitalist ROS - Review of Systems ROS unobtainable: due to mental status - Medication Medications: Active Medications Generic Name Dose Route Start Last Admin Trade Name Freq PRN Reason Stop Dose Admin Acetaminophen 650 mg 10/14/20 23:47 10/17/20 21:08 Acetaminophen 325 Mg Tab PO 650 mg Q4H PRN Administration Headache/Fever/Mild Pain (1-3) Cyanocobalamin 1,000 mcg 10/17/20 21:00 10/17/20 20:29 Cyanocobalamin (Vitamin B-12) 1,000 Mcg Tab PO 1,000 mcg HS GHADA Administration Donepezil HCl 10 mg 10/15/20 21:00 10/17/20 20:29 Donepezil Hcl 10 Mg Tab PO 10 mg HS GHADA Administration Fluconazole 200 mg 10/15/20 09:00 10/17/20 09:04 Fluconazole 100 Mg Tab PO 10/29/20 09:01 200 mg DAILY GHADA Administration Folic Acid 1 mg 10/17/20 21:00 10/17/20 20:29 Folic Acid 1 Mg Tab PO 1 mg 2100 GHADA Administration Lactated Ringer's 1,000 mls @ 75 mls/hr 10/15/20 02:15 10/17/20 21:12 Lactated Ringer's IV 1,000 mls .[id number] GHADA Administration Cefepime HCl 2 gm/ Sodium 100 mls @ 200 mls/hr 10/16/20 12:00 10/17/20 23:22 Chloride IVPB 100 mls 1200,2359 GHADA Administration Levothyroxine Sodium 25 mcg 10/15/20 06:00 10/18/20 05:58 Levothyroxine Sodium 50 Mcg Tab PO 25 mcg 0600 GHADA Administration Memantine 10 mg 10/15/20 09:00 10/17/20 20:29 Memantine Hcl 10 Mg Tab PO 10 mg BID GHADA Administration Metoprolol Succinate 75 mg 10/15/20 09:00 10/17/20 09:03 Metoprolol Succinate Xl 25 Mg Tab PO 75 mg DAILY GHADA Administration Olanzapine 2.5 mg 10/15/20 09:00 10/17/20 20:29 Olanzapine 2.5 Mg Tab PO 2.5 mg BID GHADA Administration Pantoprazole Sodium 40 mg 10/15/20 09:00 10/17/20 20:29 Pantoprazole 40 Mg Tab PO 40 mg BID GHADA Administration Polyethylene Glycol 17 gm 10/15/20 09:00 10/17/20 21:11 Polyethylene Glycol 3350 17 Gm Packet PO 17 gm BID GHADA Administration Senna/Docusate Sodium 2 tab 10/15/20 09:00 10/17/20 21:11 Senokot S 8.6-50 Mg Tab PO 2 tab BID GHADA Administration Tamsulosin HCl 0.4 mg 10/15/20 09:00 10/17/20 09:04 Tamsulosin Hcl 0.4 Mg Cap PO 0.4 mg DAILY GHADA Administration - Exam General Appearance: NAD, awake alert ENT: moist mucosa Heart: RRR, no murmur, no gallops, no rubs Respiratory: CTAB, no wheezes, no rales, no ronchi Gastrointestinal: soft, non-tender, non-distended, normal bowel sounds Psychiatric: normal affect, normal behavior, not oriented Hosp A/P - Plan This is 80-year-old Female patient with a history of A. fib, dementia and hypothyroidism admitted on account of urinary tract infection. She is intermittently confused. Sepsis secondary to UTI Urine growing Citrobacterresistant organism Started on cefepime Monitor Also on Diflucan Can change to oral Levaquin for discharge Mild encephalopathy Possibly due to UTI Continue antibiotics Monitor Normocytic anemia No bleeding per rectum noted She had low folate and B12 last visit Start time B12 and folate Possibly anemia of chronic disease Hemoglobin stable after transfusion GI consulted, stated most likely anemia of chronic disease, can restart anticoag ulation JAMSHID Resolved A. fib Eliquis resumed. Hypothyroidism Continue home medications. Likely d/c on Levaquin now that anemia addressed and no need for endoscopy. Awaiting PT eval to decide on proper location for discharge, either back to assisted living or to SNF. CODE STATUSDNR VTE prophylaxisSCD
[2020-10-18] MEDS: Apixaban 5 MG TAB PO SCH ×2 (08:46→20:12)
[2020-10-18] MEDS: Fluconazole 100 MG TAB PO SCH (08:46)
[2020-10-18] MEDS: Senokot S 8.6-50 MG TAB PO SCH ×2 (08:47→20:18)
[2020-10-18] MEDS: Tamsulosin HCl 0.4 MG CAP PO SCH (08:47)
[2020-10-18] MEDS: OLANZapine 2.5 MG TAB PO SCH ×2 (08:47→20:12)
[2020-10-18] MEDS: Polyethylene Glycol 3350 17 GM Packet PO SCH ×2 (08:48→20:18)
[2020-10-18] MEDS ORDERED: Aspirin 81 mg Enteric Coated Tablet PO SCH ×2 (09:00)
[2020-10-18] MEDS ORDERED: Apixaban 2.5 MG TAB PO SCH (09:00)
[2020-10-18] MEDS: Lactated Ringer's 1,000 ML IV SCH ×2 (11:03→23:31)
[2020-10-18] MEDS: Cefepime 2 GM in Sodium Chloride 0.9% 100 ML IVPB SCH ×2 (11:23→23:29)
[2020-10-18] MEDS ORDERED: Heparin 1,000 UNITS/ML VIAL ONE (12:27)
[2020-10-18] MEDS: Donepezil HCl 10 MG TAB PO SCH (20:12)
[2020-10-18] MEDS: Folic Acid 1 MG TAB PO SCH (20:12)
[2020-10-18] MEDS: Cyanocobalamin (Vitamin B-12) 1,000 MCG TAB PO SCH (20:18)
[2020-10-19] MEDS: Levothyroxine Sodium 50 MCG TAB PO SCH (05:41)
[2020-10-19 06:06] LABS: #Basophils 0.1 thou/uL (0.0-0.2); #Eosinphils 0.3 thou/uL (0.0-0.7); #Lymphocytes 1.9 thou/uL (1.20-3.40); #Monocytes 0.9 thou/uL (0.11-0.59); #Neutrophils 5.7 thou/uL (1.40-6.50); %Basophils 0.9 % (0.0-1.0); %Eosinophils 3.9 % (0.0-10.0); %Lymphocytes 20.9 % (21.0-51.0); %Monocytes 9.6 % (0.0-10.0); %Neutrophils 64.7 % (42.0-75.0); Hemoglobin 7.2 g/dL (12.0-16.0); Mean Corpuscular HGB CONC 31.6 g/dL (32.0-36.0); Mean Corpuscular Volume 91.7 fL (78.0-98.0); Mean Platelet Volume 7.4 fL (7.4-10.4); Platelet Count 278 thou/uL (130-400); Red Blood Cell (RBC) Count 2.48 mill/uL (4.20-5.40); White Blood Cell (WBC) Count 8.9 thou/uL (4.8-10.8)
[2020-10-19 06:28] LABS: Anion Gap 11 mmol/L (10-20); BUN (Urea Nitrogen) 13 mg/dL (9.8-20.1); Calc. Creatinine Clearance 74 mL/min (70-130); Calcium 7.7 mg/dL (7.8-10.44); Carbon Dioxide 27 mmol/L (23-31); Chloride 107 mmol/L (98-107); Glucose 81 mg/dL (83-110); Potassium 3.6 mmol/L (3.5-5.1); Sodium 141 mmol/L (136-145)
[2020-10-19] MEDS: OLANZapine 2.5 MG TAB PO SCH ×2 (08:43→20:18)
[2020-10-19] MEDS: Senokot S 8.6-50 MG TAB PO SCH ×2 (08:43→20:18)
[2020-10-19] MEDS: Tamsulosin HCl 0.4 MG CAP PO SCH (08:43)
[2020-10-19] MEDS: Fluconazole 100 MG TAB PO SCH (08:43)
[2020-10-19] MEDS: Polyethylene Glycol 3350 17 GM Packet PO SCH ×2 (08:43→20:19)
--- NOTE | 2020-10-19 11:11 | PRG ---
DATE OF SERVICE: 10/19/2020 REASON FOR CONSULTATION: Anemia. SUBJECTIVE: Per nursing staff and per the patient's sitter, there were no acute events or problems overnight. She continues to have no evidence of bleeding in the form of hematemesis, melena, or hematochezia. In fact, at this point, the patient remains asymptomatic with no problems at all. Per nursing staff, however, her urine has become a slightly darker color of orange that could be indicative of possible bleeding. Otherwise, no mention of nausea, vomiting, fevers, chills, GI bleeding, abdominal pain, diarrhea, or constipation. OBJECTIVE: VITAL SIGNS: Temperature 98.4, pulse 75, blood pressure 115/71, respiratory rate 16, and saturating 93% on room air. GENERAL: The patient is lying in bed, in no acute distress. Alert and oriented x2. CARDIOVASCULAR: Regular rate and rhythm. RESPIRATORY: Clear to auscultation bilaterally. ABDOMEN: Normoactive bowel sounds. Soft, nontender, and nondistended. EXTREMITIES: No cyanosis, clubbing, or edema. LABORATORY DATA: CBC with a white blood cell count of 8.9, hemoglobin 7.2, hematocrit 22.8, platelets 278. Chemistry with a sodium of 141, potassium 3.6, chloride 107, CO2 of 27, BUN 13, creatinine 0.61, and glucose 81. IMAGING DATA: No current GI imaging is available for review. ASSESSMENT AND PLAN: The patient is a 80-year-old female with past medical history of chronic lower back pain, diverticulosis, hypertension, generalized anxiety disorder, hypothyroidism, atrial fibrillation on chronic anticoagulation, dementia, and chronic constipation requiring fecal disimpaction a few months ago, now presenting with anemia of unknown origin. Anemia of unknown origin. The patient is presenting with a decline in her H and H with an admitting hemoglobin of 6 during this admission. She responded well to the infusion of 1 unit of PRBCs, but has been slowly downtrending over the last 24 to 48 hours. At this time, she does not have any evidence of acute blood loss from any source with initial iron indices consistent with anemia of chronic disease rather than acute GI blood loss. At this time, the origin of her anemia is largely unknown, but the differential could include occult GI bleeding, anemia of chronic disease with iatrogenic blood loss (frequent lab draws), cystitis, or bleeding into the urinary tract, and/or retroperitoneal bleed (less likely). RECOMMENDATIONS: 1. We would continue to trend her H and H and transfuse as necessary to maintain an H and H of 7/21. 2. Continue to monitor clinically for signs of active GI bleeding. 3. Continue B12 and folic acid supplementation. 4. We would order a tagged red cell scan today for possible further localization of the bleeding source. 5. We would order urinalysis for evaluation of possible bleeding within the urinary tract. 6. We would hold anticoagulation in light of her decreasing Hemoglobin and hematocrit. 7. If the tagged red cell scan is negative and there was no significant bleeding within the urinary tract, then I would proceed with both EGD and colonoscopy tomorrow for further evaluation. 8. We will continue to follow. Please call with any questions. Job ID: [id number]
[2020-10-19 11:19] LABS: Bacteria/HPF None Seen HPF (None Seen); Bilirubin Negative (Negative); Blood, Urine Negative (Negative); Clarity Clear (Clear); Glucose, Urine (Dipstick) Normal (Negative); Ketone, Urine Trace mg/dL (Negative); Leukocyte 75 Leu/uL (Negative); Nitrite Negative (Negative); Protein, Urine (Dipstick) 20 mg/dL (Neg-Trace); Specific Gravity, Urine 1.021 (1.002-1.036); Urobilinogen Normal mg/dL (Less than 2); pH, Urine 5.5 (5.0-9.0)
[2020-10-19] MEDS: Cefepime 2 GM in Sodium Chloride 0.9% 100 ML IVPB SCH ×2 (11:51→23:02)
[2020-10-19] MEDS: Lactated Ringer's 1,000 ML IV SCH (11:52)
--- NOTE | 2020-10-19 14:54 | PDOC.HOSPP ---
- Subjective Encounter Date: 10/19/20 Encounter Time: 10:00 Subjective: is calm and responds to verbal stimuli, not fully oriented sitter at bedside no rectal bleeding per staff - Objective Vital Signs & Weight: Vital Signs (12 hours) Temp Pulse Resp BP Pulse Ox 10/19/20 07:51 98.4 F 10/19/20 07:41 75 16 115/71 93 L Weight Weight 137 lb 11.2 oz I&O: 10/18/20 10/19/20 10/20/20 06:59 06:59 06:59 Intake Total 3125 1100 Output Total 2050 950 Balance 1075 150 Result Diagrams: 10/19/20 05:27 10/19/20 05:27 Hospitalist ROS - Medication Medications: Active Medications Generic Name Dose Route Start Last Admin Trade Name Freq PRN Reason Stop Dose Admin Acetaminophen 650 mg 10/14/20 23:47 10/17/20 21:08 Acetaminophen 325 Mg Tab PO 650 mg Q4H PRN Administration Headache/Fever/Mild Pain (1-3) Cyanocobalamin 1,000 mcg 10/17/20 21:00 10/18/20 20:18 Cyanocobalamin (Vitamin B-12) 1,000 Mcg Tab PO 1,000 mcg HS GHADA Administration Donepezil HCl 10 mg 10/15/20 21:00 10/18/20 20:12 Donepezil Hcl 10 Mg Tab PO 10 mg HS GHADA Administration Fluconazole 200 mg 10/15/20 09:00 10/19/20 08:43 Fluconazole 100 Mg Tab PO 10/29/20 09:01 200 mg DAILY GHADA Administration Folic Acid 1 mg 10/17/20 21:00 10/18/20 20:12 Folic Acid 1 Mg Tab PO 1 mg 2100 GHADA Administration Lactated Ringer's 1,000 mls @ 75 mls/hr 10/15/20 02:15 10/19/20 11:52 Lactated Ringer's IV 1,000 mls .[id number] GHADA Administration Cefepime HCl 2 gm/ Sodium 100 mls @ 200 mls/hr 10/16/20 12:00 10/19/20 11:51 Chloride IVPB 100 mls 1200,2359 GHADA Administration Levothyroxine Sodium 25 mcg 10/15/20 06:00 10/19/20 05:41 Levothyroxine Sodium 50 Mcg Tab PO 25 mcg 0600 GHADA Administration Memantine 10 mg 10/15/20 09:00 10/19/20 08:43 Memantine Hcl 10 Mg Tab PO 10 mg BID GHADA Administration Metoprolol Succinate 75 mg 10/15/20 09:00 10/19/20 08:43 Metoprolol Succinate Xl 25 Mg Tab PO 75 mg DAILY GHADA Administration Olanzapine 2.5 mg 10/15/20 09:00 10/19/20 08:43 Olanzapine 2.5 Mg Tab PO 2.5 mg BID GHADA Administration Pantoprazole Sodium 40 mg 10/15/20 09:00 10/19/20 08:43 Pantoprazole 40 Mg Tab PO 40 mg BID GHADA Administration Polyethylene Glycol 17 gm 10/15/20 09:00 10/19/20 08:43 Polyethylene Glycol 3350 17 Gm Packet PO 17 gm BID GHADA Administration Senna/Docusate Sodium 2 tab 10/15/20 09:00 10/19/20 08:43 Senokot S 8.6-50 Mg Tab PO 2 tab BID GHADA Administration Tamsulosin HCl 0.4 mg 10/15/20 09:00 10/19/20 08:43 Tamsulosin Hcl 0.4 Mg Cap PO 0.4 mg DAILY GHADA Administration - Exam General Appearance: awake alert Eye: anicteric sclera ENT: no oropharyngeal lesions, dry oral mucosa Neck: supple, no JVD Heart: RRR, no murmur Respiratory: no wheezes, no rales Gastrointestinal: soft, non-tender, non-distended, normal bowel sounds Extremities: no cyanosis, no edema Neurological: cranial nerve grossly intact, no focal deficits Hosp A/P (1) Acute encephalopathy Code(s): G93.40 - ENCEPHALOPATHY, UNSPECIFIED Status: Acute (2) Anemia due to blood loss, acute Code(s): D62 - ACUTE POSTHEMORRHAGIC ANEMIA Status: Suspected (3) COVID-19 Code(s): U07.1 - COVID-19 Status: Chronic (4) UTI (urinary tract infection) Status: Resolved Qualifiers: Urinary tract infection type: acute cystitis Hematuria presence: without hematuria Qualified Code(s): N30.00 - Acute cystitis without hematuria (5) Atrial fibrillation Code(s): I48.91 - UNSPECIFIED ATRIAL FIBRILLATION Status: Chronic (6) Dementia Code(s): F03.90 - UNSPECIFIED DEMENTIA WITHOUT BEHAVIORAL DISTURBANCE Status: Chronic Qualifiers: Dementia type: unspecified type Dementia behavioral disturbance: without behavioral disturbance Qualified Code(s): F03.90 - Unspecified dementia without behavioral disturbance (7) Generalized anxiety disorder Code(s): F41.1 - GENERALIZED ANXIETY DISORDER Status: Chronic (8) HTN (hypertension) Code(s): I10 - ESSENTIAL (PRIMARY) HYPERTENSION Status: Chronic Qualifiers: Hypertension type: essential hypertension Qualified Code(s): I10 - Essential (primary) hypertension (9) Hypothyroidism Code(s): E03.9 - HYPOTHYROIDISM, UNSPECIFIED Status: Chronic Qualifiers: Hypothyroidism type: unspecified Qualified Code(s): E03.9 - Hypothyroidism, unspecified (10) Vitamin D deficiency Code(s): E55.9 - VITAMIN D DEFICIENCY, UNSPECIFIED Status: Chronic - Plan serial h/h, will transfuse if < 05/28 unclear source of low Hb, for tagged rbc scan today, d/w prior h/o diverticulosis, recieved 1 u prbc on 10/15 dc asp and eliquis in view of low h/h continue iv fluids, toprol xl, zyprexa, namenda, aricept, protonix flomax is on cefepime and diflucan, will switch to oral agents in am has chronic anemia, not sure if higher ferritin is due to recent covid infection in aug mcv is 91, folic acid def on supplementation now hemostable prognosis guarded, tried calling son x2 this am around 11, couldn't reach him.
[2020-10-19 15:27] LABS: Hemoglobin 7.5 g/dL (12.0-16.0)
[2020-10-19] MEDS: Donepezil HCl 10 MG TAB PO SCH (20:17)
[2020-10-19] MEDS: Folic Acid 1 MG TAB PO SCH (20:17)
[2020-10-19] MEDS: Cyanocobalamin (Vitamin B-12) 1,000 MCG TAB PO SCH (20:19)
[2020-10-20] MEDS: Lactated Ringer's 1,000 ML IV SCH ×2 (04:57→14:15)
[2020-10-20] MEDS: Levothyroxine Sodium 50 MCG TAB PO SCH (05:20)
[2020-10-20 05:34] LABS: #Basophils 0.1 thou/uL (0.0-0.2); #Eosinphils 0.3 thou/uL (0.0-0.7); #Monocytes 0.8 thou/uL (0.11-0.59); #Neutrophils 5.5 thou/uL (1.40-6.50); %Basophils 0.6 % (0.0-1.0); %Eosinophils 3.9 % (0.0-10.0); %Lymphocytes 23.3 % (21.0-51.0); %Monocytes 9.2 % (0.0-10.0); %Neutrophils 63.1 % (42.0-75.0); Hemoglobin 7.7 g/dL (12.0-16.0); Mean Corpuscular HGB CONC 32.4 g/dL (32.0-36.0); Mean Corpuscular Hemoglobin 29.6 pg (27.0-31.0); Mean Corpuscular Volume 91.5 fL (78.0-98.0); Mean Platelet Volume 7.2 fL (7.4-10.4); Platelet Count 295 thou/uL (130-400); RBC Distribution Width 16.1 % (11.5-14.5); White Blood Cell (WBC) Count 8.7 thou/uL (4.8-10.8)
[2020-10-20 05:50] LABS: Anion Gap 12 mmol/L (10-20); BUN (Urea Nitrogen) 8 mg/dL (9.8-20.1); Calc. Creatinine Clearance 74 mL/min (70-130); Calcium 7.8 mg/dL (7.8-10.44); Carbon Dioxide 28 mmol/L (23-31); Chloride 106 mmol/L (98-107); Glucose 79 mg/dL (83-110); Potassium 3.6 mmol/L (3.5-5.1); Sodium 142 mmol/L (136-145)
[2020-10-20] MEDS: Fluconazole 100 MG TAB PO SCH (07:47)
[2020-10-20] MEDS: Tamsulosin HCl 0.4 MG CAP PO SCH (07:48)
[2020-10-20] MEDS: Polyethylene Glycol 3350 17 GM Packet PO SCH ×2 (07:49→20:15)
[2020-10-20] MEDS: OLANZapine 2.5 MG TAB PO SCH ×2 (07:49→20:09)
[2020-10-20] MEDS: Senokot S 8.6-50 MG TAB PO SCH ×2 (07:49→23:02)
[2020-10-20] MEDS ORDERED: Ciprofloxacin 500 MG TAB PO SCH (08:15)
[2020-10-20] MEDS ORDERED: Lorazepam 2 MG/ML VIAL SLOW IVP SCH (12:00)
--- NOTE | 2020-10-20 12:40 | NM ---
. NUCLEAR MEDICINE GI BLEEDING SCAN: HISTORY: GI bleed, anemia Radiopharmaceutical: 27 mCi technetium 99m labeled RBCs injected intravenously FINDINGS: There is normal accumulation of tracer within the vascular system. No abnormal areas of tracer localization are seen in the abdomen and pelvis in a pattern of increased focal uptake and tracer movement with peristalsis. Physiologic activity is present within the urinary bladder, likely from a small amount of free techne tium. IMPRESSION: No evidence of active GI bleeding during imaging.
--- NOTE | 2020-10-20 12:53 | PDOC.HOSPP ---
- Subjective Encounter Date: 10/20/20 Encounter Time: 10:35 Subjective: awake, no nausea or abd pain is eating well per staff - Objective Vital Signs & Weight: Vital Signs (12 hours) Temp Pulse Resp BP Pulse Ox 10/20/20 07:59 97.2 F L 78 18 105/68 100 Weight Weight 137 lb 11.2 oz I&O: 10/19/20 10/20/20 10/21/20 06:59 06:59 06:59 Intake Total 1100 915 Output Total 950 2700 Balance 150 -1785 Result Diagrams: 10/20/20 05:17 10/20/20 05:17 Hospitalist ROS - Medication Medications: Active Medications Generic Name Dose Route Start Last Admin Trade Name Freq PRN Reason Stop Dose Admin Acetaminophen 650 mg 10/14/20 23:47 10/17/20 21:08 Acetaminophen 325 Mg Tab PO 650 mg Q4H PRN Administration Headache/Fever/Mild Pain (1-3) Cyanocobalamin 1,000 mcg 10/17/20 21:00 10/19/20 20:19 Cyanocobalamin (Vitamin B-12) 1,000 Mcg Tab PO 1,000 mcg HS GHADA Administration Donepezil HCl 10 mg 10/15/20 21:00 10/19/20 20:17 Donepezil Hcl 10 Mg Tab PO 10 mg HS GHADA Administration Fluconazole 200 mg 10/15/20 09:00 10/20/20 07:47 Fluconazole 100 Mg Tab PO 10/29/20 09:01 200 mg DAILY GHADA Administration Folic Acid 1 mg 10/17/20 21:00 10/19/20 20:17 Folic Acid 1 Mg Tab PO 1 mg 2100 GHADA Administration Lactated Ringer's 1,000 mls @ 75 mls/hr 10/15/20 02:15 10/20/20 04:57 Lactated Ringer's IV Not Given .[id number] GHADA Levothyroxine Sodium 25 mcg 10/15/20 06:00 10/20/20 05:20 Levothyroxine Sodium 50 Mcg Tab PO 25 mcg 0600 GHADA Administration Lorazepam 1 mg 10/20/20 12:00 10/20/20 11:53 Lorazepam 2 Mg/Ml Vial SLOW IVP 10/20/20 14:00 1 mg NOW GHADA Administration Memantine 10 mg 10/15/20 09:00 10/20/20 07:49 Memantine Hcl 10 Mg Tab PO 10 mg BID GHADA Administration Metoprolol Succinate 75 mg 10/15/20 09:00 10/20/20 07:48 Metoprolol Succinate Xl 25 Mg Tab PO 75 mg DAILY GHADA Administration Olanzapine 2.5 mg 10/15/20 09:00 10/20/20 07:49 Olanzapine 2.5 Mg Tab PO 2.5 mg BID GHADA Administration Pantoprazole Sodium 40 mg 10/15/20 09:00 10/20/20 07:49 Pantoprazole 40 Mg Tab PO 40 mg BID GHADA Administration Polyethylene Glycol 17 gm 10/15/20 09:00 10/20/20 07:49 Polyethylene Glycol 3350 17 Gm Packet PO Not Given BID GHADA Senna/Docusate Sodium 2 tab 10/15/20 09:00 10/20/20 07:49 Senokot S 8.6-50 Mg Tab PO Not Given BID GHADA Tamsulosin HCl 0.4 mg 10/15/20 09:00 10/20/20 07:48 Tamsulosin Hcl 0.4 Mg Cap PO 0.4 mg DAILY GHADA Administration - Exam General Appearance: awake alert Eye: PERRL, anicteric sclera ENT: no oropharyngeal lesions, moist mucosa Neck: supple, no JVD Heart: RRR, no murmur Respiratory: no wheezes, no rales Gastrointestinal: soft, non-tender, non-distended, normal bowel sounds Extremities: no cyanosis, no edema Neurological: cranial nerve grossly intact, no focal deficits Hosp A/P (1) Acute encephalopathy Code(s): G93.40 - ENCEPHALOPATHY, UNSPECIFIED Status: Acute (2) Anemia due to blood loss, acute Code(s): D62 - ACUTE POSTHEMORRHAGIC ANEMIA Status: Suspected (3) COVID-19 Code(s): U07.1 - COVID-19 Status: Chronic (4) UTI (urinary tract infection) Status: Resolved Qualifiers: Urinary tract infection type: acute cystitis Hematuria presence: without hematuria Qualified Code(s): N30.00 - Acute cystitis without hematuria (5) Atrial fibrillation Code(s): I48.91 - UNSPECIFIED ATRIAL FIBRILLATION Status: Chronic (6) Dementia Code(s): F03.90 - UNSPECIFIED DEMENTIA WITHOUT BEHAVIORAL DISTURBANCE Status: Chronic Qualifiers: Dementia type: unspecified type Dementia behavioral disturbance: without behavioral disturbance Qualified Code(s): F03.90 - Unspecified dementia without behavioral disturbance (7) Generalized anxiety disorder Code(s): F41.1 - GENERALIZED ANXIETY DISORDER Status: Chronic (8) HTN (hypertension) Code(s): I10 - ESSENTIAL (PRIMARY) HYPERTENSION Status: Chronic Qualifiers: Hypertension type: essential hypertension Qualified Code(s): I10 - Essential (primary) hypertension (9) Hypothyroidism Code(s): E03.9 - HYPOTHYROIDISM, UNSPECIFIED Status: Chronic Qualifiers: Hypothyroidism type: unspecified Qualified Code(s): E03.9 - Hypothyroidism, unspecified (10) Vitamin D deficiency Code(s): E55.9 - VITAMIN D DEFICIENCY, UNSPECIFIED Status: Chronic - Plan unclear source of low Hb, likely dilutional?, is stable last 24hrs now, tagged rbc scan shows no evidence of bleed in abd/pelvis prior h/o diverticulosis, recieved 1 u prbc on 10/15 dc asp and eliquis in view of low h/h toprol xl, zyprexa, namenda, aricept, protonix, flomax, cipro has chronic anemia, not sure if higher ferritin is due to recent covid infection in aug mcv is 91, folic acid def on supplementation now hemostable prognosis guarded
--- NOTE | 2020-10-20 17:26 | PRG ---
DATE OF SERVICE: 10/20/2020 REASON FOR CONSULTATION: Anemia. SUBJECTIVE: Per nursing staff and per the patient sitter, there were no acute events or problems overnight. She has not displayed any evidence of bleeding in the form of hematemesis, melena, or hematochezia since she was admitted a few days ago. Currently denying any nausea, vomiting, fevers, chills, GI bleeding, or abdominal pain. OBJECTIVE: VITAL SIGNS: Temperature 97.7, pulse 72, blood pressure 108/72, respiratory rate 18, and saturating 100% on room air. GENERAL: The patient was lying in bed, in no acute distress. Alert and oriented x2. CARDIOVASCULAR: Regular rate and rhythm. RESPIRATORY: Clear to auscultation bilaterally. ABDOMEN: Normoactive bowel sounds. Soft, nontender, and nondistended. EXTREMITIES: No cyanosis, clubbing, or edema. LABORATORY DATA: CBC with a white blood cell count of 8.7, hemoglobin 7.7, hematocrit 23.8, and platelets 295. Chemistry with a sodium of 142, potassium 3.6, chloride 106, CO2 of 28, BUN 8, creatinine 0.61, and glucose 79. IMAGING DATA: The patient underwent a tagged RBC scan on 10/19/2020, which showed no evidence of GI bleeding. ASSESSMENT AND PLAN: The patient is a 80-year-old female with past medical history of chronic lower back pain; diverticulosis; hypertension; generalized anxiety disorder; hypothyroidism; atrial fibrillation, on chronic anticoagulation; dementia; and chronic constipation, requiring fecal disimpaction a few months ago (resolved), now presenting with anemia of unknown origin. Anemia of unknown origin: The patient initially presented with a decline in her hemoglobin and hematocrit with an admitting hemoglobin of 6. She responded well to the infusion of 1 unit of packed red blood cells, but responded inappropriately to a hemoglobin 9.2. Over the last few days, I think the patient has equalized her intravascular space and now has a hemoglobin of 7.7, which is more consistent with only the infusion of 1 unit of packed red blood cells. During this entire hospitalization, she has not had any evidence of bleeding from any source and iron indices on admission were consistent with anemia of chronic disease rather than acute gastrointestinal blood loss. During the course of this admission, she did have a tagged red cell scan as well, which also did show no evidence of gastrointestinal bleeding. At this point, I think her anemia is largely related to her anemia of chronic disease with iatrogenic blood loss (frequent lab draws). While she did have some blood in her urine, it was contaminated sample, so hematuria is unreliable at this time. RECOMMENDATIONS: 1. Would continue to trend her hemoglobin and hematocrit and transfuse as necessary to maintain the hemoglobin and hematocrit of 7/21. However, I would also caution limited blood draws as well. 2. Continue to monitor clinically for signs of active GI bleeding. 3. Continue B12 and folic acid supplementation. 4. Would continue to hold anticoagulation in light of her decreasing hemoglobin and hematocrit for another 24 to 48 hours until another blood draw showing either stabilization or up-trending of her hemoglobin and hematocrit. 5. At this time, the EGD and colonoscopy are not indicated given her current laboratory findings and negative tagged red cell scan. We will sign off. Please call with any questions. Job ID: [id number]
[2020-10-20] MEDS: Ciprofloxacin 500 MG TAB PO SCH (20:10)
[2020-10-20] MEDS: Donepezil HCl 10 MG TAB PO SCH (20:10)
[2020-10-20] MEDS: Folic Acid 1 MG TAB PO SCH (23:02)
[2020-10-20] MEDS: Cyanocobalamin (Vitamin B-12) 1,000 MCG TAB PO SCH (23:02)
[2020-10-21] MEDS: Acetaminophen 325 MG TAB PO PRN (01:20)
[2020-10-21] MEDS: Lactated Ringer's 1,000 ML IV SCH ×2 (01:20→18:21)
[2020-10-21 05:37] LABS: #Eosinphils 0.2 thou/uL (0.0-0.7); #Lymphocytes 1.6 thou/uL (1.20-3.40); #Monocytes 0.7 thou/uL (0.11-0.59); #Neutrophils 8.2 thou/uL (1.40-6.50); %Basophils 0.2 % (0.0-1.0); %Eosinophils 1.7 % (0.0-10.0); %Monocytes 6.9 % (0.0-10.0); %Neutrophils 76.2 % (42.0-75.0); Hemoglobin 7.4 g/dL (12.0-16.0); Mean Corpuscular HGB CONC 32.2 g/dL (32.0-36.0); Mean Corpuscular Hemoglobin 29.9 pg (27.0-31.0); Mean Platelet Volume 6.9 fL (7.4-10.4); Platelet Count 272 thou/uL (130-400); Red Blood Cell (RBC) Count 2.46 mill/uL (4.20-5.40); White Blood Cell (WBC) Count 10.8 thou/uL (4.8-10.8)
[2020-10-21 05:58] LABS: Anion Gap 10 mmol/L (10-20); BUN (Urea Nitrogen) 6 mg/dL (9.8-20.1); Calc. Creatinine Clearance 80 mL/min (70-130); Calcium 7.7 mg/dL (7.8-10.44); Carbon Dioxide 29 mmol/L (23-31); Chloride 105 mmol/L (98-107); Glucose 78 mg/dL (83-110); Potassium 3.6 mmol/L (3.5-5.1); Sodium 140 mmol/L (136-145)
[2020-10-21] MEDS: Ciprofloxacin 500 MG TAB PO SCH (06:02)
[2020-10-21] MEDS: Levothyroxine Sodium 50 MCG TAB PO SCH (06:02)
[2020-10-21] MEDS: Senokot S 8.6-50 MG TAB PO SCH (11:11)
[2020-10-21] MEDS: Polyethylene Glycol 3350 17 GM Packet PO SCH (11:11)
[2020-10-21] MEDS: Tamsulosin HCl 0.4 MG CAP PO SCH (11:36)
[2020-10-21] MEDS: OLANZapine 2.5 MG TAB PO SCH (11:36)
[2020-10-21] MEDS: Fluconazole 100 MG TAB PO SCH (11:36)
--- NOTE | 2020-10-21 14:12 | PDOC.HOSPP ---
- Subjective Encounter Date: 10/21/20 Encounter Time: 10:10 Subjective: is slowly waking up not in distress - Objective Vital Signs & Weight: Vital Signs (12 hours) Temp Pulse Resp BP Pulse Ox 10/21/20 08:00 97.3 F L 74 16 111/61 100 10/21/20 06:25 97.7 F 76 20 112/78 98 Weight Weight 137 lb 11.2 oz I&O: 10/20/20 10/21/20 10/22/20 06:59 06:59 06:59 Intake Total 915 Output Total 2700 Balance -1785 Result Diagrams: 10/21/20 05:26 10/21/20 05:25 Hospitalist ROS - Medication Medications: Active Medications Generic Name Dose Route Start Last Admin Trade Name Freq PRN Reason Stop Dose Admin Acetaminophen 650 mg 10/14/20 23:47 10/21/20 01:20 Acetaminophen 325 Mg Tab PO 650 mg Q4H PRN Administration Headache/Fever/Mild Pain (1-3) Ciprofloxacin 500 mg 10/20/20 20:00 10/21/20 06:02 Ciprofloxacin 500 Mg Tab PO 500 mg 06,1999 GHADA Administration Cyanocobalamin 1,000 mcg 10/17/20 21:00 10/20/20 23:02 Cyanocobalamin (Vitamin B-12) 1,000 Mcg Tab PO 1,000 mcg HS GHADA Administration Donepezil HCl 10 mg 10/15/20 21:00 10/20/20 20:10 Donepezil Hcl 10 Mg Tab PO 10 mg HS GHADA Administration Fluconazole 200 mg 10/15/20 09:00 10/21/20 11:36 Fluconazole 100 Mg Tab PO 10/29/20 09:01 Not Given DAILY GHADA Folic Acid 1 mg 10/17/20 21:00 10/20/20 23:02 Folic Acid 1 Mg Tab PO 1 mg 2100 GHADA Administration Lactated Ringer's 1,000 mls @ 75 mls/hr 10/15/20 02:15 10/21/20 01:20 Lactated Ringer's IV 1,000 mls .[id number] GHADA Administration Levothyroxine Sodium 25 mcg 10/15/20 06:00 10/21/20 06:02 Levothyroxine Sodium 50 Mcg Tab PO 25 mcg 0600 GHADA Administration Memantine 10 mg 10/15/20 09:00 10/21/20 11:36 Memantine Hcl 10 Mg Tab PO Not Given BID [facility] [place] Metoprolol Succinate 75 mg 10/15/20 09:00 10/21/20 11:36 Metoprolol Succinate Xl 25 Mg Tab PO Not Given DAILY [facility] [place] Olanzapine 2.5 mg 10/15/20 09:00 10/21/20 11:36 Olanzapine 2.5 Mg Tab PO Not Given BID GHADA Pantoprazole Sodium 40 mg 10/15/20 09:00 10/21/20 11:36 Pantoprazole 40 Mg Tab PO Not Given BID GHADA Polyethylene Glycol 17 gm 10/15/20 09:00 10/21/20 11:11 Polyethylene Glycol 3350 17 Gm Packet PO Not Given BID GHADA Senna/Docusate Sodium 2 tab 10/15/20 09:00 10/21/20 11:11 Senokot S 8.6-50 Mg Tab PO Not Given BID GHADA Tamsulosin HCl 0.4 mg 10/15/20 09:00 10/21/20 11:36 Tamsulosin Hcl 0.4 Mg Cap PO Not Given DAILY GHADA - Exam General Appearance: NAD Eye: PERRL, anicteric sclera ENT: no oropharyngeal lesions, moist mucosa Neck: supple, no JVD Heart: RRR, no murmur Respiratory: no wheezes, no rales Gastrointestinal: soft, non-tender, non-distended, normal bowel sounds Extremities: no cyanosis, no edema Neurological: cranial nerve grossly intact, no focal deficits Hosp A/P (1) Acute encephalopathy Code(s): G93.40 - ENCEPHALOPATHY, UNSPECIFIED Status: Resolved (2) Anemia due to blood loss, acute Code(s): D62 - ACUTE POSTHEMORRHAGIC ANEMIA Status: Suspected (3) COVID-19 Code(s): U07.1 - COVID-19 Status: Chronic (4) UTI (urinary tract infection) Status: Resolved Qualifiers: Urinary tract infection type: acute cystitis Hematuria presence: without hematuria Qualified Code(s): N30.00 - Acute cystitis without hematuria (5) Atrial fibrillation Code(s): I48.91 - UNSPECIFIED ATRIAL FIBRILLATION Status: Chronic (6) Dementia Code(s): F03.90 - UNSPECIFIED DEMENTIA WITHOUT BEHAVIORAL DISTURBANCE Status: Chronic Qualifiers: Dementia type: unspecified type Dementia behavioral disturbance: without behavioral disturbance Qualified Code(s): F03.90 - Unspecified dementia without behavioral disturbance (7) Generalized anxiety disorder Code(s): F41.1 - GENERALIZED ANXIETY DISORDER Status: Chronic (8) HTN (hypertension) Code(s): I10 - ESSENTIAL (PRIMARY) HYPERTENSION Status: Chronic Qualifiers: Hypertension type: essential hypertension Qualified Code(s): I10 - Essential (primary) hypertension (9) Hypothyroidism Code(s): E03.9 - HYPOTHYROIDISM, UNSPECIFIED Status: Chronic Qualifiers: Hypothyroidism type: unspecified Qualified Code(s): E03.9 - Hypothyroidism, unspecified (10) Vitamin D deficiency Code(s): E55.9 - VITAMIN D DEFICIENCY, UNSPECIFIED Status: Chronic - Plan unclear source of low Hb, likely dilutional?, is stable last 36hrs now, tagged rbc scan shows no evidence of bleed in abd/pelvis prior h/o diverticulosis, recieved 1 u prbc on 10/15 dc asp and eliquis in view of low h/h toprol xl, zyprexa, namenda, aricept, protonix, flomax, cipro has chronic anemia, not sure if higher ferritin is due to recent covid infection in aug mcv is 91, folic acid def on supplementation now hemostable prognosis guarded may dc anytime to snf if accepted may dc sitter and bring her closer to nursing station with bed alarms for help with ambulation
[2020-10-21 23:16] LABS: Hemoglobin 6.9 g/dL (12.0-16.0)
[2020-10-21 23:44] LABS: Anion Gap 10 mmol/L (10-20); BUN (Urea Nitrogen) 7 mg/dL (9.8-20.1); Calc. Creatinine Clearance 83 mL/min (70-130); Calcium 7.3 mg/dL (7.8-10.44); Carbon Dioxide 27 mmol/L (23-31); Chloride 105 mmol/L (98-107); Glucose 85 mg/dL (83-110); Magnesium 1.7 mg/dL (1.6-2.6); Potassium 3.6 mmol/L (3.5-5.1); Sodium 138 mmol/L (136-145)
[2020-10-21 23:47] LABS: Lactic Acid 1.4 mmol/L (0.5-2.2)
[2020-10-22] MEDS: OLANZapine 2.5 MG TAB PO SCH ×3 (00:17→20:07)
[2020-10-22] MEDS: Ciprofloxacin 500 MG TAB PO SCH ×3 (00:17→20:06)
[2020-10-22] MEDS: Polyethylene Glycol 3350 17 GM Packet PO SCH ×3 (00:17→20:07)
[2020-10-22] MEDS: Donepezil HCl 10 MG TAB PO SCH ×2 (00:17→20:07)
[2020-10-22] MEDS: Folic Acid 1 MG TAB PO SCH ×2 (00:17→20:07)
[2020-10-22] MEDS: Senokot S 8.6-50 MG TAB PO SCH ×3 (00:18→20:07)
[2020-10-22] MEDS: Cyanocobalamin (Vitamin B-12) 1,000 MCG TAB PO SCH ×2 (00:18→20:07)
[2020-10-22] MEDS: Lactated Ringer's 1,000 ML IV SCH (04:24)
[2020-10-22] MEDS: Levothyroxine Sodium 50 MCG TAB PO SCH (05:43)
[2020-10-22 06:13] LABS: #Eosinphils 0.2 thou/uL (0.0-0.7); #Lymphocytes 1.6 thou/uL (1.20-3.40); #Monocytes 0.6 thou/uL (0.11-0.59); #Neutrophils 5.2 thou/uL (1.40-6.50); %Basophils 0.5 % (0.0-1.0); %Eosinophils 2.6 % (0.0-10.0); %Lymphocytes 21.3 % (21.0-51.0); %Monocytes 7.4 % (0.0-10.0); %Neutrophils 68.3 % (42.0-75.0); Hemoglobin 6.8 g/dL (12.0-16.0); Mean Corpuscular HGB CONC 32.3 g/dL (32.0-36.0); Mean Corpuscular Hemoglobin 30.1 pg (27.0-31.0); Platelet Count 256 thou/uL (130-400); Red Blood Cell (RBC) Count 2.27 mill/uL (4.20-5.40); White Blood Cell (WBC) Count 7.6 thou/uL (4.8-10.8)
[2020-10-22 06:42] LABS: Anion Gap 11 mmol/L (10-20); BUN (Urea Nitrogen) 6 mg/dL (9.8-20.1); Calc. Creatinine Clearance 85 mL/min (70-130); Calcium 7.3 mg/dL (7.8-10.44); Carbon Dioxide 27 mmol/L (23-31); Chloride 104 mmol/L (98-107); Glucose 81 mg/dL (83-110); Potassium 3.6 mmol/L (3.5-5.1); Sodium 138 mmol/L (136-145)
--- NOTE | 2020-10-22 09:46 | ULT ---
US Soft Tissue Other History: Hematoma Comparison: None. Findings: Real-time grayscale evaluation of the right hip was performed. There is large deep hematoma on the right hip in the area of interest measuring up to 11.5 cm. Extens natasha overlying soft tissue swelling and skin thickening. Impression: Large deep right hip hematoma measuring up to 11.5 cm. This may be sequelae of fascial de gloving injury.
[2020-10-22] MEDS: Fluconazole 100 MG TAB PO SCH (10:00)
[2020-10-22] MEDS: Tamsulosin HCl 0.4 MG CAP PO SCH (10:00)
--- NOTE | 2020-10-22 12:37 | CON ---
DATE OF CONSULTATION: 10/22/2020 REQUESTING PHYSICIAN: Krish Cruz MD HISTORY OF PRESENT ILLNESS: This is a 80-year-old woman, who was admitted on 10/14/2020 with acute urinary tract infection and incidental findings of anemia, hemoglobin 6.6. By 10/15/2020, the patient had received a total of 1 unit of packed red blood cells. Her hemoglobin had improved to a high of 9.2 by 10/17/2020, and had drifted down to low 7.2 g/dL by 10/19/2020. The patient's hemoglobin remained stable between 10/19/2020 and today, where hemoglobin is noted at 6.8. Meanwhile, the patient denies any chest pain, syncope, or dyspnea. She has remained hemodynamically stable and afebrile since admission. Urinary output has been adequate for this patient's age and weight. The patient was on Eliquis and aspirin for chronic atrial fibrillation prior to this admission. She was also found to have bruising over her right hip on admission. An x-ray of the right hip was unremarkable for any fractures. Aspirin and Eliquis have been on hold since admission. A soft tissue ultrasound was obtained today, which revealed large right hip/right thigh hematoma. Currently, the patient denies any right hip pain. She denies any hematochezia or melena. She is tolerating diet and having bowel movement. PAST MEDICAL HISTORY: Pertinent for diverticulosis coli; essential hypertension; chronic back pain; senile dementia of Alzheimer's type; chronic atrial fibrillation, rate controlled; hypothyroidism; as well as gastroesophageal reflux disease. PAST SURGICAL HISTORY: Pertinent for total abdominal hysterectomy, cholecystectomy, and right knee arthroplasty. FAMILY HISTORY: Noncontributory for this patient's age. CURRENT MEDICATIONS: Include: 1. Donepezil 10 mg p.o. at bedtime. 2. Ciprofloxacin 500 mg p.o. b.i.d. 3. Namenda 10 mg p.o. b.i.d. 4. Levothyroxine 25 mcg p.o. daily. 5. Metoprolol 25 mg p.o. daily. 6. Tamsulosin 0.4 mg p.o. daily. 7. Fluconazole 200 mg p.o. daily. 8. Acetaminophen 650 mg p.o. q.4 hours p.r.n. pain. 9. Stool softeners. ALLERGIES: TO SULFA DRUGS AND CAFFEINE. REVIEW OF SYSTEMS: Ten-point review of systems unremarkable except as stated in past medical history and chief complaint. PHYSICAL EXAMINATION: GENERAL: This reveals a 80-year-old normally-developed woman, who is awake and alert and appears to be in no acute distress at time of my evaluation. CURRENT VITAL SIGNS: Include blood pressure 106/66, pulse 75 and irregular, respiratory rate is 16, maximum temperature in last 24 hours 98.5 degrees Fahrenheit, and oxygen saturation 100% on room air. HEENT: Reveals normocephalic and atraumatic. Pupils equally round and reactive to light and accommodation. NECK: She has no jugular venous distention noted. HEART: Reveals irregular rate and rhythm. LUNGS: Clear to auscultation bilaterally. Breathing, regular and nonlabored. ABDOMEN: Soft, nontender, nondistended. EXTREMITIES: Reveal 2+ radial and pedal pulses bilaterally. She has a 14 x 8 x 3 to 4 cm ballotable mass over the right hip and thigh with bruising of the overlying skin which is multicolored. There is no associated tenderness with this. NEUROLOGIC: Reveals no focal deficits present. LABORATORY FINDINGS: Today include a CBC with 7600 white blood cells, hemoglobin and hematocrit 6.8 and 21.1 respectively. Platelet count is 256,000. Metabolic profile; sodium 138, potassium 3.6, chloride is 104, bicarb is 27, BUN 6, creatinine 0.53, glucose is 81. I personally reviewed the soft tissue ultrasound of the right hip and thigh, which is remarkable for 11.5 cm hematoma. IMPRESSION: 1. Subacute blood-loss anemia. 2. Large right hip/thigh soft tissue hematoma, likely secondary to trauma while on anticoagulation, which is currently on hold. 3. There is no clinical evidence of ongoing hemorrhage at this time. RECOMMENDATIONS: 1. Continue to withhold anticoagulation until adequate hemostasis has been achieved. 2. May resume aspirin 81 mg p.o. daily within 1 week if hemoglobin remains stable and resume Eliquis in 2 weeks. 3. There is no surgical indication for this patient at this time. 4. General Surgery will sign off and be available to re-evaluate the patient on demand. Above findings and recommendations were discussed with the patient in the presence of her nurse at bedside. Thank you again, Dr. Cruz, for allowing me the opportunity to participate in the care of this patient. Job ID: [id number]
--- NOTE | 2020-10-22 14:05 | PDOC.HOSPP ---
- Subjective Encounter Date: 10/22/20 Encounter Time: 09:00 Subjective: no sob or bleeding per rectum no nausea, is tolerating oral diet has right hip pain on ambulation - Objective Vital Signs & Weight: Vital Signs (12 hours) Temp Pulse Resp BP BP Pulse Ox 10/22/20 10:16 98.5 F 75 16 106/66 100 10/22/20 08:26 98.3 F 74 14 105/69 100 10/22/20 05:52 98/61 Weight Weight 137 lb 11.2 oz I&O: 10/21/20 10/22/20 10/23/20 06:59 06:59 06:59 Intake Total 0 Output Total 625 Balance -625 0 Result Diagrams: 10/22/20 06:00 10/22/20 06:00 Additional Labs: Accuchecks 10/21/20 22:33 POC Glucose 82 Hospitalist ROS - Medication Medications: Active Medications Generic Name Dose Route Start Last Admin Trade Name Freq PRN Reason Stop Dose Admin Acetaminophen 650 mg 10/14/20 23:47 10/21/20 01:20 Acetaminophen 325 Mg Tab PO 650 mg Q4H PRN Administration Headache/Fever/Mild Pain (1-3) Ciprofloxacin 500 mg 10/20/20 20:00 10/22/20 05:43 Ciprofloxacin 500 Mg Tab PO 500 mg 06,1999 GHADA Administration Cyanocobalamin 1,000 mcg 10/17/20 21:00 10/22/20 00:18 Cyanocobalamin (Vitamin B-12) 1,000 Mcg Tab PO 1,000 mcg HS GHADA Administration Donepezil HCl 10 mg 10/15/20 21:00 10/22/20 00:17 Donepezil Hcl 10 Mg Tab PO 10 mg HS GHADA Administration Fluconazole 200 mg 10/15/20 09:00 10/22/20 10:00 Fluconazole 100 Mg Tab PO 10/29/20 09:01 200 mg DAILY GHADA Administration Folic Acid 1 mg 10/17/20 21:00 10/22/20 00:17 Folic Acid 1 Mg Tab PO 1 mg 2100 GHADA Administration Levothyroxine Sodium 25 mcg 10/15/20 06:00 10/22/20 05:43 Levothyroxine Sodium 50 Mcg Tab PO 25 mcg 0600 GHADA Administration Memantine 10 mg 10/15/20 09:00 10/22/20 10:00 Memantine Hcl 10 Mg Tab PO 10 mg BID GHADA Administration Metoprolol Succinate 25 mg 10/22/20 09:00 10/22/20 10:21 Metoprolol Succinate Xl 25 Mg Tab PO Not Given DAILY GHADA Olanzapine 2.5 mg 10/15/20 09:00 10/22/20 10:00 Olanzapine 2.5 Mg Tab PO 2.5 mg BID GHADA Administration Pantoprazole Sodium 40 mg 10/15/20 09:00 10/22/20 10:21 Pantoprazole 40 Mg Tab PO 40 mg BID GHADA Administration Polyethylene Glycol 17 gm 10/15/20 09:00 10/22/20 10:21 Polyethylene Glycol 3350 17 Gm Packet PO 17 gm BID GHADA Administration Senna/Docusate Sodium 2 tab 10/15/20 09:00 10/22/20 10:00 Senokot S 8.6-50 Mg Tab PO 2 tab BID GHADA Administration Tamsulosin HCl 0.4 mg 10/15/20 09:00 10/22/20 10:00 Tamsulosin Hcl 0.4 Mg Cap PO 0.4 mg DAILY GHADA Administration - Exam General Appearance: awake alert Eye: PERRL, anicteric sclera ENT: no oropharyngeal lesions, moist mucosa Neck: supple, no JVD Heart: RRR, no murmur Respiratory: no wheezes, no rales Gastrointestinal: soft, non-tender, non-distended, normal bowel sounds Extremities: no cyanosis, no edema Extremities - other findings: right hip edema, discoloration and tenderness+ Neurological: cranial nerve grossly intact, no focal deficits Hosp A/P (1) Acute encephalopathy Code(s): G93.40 - ENCEPHALOPATHY, UNSPECIFIED Status: Resolved (2) Anemia due to blood loss, acute Code(s): D62 - ACUTE POSTHEMORRHAGIC ANEMIA Status: Suspected (3) COVID-19 Code(s): U07.1 - COVID-19 Status: Chronic (4) UTI (urinary tract infection) Status: Resolved Qualifiers: Urinary tract infection type: acute cystitis Hematuria presence: without hematuria Qualified Code(s): N30.00 - Acute cystitis without hematuria (5) Atrial fibrillation Code(s): I48.91 - UNSPECIFIED ATRIAL FIBRILLATION Status: Chronic (6) Dementia Code(s): F03.90 - UNSPECIFIED DEMENTIA WITHOUT BEHAVIORAL DISTURBANCE Status: Chronic Qualifiers: Dementia type: unspecified type Dementia behavioral disturbance: without behavioral disturbance Qualified Code(s): F03.90 - Unspecified dementia without behavioral disturbance (7) Generalized anxiety disorder Code(s): F41.1 - GENERALIZED ANXIETY DISORDER Status: Chronic (8) HTN (hypertension) Code(s): I10 - ESSENTIAL (PRIMARY) HYPERTENSION Status: Chronic Qualifiers: Hypertension type: essential hypertension Qualified Code(s): I10 - Essential (primary) hypertension (9) Hypothyroidism Code(s): E03.9 - HYPOTHYROIDISM, UNSPECIFIED Status: Chronic Qualifiers: Hypothyroidism type: unspecified Qualified Code(s): E03.9 - Hypothyroidism, unspecified (10) Vitamin D deficiency Code(s): E55.9 - VITAMIN D DEFICIENCY, UNSPECIFIED Status: Chronic - Plan ac blood loss anemia sec to right thigh hematoma POA. prior h/o diverticulosis recieved 1 u prbc on 10/15, will get one more unit today off asp and eliquis in view of low h/h toprol xl, zyprexa, namenda, aricept, protonix, flomax, cipro has chronic anemia, not sure if higher ferritin is due to recent covid infection in aug mcv is 91, folic acid def on supplementation now hemostable prognosis guarded may dc to snf in am
[2020-10-23] MEDS: Ciprofloxacin 500 MG TAB PO SCH (05:09)
[2020-10-23] MEDS: Levothyroxine Sodium 50 MCG TAB PO SCH (05:09)
[2020-10-23 05:39] LABS: #Basophils 0.1 thou/uL (0.0-0.2); #Eosinphils 0.2 thou/uL (0.0-0.7); #Lymphocytes 1.3 thou/uL (1.20-3.40); #Monocytes 0.9 thou/uL (0.11-0.59); #Neutrophils 8.6 thou/uL (1.40-6.50); %Basophils 0.5 % (0.0-1.0); %Eosinophils 1.4 % (0.0-10.0); %Lymphocytes 11.9 % (21.0-51.0); %Monocytes 7.8 % (0.0-10.0); %Neutrophils 78.4 % (42.0-75.0); Hemoglobin 8.1 g/dL (12.0-16.0); Mean Corpuscular HGB CONC 32.1 g/dL (32.0-36.0); Mean Corpuscular Hemoglobin 30.1 pg (27.0-31.0); Mean Corpuscular Volume 93.8 fL (78.0-98.0); Mean Platelet Volume 7.1 fL (7.4-10.4); Platelet Count 274 thou/uL (130-400); RBC Distribution Width 15.4 % (11.5-14.5); White Blood Cell (WBC) Count 10.9 thou/uL (4.8-10.8)
[2020-10-23 06:36] LABS: Anion Gap 11 mmol/L (10-20); BUN (Urea Nitrogen) 11 mg/dL (9.8-20.1); Calc. Creatinine Clearance 83 mL/min (70-130); Calcium 7.6 mg/dL (7.8-10.44); Carbon Dioxide 25 mmol/L (23-31); Chloride 104 mmol/L (98-107); Glucose 109 mg/dL (83-110); Potassium 3.5 mmol/L (3.5-5.1); Sodium 136 mmol/L (136-145)
[2020-10-23] MEDS: OLANZapine 2.5 MG TAB PO SCH (08:19)
[2020-10-23] MEDS: Tamsulosin HCl 0.4 MG CAP PO SCH (08:20)
[2020-10-23] MEDS: Senokot S 8.6-50 MG TAB PO SCH (08:20)
[2020-10-23] MEDS: Fluconazole 100 MG TAB PO SCH (08:20)
[2020-10-23] MEDS: Polyethylene Glycol 3350 17 GM Packet PO SCH (08:21)
--- NOTE | 2020-10-23 13:20 | PDOC.HOSPP ---
- Subjective Encounter Date: 10/23/20 Encounter Time: 10:30 Subjective: awake, responds well to verbal stimuli is ambulating in room - Objective Vital Signs & Weight: Vital Signs (12 hours) Temp Pulse Resp BP Pulse Ox 10/23/20 08:00 98.4 F 84 20 128/50 L 94 L 10/23/20 04:00 98.5 F 85 18 120/67 100 Weight Weight 137 lb 11.2 oz I&O: 10/22/20 10/23/20 10/24/20 06:59 06:59 06:59 Intake Total 350 Output Total 481 1825 Balance -453 -2788 Result Diagrams: 10/23/20 05:12 10/23/20 05:12 Hospitalist ROS - Medication Medications: Active Medications Generic Name Dose Route Start Last Admin Trade Name Freq PRN Reason Stop Dose Admin Acetaminophen 650 mg 10/14/20 23:47 10/21/20 01:20 Acetaminophen 325 Mg Tab PO 650 mg Q4H PRN Administration Headache/Fever/Mild Pain (1-3) Ciprofloxacin 500 mg 10/20/20 20:00 10/23/20 05:09 Ciprofloxacin 500 Mg Tab PO 500 mg 06,1999 GHADA Administration Cyanocobalamin 1,000 mcg 10/17/20 21:00 10/22/20 20:07 Cyanocobalamin (Vitamin B-12) 1,000 Mcg Tab PO 1,000 mcg HS GHADA Administration Donepezil HCl 10 mg 10/15/20 21:00 10/22/20 20:07 Donepezil Hcl 10 Mg Tab PO 10 mg HS GHADA Administration Fluconazole 200 mg 10/15/20 09:00 10/23/20 08:20 Fluconazole 100 Mg Tab PO 10/29/20 09:01 200 mg DAILY GHADA Administration Folic Acid 1 mg 10/17/20 21:00 10/22/20 20:07 Folic Acid 1 Mg Tab PO 1 mg 2100 GHADA Administration Levothyroxine Sodium 25 mcg 10/15/20 06:00 10/23/20 05:09 Levothyroxine Sodium 50 Mcg Tab PO 25 mcg 0600 GHADA Administration Memantine 10 mg 10/15/20 09:00 10/23/20 08:20 Memantine Hcl 10 Mg Tab PO 10 mg BID GHADA Administration Metoprolol Succinate 25 mg 10/22/20 09:00 10/23/20 08:19 Metoprolol Succinate Xl 25 Mg Tab PO 25 mg DAILY GHADA Administration Olanzapine 2.5 mg 10/15/20 09:00 10/23/20 08:19 Olanzapine 2.5 Mg Tab PO 2.5 mg BID GHADA Administration Pantoprazole Sodium 40 mg 10/15/20 09:00 10/23/20 08:20 Pantoprazole 40 Mg Tab PO 40 mg BID GHADA Administration Polyethylene Glycol 17 gm 10/15/20 09:00 10/23/20 08:21 Polyethylene Glycol 3350 17 Gm Packet PO Not Given BID GHADA Senna/Docusate Sodium 2 tab 10/15/20 09:00 10/23/20 08:20 Senokot S 8.6-50 Mg Tab PO 2 tab BID GHADA Administration Tamsulosin HCl 0.4 mg 10/15/20 09:00 10/23/20 08:20 Tamsulosin Hcl 0.4 Mg Cap PO 0.4 mg DAILY GHADA Administration - Exam General Appearance: awake alert Eye: PERRL, anicteric sclera ENT: no oropharyngeal lesions, moist mucosa Neck: supple, no JVD Heart: RRR, no murmur Respiratory: no wheezes, no rales Gastrointestinal: soft, non-distended, normal bowel sounds Extremities: no cyanosis Extremities - other findings: right hip hematoma++ Neurological: cranial nerve grossly intact, no focal deficits Psychiatric: A&O x 3 Hosp A/P (1) Acute encephalopathy Code(s): G93.40 - ENCEPHALOPATHY, UNSPECIFIED Status: Resolved (2) Anemia due to blood loss, acute Code(s): D62 - ACUTE POSTHEMORRHAGIC ANEMIA Status: Suspected (3) COVID-19 Code(s): U07.1 - COVID-19 Status: Chronic (4) UTI (urinary tract infection) Status: Resolved Qualifiers: Urinary tract infection type: acute cystitis Hematuria presence: without hematuria Qualified Code(s): N30.00 - Acute cystitis without hematuria (5) Atrial fibrillation Code(s): I48.91 - UNSPECIFIED ATRIAL FIBRILLATION Status: Chronic (6) Dementia Code(s): F03.90 - UNSPECIFIED DEMENTIA WITHOUT BEHAVIORAL DISTURBANCE Status: Chronic Qualifiers: Dementia type: unspecified type Dementia behavioral disturbance: without behavioral disturbance Qualified Code(s): F03.90 - Unspecified dementia without behavioral disturbance (7) Generalized anxiety disorder Code(s): F41.1 - GENERALIZED ANXIETY DISORDER Status: Chronic (8) HTN (hypertension) Code(s): I10 - ESSENTIAL (PRIMARY) HYPERTENSION Status: Chronic Qualifiers: Hypertension type: essential hypertension Qualified Code(s): I10 - Essential (primary) hypertension (9) Hypothyroidism Code(s): E03.9 - HYPOTHYROIDISM, UNSPECIFIED Status: Chronic Qualifiers: Hypothyroidism type: unspecified Qualified Code(s): E03.9 - Hypothyroidism, unspecified (10) Vitamin D deficiency Code(s): E55.9 - VITAMIN D DEFICIENCY, UNSPECIFIED Status: Chronic - Plan ac blood loss anemia sec to right thigh hematoma POA. prior h/o diverticulosis recieved 1 u prbc on 10/15, will get one more unit today off asp and eliquis in view of low h/h toprol xl, zyprexa, namenda, aricept, protonix, flomax, cipro has chronic anemia, not sure if higher ferritin is due to recent covid infection in aug mcv is 91, folic acid def on supplementation now hemostable prognosis guarded may dc per CM/son recommendation
[2020-10-23 15:37] LABS: Methylmalonic Acid 68 nmol/L (0-378)
--- NOTE | 2020-10-23 15:54 | DIS ---
DATE OF ADMISSION: 10/14/2020 DATE OF DISCHARGE: 10/23/2020 DISCHARGE DISPOSITION: To [facility] with [facility]. PRIMARY DISCHARGE DIAGNOSES: 1. Acute metabolic encephalopathy, resolved. 2. Acute blood loss anemia secondary to massive right thigh hematoma, which was present on admission secondary to fall with patient being on Eliquis, which was held. 3. Chronic COVID-19 virus positive status. 4. Acute blood loss anemia secondary to right thigh hematoma, status post 2 units packed cell transfusion. 5. Chronic atrial fibrillation. 6. Dementia. 7. Generalized anxiety. 8. Hypertension. 9. Hypothyroidism. 10. Vitamin D deficiency. 11. Physical deconditioning. PROCEDURES DONE DURING HOSPITALIZATION: Chest x-ray done on the day of admission showed no active intrathoracic disease. Right hip x-ray done, showed no acute findings. Nuclear bleeding scan done showed no active GI bleeding. Soft tissue ultrasound of the right thigh area showed large deep right hip hematoma measuring up to 11.5 cm. Blood cultures x2, no growth. Urine culture grew Enterobacter cloacae, sensitive to cefepime, amikacin, quinolones, gentamicin, meropenem, and sulfa. Stool occult blood x1 was positive on admission. H and H at the time of discharge 8 and 25, platelet count 274. On admission, H and H were 6.6 and 20. Discharge BUN and creatinine 11 and 0.5. Ferritin 427, serum iron 38, TIBC 188, percent saturation 20. COVID-19 PCR was detected on 10/15/2020. DISCHARGE MEDICATIONS: 1. Donepezil 10 mg p.o. at bedtime. 2. Metoprolol succinate 25 mg p.o. daily. 3. Namenda 10 mg twice daily. 4. Synthroid 25 mcg p.o. daily. 5. Zyprexa 2.5 mg twice daily. 6. Ciprofloxacin 500 mg p.o. twice daily for another 3 days. 7. Ferrous sulfate 325 mg p.o. twice daily. 8. Flomax 0.4 mg p.o. daily. 9. Folic acid 1 mg p.o. daily. 10. Protonix 40 mg p.o. daily. 11. Vitamin B12 1000 mcg p.o. at bedtime. ALLERGIES: SULFA AND CAFFEINE. DISCHARGE PLAN: The patient to follow up with her primary care physician, Dr. Noyola, in 1 week. BRIEF COURSE DURING HOSPITALIZATION: The patient initially got admitted on the 7th after she was sent over from her assisted living facility for low blood pressure. The patient also had a hemoglobin of 6 g. She had right hip bruising secondary to fall. Initial x-ray did not reveal any fracture. The patient was given a unit of packed cell transfusion. She has also had consultation with GI for possible GI bleed. The patient has right hip bruising slowly got bigger and has had a soft tissue sonogram done, which showed a deep hematoma measuring up to 11.5 cm. The patient's Eliquis and aspirin along with Plavix were all held. She had a 2nd dip in her hemoglobin to 6.5 g and a 2nd unit of packed cell transfusion was given. The patient also had a nuclear bleeding scan done, which has not shown any bleeding in the GI system. She has had evaluation by Dr. Adams for General Surgery for the enlarging hematoma. Per Dr. Adams, no surgical intervention is needed. Her anticoagulation needs to be held. The patient's encephalopathy took nearly 6 days to resolve. She is at her baseline cognitive status from last 3 days. She has also ambulated nearly 150 feet with a rolling walker. Family is wanting her to go back to her [facility] with [facility], which has been arranged via Case Management. Please see, a [id number] documentation for the day of discharge on [place]. A total of 35 minutes was spent on discharge plan. Job ID: [id number] MTDD
[2020-10-23 19:34] VITALS: BP 120/77; TEMP 98
--- NOTE | 2020-10-26 10:58 | EKG ---
Test Reason : Blood Pressure : / mmHG Vent. Rate : 074 BPM Atrial Rate : 079 BPM P-R Int : 000 ms QRS Dur : 078 ms QT Int : 396 ms P-R-T Axes : 000 070 065 degrees QTc Int : 439 ms Atrial fibrillation with frequent ventricular-paced complexes Nonspecific ST and T wave abnormality Abnormal ECG Confirmed by EMIL COATES DO ([id number]), rewrite editor LANCE LARA ([id number]) on 10/26/2020 10:57:46 AM Referred By: Confirmed By:EMIL COATES DO
== END 2020-10-23 17:44 | disposition home health service (06) | DRG 871 ==
LOC: ERS 19:18 → T4-B 22:03
PROVIDERS: ADMIT Internal Medicine; ATTEND Internal Medicine
PROC: 30233N1 Transfusion of Nonautologous Red Blood Cells into Peripheral Vein, Percutaneous Approach (ICD-10-PCS; principal; 2020-10-14)
DX: A41.4 Sepsis due to anaerobes (principal); U07.1 COVID-19; G93.41 Metabolic encephalopathy; N30.00 Acute cystitis without hematuria; D62 Acute posthemorrhagic anemia; N17.9 Acute kidney failure, unspecified; Z16.19 Resistance to other specified beta lactam antibiotics; I48.20 Chronic atrial fibrillation, unspecified; Z66 Do not resuscitate; Z51.5 Encounter for palliative care; E03.9 Hypothyroidism, unspecified; I10 Essential (primary) hypertension; F41.1 Generalized anxiety disorder; Z96.651 Presence of right artificial knee joint; G89.29 Other chronic pain; M54.5 Low back pain; K59.09 Other constipation; E55.9 Vitamin D deficiency, unspecified; G30.9 Alzheimer's disease, unspecified; F02.80 Dementia in other diseases classified elsewhere, unspecified severity, without behavioral disturbance, psychotic disturbance, mood disturbance, and anxiety; K21.9 Gastro-esophageal reflux disease without esophagitis; S70.11XA Contusion of right thigh, initial encounter; W19.XXXA Unspecified fall, initial encounter; Z28.21 Immunization not carried out because of patient refusal; Z95.0 Presence of cardiac pacemaker; Z87.891 Personal history of nicotine dependence; Z87.440 Personal history of urinary (tract) infections; Z90.49 Acquired absence of other specified parts of digestive tract; Z90.710 Acquired absence of both cervix and uterus; Z88.2 Allergy status to sulfonamides; Z91.048 Other nonmedicinal substance allergy status; Z87.19 Personal history of other diseases of the digestive system; Z79.899 Other long term (current) drug therapy; Z79.82 Long term (current) use of aspirin; Z79.01 Long term (current) use of anticoagulants; Z79.890 Hormone replacement therapy
CPT/HCPCS: 36415; 36416; 36430; 71045; 76999; 78278; 80048; 80053; 81001; 81003; 81015; 82274; 82728; 83540; 83550; 83605; 83735; 83880; 83921; 84484; 85025; 86850; 86900; 86901; 87040; 87077; 87086; 87186; 87635; 93005; 96365; 96375; A9604; J0692; J0696; J1644; J2060; J3370; J3490; P9016; U0003

== ENCOUNTER 2021-04-19 15:02 | Inpatient (IN) | payer MEDICARE, OTHER ==
[2021-04-19 17:20] LABS: #Eosinphils 0.1 thou/uL (0.0-0.7); #Lymphocytes 2.1 thou/uL (1.20-3.40); #Monocytes 1.5 thou/uL (0.11-0.59); #Neutrophils 14.4 thou/uL (1.40-6.50); %Basophils 0.2 % (0.0-1.0); %Eosinophils 0.3 % (0.0-10.0); %Lymphocytes 11.7 % (21.0-51.0); %Monocytes 8.1 % (0.0-10.0); %Neutrophils 79.7 % (42.0-75.0); Hemoglobin 12.1 g/dL (12.0-16.0); Mean Corpuscular HGB CONC 32.5 g/dL (32.0-36.0); Mean Corpuscular Hemoglobin 27.6 pg (27.0-31.0); Mean Corpuscular Volume 84.9 fL (78.0-98.0); Mean Platelet Volume 7.1 fL (7.4-10.4); Platelet Count 287 thou/uL (130-400); RBC Distribution Width 13.8 % (11.5-14.5)
[2021-04-19 17:40] LABS: ALT (SGPT) 10 U/L (8-55); AST (SGOT) 15 U/L (5-34); Albumin 3.5 g/dL (3.4-4.8); Alkaline Phosphatase 79 U/L (40-110); Anion Gap 15 mmol/L (10-20); BUN (Urea Nitrogen) 12 mg/dL (9.8-20.1); Bilirubin, Total 0.7 mg/dL (0.2-1.2); Calc. Creatinine Clearance 0 mL/min (70-130); Carbon Dioxide 22 mmol/L (23-31); Chloride 101 mmol/L (98-107); Glucose 106 mg/dL (83-110); Protein, Total 7.5 g/dL (5.8-8.1); Sodium 134 mmol/L (136-145)
[2021-04-19 18:34] LABS: Bilirubin Negative (Negative); Blood, Urine Trace (Negative); Glucose, Urine (Dipstick) Negative (Negative); Ketone, Urine Negative (Negative); Leukocyte Negative (Negative); Nitrite Positive (Negative); Protein, Urine (Dipstick) Negative (Neg-Trace)
[2021-04-19 18:36] LABS: Clarity Cloudy (Clear)
[2021-04-19 18:39] LABS: Bacteria/HPF 4+ HPF (None Seen); RBC/HPF 0-3 HPF (0-3); Renal Epithelial 0-3 HPF (None Seen); Squamous Epithelial 0-3 HPF (0-3)
[2021-04-19] MEDS ORDERED: Azithromycin 500 MG VIAL ONE (18:44)
[2021-04-19] MEDS ORDERED: cefTRIAXone\\ROCEPHIN 1 GM VIAL ONE (18:44)
[2021-04-19] MEDS ORDERED: Ondansetron PF 4 MG/2 ML Vial IVP PRN (21:45)
[2021-04-19] MEDS ORDERED: Acetaminophen 325 MG TAB PO PRN (21:45)
[2021-04-19] MEDS ORDERED: Ondansetron ODT 4 MG TAB SL PRN (21:45)
[2021-04-19 21:54] VITALS: BMI 24.6
[2021-04-19] MEDS ORDERED: Calcium Carbonate 500 MG ChewTAB PO PRN (22:27)
[2021-04-19] MEDS ORDERED: Sodium Chloride 0.9% 500 ML IV SCH (22:45)
[2021-04-19] MEDS: Cefepime 1 GM in Sodium Chloride 0.9% 100 ML IVPB SCH (23:19)
[2021-04-20 04:50] LABS: #Eosinphils 0.1 thou/uL (0.0-0.7); #Lymphocytes 1.5 thou/uL (1.20-3.40); #Monocytes 1.4 thou/uL (0.11-0.59); #Neutrophils 12.1 thou/uL (1.40-6.50); %Basophils 0.2 % (0.0-1.0); %Eosinophils 0.6 % (0.0-10.0); %Monocytes 9.3 % (0.0-10.0); %Neutrophils 79.9 % (42.0-75.0); Hemoglobin 11.3 g/dL (12.0-16.0); Mean Corpuscular HGB CONC 31.5 g/dL (32.0-36.0); Mean Corpuscular Hemoglobin 27.2 pg (27.0-31.0); Mean Corpuscular Volume 86.5 fL (78.0-98.0); Mean Platelet Volume 7.3 fL (7.4-10.4); Platelet Count 261 thou/uL (130-400); RBC Distribution Width 13.9 % (11.5-14.5); Red Blood Cell (RBC) Count 4.17 mill/uL (4.20-5.40); White Blood Cell (WBC) Count 15.2 thou/uL (4.8-10.8)
[2021-04-20 05:28] LABS: ALT (SGPT) 11 U/L (8-55); AST (SGOT) 14 U/L (5-34); Albumin 3.1 g/dL (3.4-4.8); Alkaline Phosphatase 83 U/L (40-110); Anion Gap 13 mmol/L (10-20); BUN (Urea Nitrogen) 10 mg/dL (9.8-20.1); Bilirubin, Total 0.7 mg/dL (0.2-1.2); Calc. Creatinine Clearance 84 mL/min (70-130); Calcium 8.5 mg/dL (7.8-10.44); Carbon Dioxide 21 mmol/L (23-31); Chloride 104 mmol/L (98-107); Globulin 3.6 g/dL (2.4-3.5); Glucose 83 mg/dL (83-110); Potassium 3.8 mmol/L (3.5-5.1); Protein, Total 6.7 g/dL (5.8-8.1); Sodium 134 mmol/L (136-145)
[2021-04-20] MEDS: Levothyroxine Sodium 25 MCG TAB PO SCH (06:41)
[2021-04-20] MEDS: Enoxaparin Sodium 40 MG/0.4 ML SYRINGE SC SCH (09:04)
[2021-04-20] MEDS: Aspirin 81 mg Enteric Coated Tablet PO SCH (09:05)
[2021-04-20] MEDS: Cefepime 1 GM in Sodium Chloride 0.9% 100 ML IVPB SCH ×2 (11:02→23:19)
[2021-04-21] MEDS ORDERED: Metoprolol Tartrate 5 MG/5 ML VIAL IVP SCH (00:30)
[2021-04-21 01:39] LABS: Anion Gap 14 mmol/L (10-20); BUN (Urea Nitrogen) 12 mg/dL (9.8-20.1); Calc. Creatinine Clearance 75 mL/min (70-130); Calcium 8.8 mg/dL (7.8-10.44); Carbon Dioxide 23 mmol/L (23-31); Chloride 102 mmol/L (98-107); Glucose 110 mg/dL (83-110); Magnesium 1.9 mg/dL (1.6-2.6); Potassium 3.8 mmol/L (3.5-5.1); Sodium 135 mmol/L (136-145)
[2021-04-21] MEDS ORDERED: Fentanyl 100 MCG/2 ML VIAL SLOW IVP PRN (01:49)
[2021-04-21 02:37] LABS: Troponin I Less than 0.010 ng/mL (< 0.028)
[2021-04-21 05:45] LABS: #Eosinphils 0.2 thou/uL (0.0-0.7); #Lymphocytes 1.5 thou/uL (1.20-3.40); #Monocytes 1.1 thou/uL (0.11-0.59); #Neutrophils 11.2 thou/uL (1.40-6.50); %Basophils 0.2 % (0.0-1.0); %Eosinophils 1.4 % (0.0-10.0); %Lymphocytes 10.6 % (21.0-51.0); %Monocytes 8.1 % (0.0-10.0); %Neutrophils 79.7 % (42.0-75.0); Mean Corpuscular Hemoglobin 27.9 pg (27.0-31.0); Mean Corpuscular Volume 84.7 fL (78.0-98.0); Mean Platelet Volume 7.6 fL (7.4-10.4); Platelet Count 301 thou/uL (130-400); RBC Distribution Width 13.6 % (11.5-14.5); Red Blood Cell (RBC) Count 3.95 mill/uL (4.20-5.40); White Blood Cell (WBC) Count 14.1 thou/uL (4.8-10.8)
[2021-04-21 06:13] LABS: Anion Gap 13 mmol/L (10-20); BUN (Urea Nitrogen) 10 mg/dL (9.8-20.1); Calc. Creatinine Clearance 87 mL/min (70-130); Calcium 8.5 mg/dL (7.8-10.44); Carbon Dioxide 20 mmol/L (23-31); Chloride 106 mmol/L (98-107); Glucose 101 mg/dL (83-110); Potassium 3.8 mmol/L (3.5-5.1); Sodium 135 mmol/L (136-145)
[2021-04-21] MEDS: Levothyroxine Sodium 25 MCG TAB PO SCH (06:14)
[2021-04-21 06:16] LABS: Troponin I Less than 0.010 ng/mL (< 0.028)
[2021-04-21] MEDS ORDERED: Spironolactone 25 MG TAB PO SCH (09:00)
[2021-04-21] MEDS: Spironolactone 25 MG TAB PO SCH (09:13)
[2021-04-21] MEDS: ALPRAZolam 1 MG TAB PO PRN (09:13)
[2021-04-21] MEDS: Aspirin 81 mg Enteric Coated Tablet PO SCH (09:13)
[2021-04-21] MEDS: Polyethylene Glycol 3350 17 GM Packet PO SCH (09:13)
[2021-04-21] MEDS: Simethicone Chewable 80 MG TAB PO SCH ×3 (09:13→21:56)
[2021-04-21] MEDS: Enoxaparin Sodium 40 MG/0.4 ML SYRINGE SC SCH (09:13)
[2021-04-21] MEDS: Cefepime 1 GM in Sodium Chloride 0.9% 100 ML IVPB SCH ×2 (10:48→23:08)
[2021-04-21] MEDS ORDERED: Digoxin 0.5 MG/2 ML AMP SLOW IVP SCH ×2 (14:15→20:30)
[2021-04-21] MEDS ORDERED: Amiodarone 200 MG TAB PO SCH (14:15)
[2021-04-21] MEDS ORDERED: MELATONIN 3 MG PO SCH (21:00)
[2021-04-21] MEDS: Enoxaparin Sodium 60 MG/0.6 ML SYRINGE SC SCH (21:55)
[2021-04-21] MEDS: ALPRAZolam 1 MG TAB PO SCH (21:56)
[2021-04-21] MEDS: Amiodarone 200 MG TAB PO SCH (21:56)
[2021-04-21] MEDS: traZODone HCl 50 MG TAB PO SCH (21:56)
[2021-04-21] MEDS: risperiDONE 1 MG TAB PO SCH (21:56)
[2021-04-21] MEDS: Melatonin 3 MG TAB PO SCH (21:56)
[2021-04-22 05:09] LABS: #Eosinphils 0.3 thou/uL (0.0-0.7); #Lymphocytes 1.4 thou/uL (1.20-3.40); #Monocytes 1.1 thou/uL (0.11-0.59); #Neutrophils 6.8 thou/uL (1.40-6.50); %Basophils 0.3 % (0.0-1.0); %Eosinophils 3.4 % (0.0-10.0); %Lymphocytes 14.7 % (21.0-51.0); %Monocytes 11.1 % (0.0-10.0); %Neutrophils 70.5 % (42.0-75.0); Hemoglobin 11.1 g/dL (12.0-16.0); Mean Corpuscular HGB CONC 31.2 g/dL (32.0-36.0); Mean Corpuscular Hemoglobin 26.9 pg (27.0-31.0); Mean Corpuscular Volume 86.1 fL (78.0-98.0); Mean Platelet Volume 7.8 fL (7.4-10.4); Platelet Count 315 thou/uL (130-400); RBC Distribution Width 13.7 % (11.5-14.5); Red Blood Cell (RBC) Count 4.14 mill/uL (4.20-5.40); White Blood Cell (WBC) Count 9.7 thou/uL (4.8-10.8)
[2021-04-22 05:41] LABS: Anion Gap 14 mmol/L (10-20); BUN (Urea Nitrogen) 9 mg/dL (9.8-20.1); Calc. Creatinine Clearance 82 mL/min (70-130); Calcium 8.3 mg/dL (7.8-10.44); Carbon Dioxide 22 mmol/L (23-31); Chloride 104 mmol/L (98-107); Glucose 98 mg/dL (83-110); Potassium 3.8 mmol/L (3.5-5.1); Sodium 136 mmol/L (136-145)
[2021-04-22] MEDS: Levothyroxine Sodium 25 MCG TAB PO SCH (06:01)
[2021-04-22] MEDS: Enoxaparin Sodium 60 MG/0.6 ML SYRINGE SC SCH ×2 (08:24→20:06)
[2021-04-22] MEDS: Aspirin 81 mg Enteric Coated Tablet PO SCH (08:24)
[2021-04-22] MEDS: Digoxin 0.125 MG TAB PO SCH (08:25)
[2021-04-22] MEDS: Amiodarone 200 MG TAB PO SCH ×2 (08:25→20:07)
[2021-04-22] MEDS: Polyethylene Glycol 3350 17 GM Packet PO SCH (08:25)
[2021-04-22] MEDS: Simethicone Chewable 80 MG TAB PO SCH ×3 (08:25→20:06)
[2021-04-22] MEDS: Spironolactone 25 MG TAB PO SCH (08:25)
[2021-04-22] MEDS: Cefdinir 300 MG CAP PO SCH ×2 (08:27→20:06)
[2021-04-22 11:41] LABS: SARS-CoV-2 NAA Rapid Test Not Detected (NotDetected)
[2021-04-22] MEDS: ALPRAZolam 1 MG TAB PO PRN (14:53)
[2021-04-22] MEDS: risperiDONE 1 MG TAB PO SCH (20:06)
[2021-04-22] MEDS: ALPRAZolam 1 MG TAB PO SCH (20:06)
[2021-04-22] MEDS: Melatonin 3 MG TAB PO SCH (20:06)
[2021-04-22] MEDS: traZODone HCl 50 MG TAB PO SCH (20:07)
[2021-04-23] MEDS: ALPRAZolam 1 MG TAB PO PRN (01:30)
[2021-04-23 05:04] LABS: #Eosinphils 0.3 thou/uL (0.0-0.7); #Lymphocytes 1.5 thou/uL (1.20-3.40); #Monocytes 0.6 thou/uL (0.11-0.59); #Neutrophils 6.9 thou/uL (1.40-6.50); %Basophils 0.3 % (0.0-1.0); %Eosinophils 2.8 % (0.0-10.0); %Lymphocytes 15.7 % (21.0-51.0); %Monocytes 6.5 % (0.0-10.0); %Neutrophils 74.7 % (42.0-75.0); Hemoglobin 12.4 g/dL (12.0-16.0); Mean Corpuscular HGB CONC 31.9 g/dL (32.0-36.0); Mean Corpuscular Hemoglobin 27.4 pg (27.0-31.0); Mean Corpuscular Volume 86.1 fL (78.0-98.0); Mean Platelet Volume 7.5 fL (7.4-10.4); Platelet Count 317 thou/uL (130-400); RBC Distribution Width 13.9 % (11.5-14.5); Red Blood Cell (RBC) Count 4.53 mill/uL (4.20-5.40); White Blood Cell (WBC) Count 9.2 thou/uL (4.8-10.8)
[2021-04-23] MEDS: Levothyroxine Sodium 25 MCG TAB PO SCH (05:19)
[2021-04-23 05:23] LABS: Anion Gap 13 mmol/L (10-20); BUN (Urea Nitrogen) 9 mg/dL (9.8-20.1); Calc. Creatinine Clearance 82 mL/min (70-130); Calcium 8.9 mg/dL (7.8-10.44); Carbon Dioxide 22 mmol/L (23-31); Chloride 104 mmol/L (98-107); Glucose 84 mg/dL (83-110); Potassium 4.1 mmol/L (3.5-5.1); Sodium 135 mmol/L (136-145)
[2021-04-23] MEDS: Polyethylene Glycol 3350 17 GM Packet PO SCH (09:10)
[2021-04-23] MEDS: Amiodarone 200 MG TAB PO SCH (09:11)
[2021-04-23] MEDS: Simethicone Chewable 80 MG TAB PO SCH ×2 (09:11→15:46)
[2021-04-23] MEDS: Digoxin 0.125 MG TAB PO SCH (09:11)
[2021-04-23] MEDS: Aspirin 81 mg Enteric Coated Tablet PO SCH (09:11)
[2021-04-23] MEDS: Spironolactone 25 MG TAB PO SCH (09:11)
[2021-04-23] MEDS: Enoxaparin Sodium 60 MG/0.6 ML SYRINGE SC SCH (09:12)
[2021-04-23] MEDS: Cefdinir 300 MG CAP PO SCH (09:12)
[2021-04-23 10:41] VITALS: TEMP 97.7
[2021-04-23 16:10] VITALS: BP 112/59
[2021-05-05] MEDS ORDERED: Amiodarone 200 MG TAB PO SCH (09:00)
[2021-05-19] MEDS ORDERED: Amiodarone 200 MG TAB PO SCH (09:00)
== END 2021-04-23 16:55 | disposition hospice, inpatient (51) | DRG 872 ==
LOC: ERS 15:02 → 2NO 20:06
PROVIDERS: ADMIT Internal Medicine; ATTEND Internal Medicine
DX: A41.51 Sepsis due to Escherichia coli [E. coli] (principal); N39.0 Urinary tract infection, site not specified; I48.20 Chronic atrial fibrillation, unspecified; I48.92 Unspecified atrial flutter; E87.1 Hypo-osmolality and hyponatremia; F03.90 Unspecified dementia, unspecified severity, without behavioral disturbance, psychotic disturbance, mood disturbance, and anxiety; E03.9 Hypothyroidism, unspecified; R29.6 Repeated falls; F41.1 Generalized anxiety disorder; I10 Essential (primary) hypertension; E87.70 Fluid overload, unspecified; Z20.822 Contact with and (suspected) exposure to COVID-19; E88.09 Other disorders of plasma-protein metabolism, not elsewhere classified; Z96.651 Presence of right artificial knee joint; Z88.2 Allergy status to sulfonamides; Z87.891 Personal history of nicotine dependence; Z90.49 Acquired absence of other specified parts of digestive tract; Z95.810 Presence of automatic (implantable) cardiac defibrillator; Z98.890 Other specified postprocedural states; Z90.710 Acquired absence of both cervix and uterus
CPT/HCPCS: 36415; 51701; 71045; 80048; 80053; 81003; 81015; 83605; 83735; 83880; 84145; 84443; 84484; 85025; 87040; 87077; 87086; 87186; 93005; 93010; 93306; 96365; 96367; J0456; J0692; J0696; J1160; J1650; J3010; J3490; U0002; U0005

== ENCOUNTER 2023-01-07 07:29 | Emergency (ER) | payer MEDICARE, OTHER ==
[2023-01-07] MEDS ORDERED: Morphine 4 MG/ML VIAL ONE (08:22)
[2023-01-07 08:25] LABS: #Eosinphils 0.1 thou/uL (0.0-0.7); #Lymphocytes 1.9 thou/uL (1.20-3.40); #Monocytes 0.4 thou/uL (0.11-0.59); #Neutrophils 2.7 thou/uL (1.40-6.50); %Basophils 0.5 % (0.0-1.0); %Eosinophils 2.4 % (0.0-10.0); %Lymphocytes 36.5 % (21.0-51.0); %Monocytes 8.2 % (0.0-10.0); %Neutrophils 52.5 % (42.0-75.0); Hemoglobin 13.8 g/dL (12.0-16.0); Mean Corpuscular HGB CONC 32.2 g/dL (32.0-36.0); Mean Corpuscular Hemoglobin 28.4 pg (27.0-31.0); Mean Corpuscular Volume 88.2 fl (78.0-98.0); Mean Platelet Volume 8.3 fL (7.4-10.4); Platelet Count 204 10x3/uL (130-400); RBC Distribution Width 13.2 % (11.5-14.5); Red Blood Cell (RBC) Count 4.88 mill/uL (4.20-5.40); White Blood Cell (WBC) Count 5.2 10x3/uL (4.8-10.8)
[2023-01-07 08:41] LABS: ALT (SGPT) 33 U/L (8-55); AST (SGOT) 32 U/L (5-34); Albumin 3.8 g/dL (3.4-4.8); Alkaline Phosphatase 100 U/L (40-110); Anion Gap 11 mmol/L (10-20); BUN (Urea Nitrogen) 19 mg/dL (9.8-20.1); Bilirubin, Total 0.7 mg/dL (0.2-1.2); Calc. Creatinine Clearance 0 mL/min (70-130); Calcium 8.8 mg/dL (7.8-10.44); Carbon Dioxide 27 mmol/L (23-31); Chloride 106 mmol/L (98-107); Estimated GFR 88; Globulin 3.3 g/dL (2.4-3.5); Glucose 85 mg/dL (83-110); Lipase 15 U/L (8-78); Protein, Total 7.1 g/dL (5.8-8.1); Sodium 140 mmol/L (136-145)
[2023-01-07 10:25] LABS: Troponin I Less than 0.010 ng/mL (< 0.028)
== END 2023-01-07 12:52 ==
LOC: ERS 07:29
DX: R10.13 Epigastric pain (principal); E03.9 Hypothyroidism, unspecified; K21.9 Gastro-esophageal reflux disease without esophagitis; I10 Essential (primary) hypertension
CPT/HCPCS: 36415; 71045; 80053; 83690; 83880; 84443; 84484; 85025; 85379; 93005; 96374; J2270